=== PATIENT | female | born 1975 | race Caucasian/White ===

== ENCOUNTER → 2016-04-24 | Outpatient (CLI) | payer OTHER ==
[~2016-04-24] MED LIST: ASPI81TA85 PO; FURO1TAB15 PO; GABA600T PO; KLON2TAB PO; KLOR1TAB69 PO; LEXA1TAB2 PO; LIPI20TA PO; MOBI15TA PO; NEXI40CA PO; NITR0.4D6 TD; PROA1AER INH; ROBA750T4 PO; TRAM50TA2 PO; VOLT1GEL24 TD
[2016-04-24 15:19] LABS: MEAN CORPUSCULAR HEMOGLOBIN 30.9 pg (27.0-33.0); MEAN CORPUSCULAR HGB CONC 33.3 g/dl (32.0-36.5); MEAN CORPUSCULAR VOLUME 92.5 fl (80.0-96.0); RED CELL DISTRIBUTION WIDTH 14.3 % (11.5-14.5); WHITE BLOOD COUNT 11.1 K/mm3 (4.0-10.0)
[2016-04-24 15:40] LABS: ALBUMIN 3.1 GM/DL (3.2-5.2); ALKALINE PHOSPHATASE 181 U/L (45-117); ALT/SGPT 22 U/L (12-78); ANION GAP 8 MEQ/L (8-16); AST/SGOT 17 U/L (15-37); BILIRUBIN,TOTAL 0.2 MG/DL (0.2-1.0); BLOOD UREA NITROGEN 3 MG/DL (7-18); CALCIUM LEVEL 8.9 MG/DL (8.5-10.1); CARBON DIOXIDE LEVEL 30 MEQ/L (21-32); CHLORIDE LEVEL 101 MEQ/L (98-107); CREATININE FOR GFR 0.75 MG/DL (0.55-1.02); GLOMERULAR FILTRATION RATE > 60.0 (>58); GLUCOSE, FASTING 100 MG/DL (70-105); POTASSIUM SERUM 3.7 MEQ/L (3.5-5.1); SODIUM LEVEL 139 MEQ/L (136-145); TOTAL PROTEIN 6.4 GM/DL (6.4-8.2)
[2016-04-24 15:41] LABS: ALBUMIN/GLOBULIN RATIO 0.94 (1.00-1.93); THYROXINE (T4) 7.7 UG/DL (4.5-12.0)
== END ==
LOC: M LAB 14:34
PROVIDERS: ATTEND Nurse Practitioner Psychiatric/Mental Health
DX: Z00.00 Encounter for general adult medical examination without abnormal findings (principal)

== ENCOUNTER → 2016-05-05 | Outpatient (REF) | payer OTHER ==
[2016-05-05 12:26] LABS: TOTAL PROTEIN 5.9 GM/DL (6.4-8.2)
== END ==
LOC: M SFHCCLAY 08:47
PROVIDERS: ATTEND Family Medicine
DX: R74.8 Abnormal levels of other serum enzymes (principal); E88.09 Other disorders of plasma-protein metabolism, not elsewhere classified

== ENCOUNTER → 2016-05-18 | Outpatient (CLI) | payer OTHER ==
[2016-05-18 20:34] LABS: COMPLEMENT C3 141 MG/DL (90-180); COMPLEMENT C4 20.2 MG/DL (10-40); IMMUNOGLOBULIN G 628 MG/DL (681-1648); IMMUNOGLOBULIN M 65.2 MG/DL (40-230)
[2016-05-18 21:03] LABS: IMMUNOGLOBULIN E < 3.6 IU/ML (<100)
== END ==
LOC: M WUC 17:51
PROVIDERS: ATTEND Allergy & Immunology
DX: J32.0 Chronic maxillary sinusitis (principal); H10.45 Other chronic allergic conjunctivitis; J45.20 Mild intermittent asthma, uncomplicated; L27.2 Dermatitis due to ingested food; K52.29 Other allergic and dietetic gastroenteritis and colitis

== ENCOUNTER → 2016-05-18 | Outpatient (REF) | payer OTHER ==
[2016-05-21 00:06] LABS: Lyme Disease IgG/IgM Antibodie <0.91 ISR (0.00-0.90); Lyme Disease IgM Ab Quantitati <0.80 index (0.00-0.79)
== END ==
LOC: M SFHCCLAY 16:27
PROVIDERS: ATTEND Family Medicine
DX: Z20.9 Contact with and (suspected) exposure to unspecified communicable disease (principal); F33.1 Major depressive disorder, recurrent, moderate

== ENCOUNTER → 2016-08-11 | Outpatient (CLI) | payer OTHER ==
[~2016-08-11] MED LIST changes: +METH1CAP4 PO; +REXU1TAB3 PO
== END ==
LOC: M SLEEP 20:13
PROVIDERS: ATTEND Nurse Practitioner Adult Health
DX: G47.30 Sleep apnea, unspecified (principal)

== ENCOUNTER → 2016-08-11 | Outpatient (REF) | payer OTHER ==
[2016-08-11 16:54] LABS: ALBUMIN 2.8 GM/DL (3.2-5.2); ALKALINE PHOSPHATASE 145 U/L (45-117); ALT/SGPT 25 U/L (12-78); ANION GAP 4 MEQ/L (8-16); AST/SGOT 21 U/L (15-37); BILIRUBIN,TOTAL 0.3 MG/DL (0.2-1.0); BLOOD UREA NITROGEN 6 MG/DL (7-18); CARBON DIOXIDE LEVEL 33 MEQ/L (21-32); CHLORIDE LEVEL 106 MEQ/L (98-107); CREATININE FOR GFR 0.76 MG/DL (0.55-1.02); GLOMERULAR FILTRATION RATE > 60.0 (>58); GLUCOSE, FASTING 118 MG/DL (70-105); POTASSIUM SERUM 3.7 MEQ/L (3.5-5.1); SODIUM LEVEL 143 MEQ/L (136-145); TOTAL PROTEIN 6.3 GM/DL (6.4-8.2)
== END ==
LOC: M SFHCCLAY 11:14
PROVIDERS: ATTEND Family Medicine
DX: R60.9 Edema, unspecified (principal)

== ENCOUNTER 2016-08-17 19:07 | Emergency (ER) | payer OTHER ==
[~2016-08-17] VITALS: Ht 162.6 cm; Wt 90.7 kg
[~2016-08-17 19:07] MED LIST changes: -METH1CAP4 PO; -REXU1TAB3 PO
[2016-08-17] MEDS ORDERED: REXU1TAB3 PO (19:22)
[2016-08-17] MEDS ORDERED: METH1CAP4 PO (19:22)
[2016-08-17] MEDS ORDERED: ASPIRIN 81 MG CHEW TABLET PO ONE (20:00)
[2016-08-17] MEDS ORDERED: ATORVASTATIN 20 MG TAB PO ONE (20:00)
[2016-08-17 20:15] VITALS: BP 113/65
[2016-08-17] MEDS ORDERED: NITROGLYCERIN 0.4 MG SUBL TABLET SL STA (20:15)
[2016-08-17 20:28] LABS: BASO # 0.1 K/mm3 (0.0-0.2); BASO % 0.8 % (0.0-1.0); EOS # 0.3 K/mm3 (0.0-0.50); EOS % 2.5 % (0.0-3.0); LARGE UNSTAINED CELL # 0.3 K/mm3 (0.0-0.4); LARGE UNSTAINED CELL % 2.4 % (0.0-4.0); LYMPH # 3.3 K/mm3 (1.5-4.5); LYMPH % 27.6 % (24.0-44.0); MEAN CORPUSCULAR HEMOGLOBIN 30.3 pg (27.0-33.0); MEAN CORPUSCULAR HGB CONC 34.1 g/dl (32.0-36.5); MEAN CORPUSCULAR VOLUME 89.1 fl (80.0-96.0); MONO # 0.9 K/mm3 (0.0-0.8); MONO % 7.8 % (0.0-5.0); NEUTROPHILS # 7.1 K/mm3 (1.8-7.7); NEUTROPHILS % 58.9 % (36.0-66.0); PLATELET COUNT, AUTOMATED 283 k/mm3 (150-450); WHITE BLOOD COUNT 12.1 K/mm3 (4.0-10.0)
[2016-08-17 20:33] LABS: INR 1.1
[2016-08-17 20:34] LABS: CONTROL LINE HCG INT CTR LINE PRESENT
[2016-08-17 20:38] LABS: ALBUMIN 3.1 GM/DL (3.2-5.2); ALBUMIN/GLOBULIN RATIO 0.76 (1.00-1.93); ALKALINE PHOSPHATASE 156 U/L (45-117); ALT/SGPT 26 U/L (12-78); ANION GAP 7 MEQ/L (8-16); AST/SGOT 21 U/L (15-37); BILIRUBIN,DIRECT < 0.1 MG/DL (0.0-0.2); BILIRUBIN,TOTAL 0.4 MG/DL (0.2-1.0); BLOOD UREA NITROGEN 8 MG/DL (7-18); CALCIUM LEVEL 9.2 MG/DL (8.5-10.1); CARBON DIOXIDE LEVEL 34 MEQ/L (21-32); CHLORIDE LEVEL 90 MEQ/L (98-107); CREATININE FOR GFR 0.95 MG/DL (0.55-1.02); GLOMERULAR FILTRATION RATE > 60.0 (>58); GLUCOSE, FASTING 112 MG/DL (70-105); POTASSIUM SERUM 2.6 MEQ/L (3.5-5.1); SODIUM LEVEL 131 MEQ/L (136-145); TOTAL PROTEIN 7.2 GM/DL (6.4-8.2)
[2016-08-17] MEDS ORDERED: MORPHINE 2 MG/ML 1ML SYRINGE IV ONE (20:45)
[2016-08-17] MEDS ORDERED: KCL 10MEQ IN 100ML SWI (KRUN) 10 MEQ in APPROPRIATE DILUENT 1 EA IV ONE ×2 (21:00)
[2016-08-17] MEDS ORDERED: POTASSIUM CHLORIDE 10 MEQ SR TABLET PO ONE (21:00)
[2016-08-17 21:05] LABS: MAGNESIUM LEVEL 1.7 MG/DL (1.8-2.4)
[2016-08-17] MEDS ORDERED: MAG SULF 1GM/100ML (MAG RUN) 1 GM in APPROPRIATE DILUENT 1 EA IV ONE (21:15)
[2016-08-17] MEDS: NS 1,000 ML IV SCH ×2 (21:53→22:05)
[2016-08-17] MEDS ORDERED: CLOPIDOGREL 300 MG TAB (PLAVIX) PO STA (22:05)
[2016-08-17] MEDS ORDERED: ONDANSETRON 4MG/2ML VIAL (J2405) IV ONE (22:15)
[2016-08-17] MEDS ORDERED: GI COCKTAIL 50ML BTL(HYOSCYAMINE/MAALOX/LIDOCAINE VISCOUS)(1:3:1) PO ONE (22:30)
[2016-08-17 23:26] VITALS: BP 100/62
--- NOTE | 2016-08-18 00:51 | REP ---
Clinical: Chest pain. Technique: PA and lateral. Comparison: 05/05/2012. Findings: Right middle lobe atelectasis noted. Mediastinum and cardiac silhouette normal. The inner lung gilman clear without further consolidation, effusion, or pneumothorax. Skeletal structures intact. Impression: Right middle lobe atelectasis. Signed by Escobar Haddad MD 08/18/2016 12:42 A
--- NOTE | 2016-08-18 11:55 | ECGEPIP ---
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
--- NOTE | 2016-08-18 12:04 | ECGEPIP ---
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
== END 2016-08-17 23:38 | disposition short-term general hospital (02) ==
LOC: M ED 20:38
DX: I20.0 Unstable angina (principal); R07.89 Other chest pain; R06.02 Shortness of breath; E87.6 Hypokalemia; I25.2 Old myocardial infarction; K21.9 Gastro-esophageal reflux disease without esophagitis; E78.5 Hyperlipidemia, unspecified; F31.9 Bipolar disorder, unspecified; F90.9 Attention-deficit hyperactivity disorder, unspecified type; F17.210 Nicotine dependence, cigarettes, uncomplicated; Z79.899 Other long term (current) drug therapy; Z79.82 Long term (current) use of aspirin; Z79.891 Long term (current) use of opiate analgesic; Z91.041 Radiographic dye allergy status; Z91.013 Allergy to seafood; Z95.5 Presence of coronary angioplasty implant and graft

== ENCOUNTER → 2016-08-21 | Outpatient (REF) | payer OTHER ==
[~2016-08-21] MED LIST changes: +METH1CAP4 PO; +REXU1TAB3 PO
[2016-08-21 18:03] LABS: INR 0.96
[2016-08-21 18:35] LABS: ANION GAP 10 MEQ/L (8-16); BLOOD UREA NITROGEN 9 MG/DL (7-18); CARBON DIOXIDE LEVEL 32 MEQ/L (21-32); CHLORIDE LEVEL 97 MEQ/L (98-107); CHOLESTEROL LEVEL 156 MG/DL (<200); CREATININE FOR GFR 0.99 MG/DL (0.55-1.02); FERRITIN 18 NG/ML (8-252); FREE T4 1.17 NG/DL (0.76-1.46); GLOMERULAR FILTRATION RATE > 60.0 (>58); GLUCOSE, FASTING 144 MG/DL (70-105); POTASSIUM SERUM 2.8 MEQ/L (3.5-5.1); SODIUM LEVEL 139 MEQ/L (136-145); TRIGLYCERIDES LEVEL 209 MG/DL (<150)
[2016-08-23 09:34] LABS: HEPATITIS B SURFACE ANTIBODY NEGATIVE (POSITIVE)
== END ==
LOC: M SFHCCLAY 10:18
PROVIDERS: ATTEND Family Medicine
DX: E88.09 Other disorders of plasma-protein metabolism, not elsewhere classified (principal); Z95.5 Presence of coronary angioplasty implant and graft

== ENCOUNTER → 2016-08-22 | Outpatient (REF) | payer OTHER | LOC: M SFHCCLAY 11:43 | PROVIDERS: ATTEND Family Medicine | DX: E88.09 Other disorders of plasma-protein metabolism, not elsewhere classified (principal); Z95.5 Presence of coronary angioplasty implant and graft ==

== ENCOUNTER → 2016-08-28 | Outpatient (REF) | payer OTHER ==
[2016-08-28 18:06] LABS: ANION GAP 5 MEQ/L (8-16); BLOOD UREA NITROGEN 9 MG/DL (7-18); CALCIUM LEVEL 8.8 MG/DL (8.5-10.1); CARBON DIOXIDE LEVEL 29 MEQ/L (21-32); CHLORIDE LEVEL 109 MEQ/L (98-107); CREATININE FOR GFR 0.87 MG/DL (0.55-1.02); GLOMERULAR FILTRATION RATE > 60.0 (>58); GLUCOSE, FASTING 137 MG/DL (70-105); SODIUM LEVEL 143 MEQ/L (136-145)
== END ==
LOC: M SFHCCLAY 09:26
PROVIDERS: ATTEND Family Medicine
DX: K21.9 Gastro-esophageal reflux disease without esophagitis (principal); E88.09 Other disorders of plasma-protein metabolism, not elsewhere classified

== ENCOUNTER → 2016-08-29 | Outpatient (REF) | payer OTHER ==
[2016-08-29 20:53] LABS: MEAN CORPUSCULAR HEMOGLOBIN 30.6 pg (27.0-33.0); MEAN CORPUSCULAR HGB CONC 33.5 g/dl (32.0-36.5); MEAN CORPUSCULAR VOLUME 91.2 fl (80.0-96.0); PLATELET COUNT, AUTOMATED 340 k/mm3 (150-450); RED CELL DISTRIBUTION WIDTH 14.2 % (11.5-14.5); WHITE BLOOD COUNT 10.9 K/mm3 (4.0-10.0)
[2016-08-29 21:57] LABS: EOSINOPHILS 5 % (0-5); PLATELET CLUMPS MODERATE AMT
[2016-08-31 10:50] LABS: ALBUMIN 3.46 GM/DL (3.29-5.55); ALBUMIN % 49.4 % (55.8-66.1); GAMMA GLOBULIN % 12.4 % (11.1-18.8)
== END ==
LOC: M SFHCCLAY 12:20
PROVIDERS: ATTEND Family Medicine
DX: R60.9 Edema, unspecified (principal); R80.9 Proteinuria, unspecified

== ENCOUNTER → 2016-09-21 | Outpatient (REF) | payer OTHER ==
[~2016-09-21] MED LIST changes: -FURO1TAB15 PO; +FURO80TA2 PO; -PROA1AER INH; +PROAAER10 INH; +VOLT1GEL15 TD; -VOLT1GEL24 TD
== END ==
LOC: M LAB REF 11:05
PROVIDERS: ATTEND Internal Medicine
DX: R94.5 Abnormal results of liver function studies (principal); K21.9 Gastro-esophageal reflux disease without esophagitis; R14.0 Abdominal distension (gaseous); R10.30 Lower abdominal pain, unspecified

== ENCOUNTER → 2016-09-24 | Outpatient (CLI) | payer OTHER ==
--- NOTE | 2016-09-26 10:08 | SLEEPCENT ---
DATE OF PROCEDURE: 09/24/2016 REQUESTING PROVIDER: Dorothea Ramos NP INTERPRETATION: Nocturnal polysomnography was performed for the titration of pressure therapy in this patient with obstructive sleep apnea syndrome, apnea-hypopnea index of 11. For testing, a ResMed Quattro full face mask of extra small size was used, 4 cm of water pressure were applied to the circuit and the lights were extinguished. 8 hours and 14 minutes of data were reviewed. There were 437 minutes of sleep identified. Sleep latency was prolonged at 29 minutes. Rapid eye movement (REM) latency was prolonged at 331 minutes. Sleep architecture improved late in the study with one REM period. Overall sleep efficiency was 89%. The patient's electrocardiogram (EKG) showed a sinus rhythm with an average heart rate of 67 beats per minute. Electroencephalogram (EEG) showed fairly normal waveforms for awake and sleep. Respiratory events were fully palliated with CPAP at a pressure of 7. However, hypoventilatory oxygen desaturations were seen, prompting the addition of supplemental oxygen. Best sleep was seen on a CPAP pressure of 7 with 4 liters of oxygen bled through the system to address hypoventilatory desaturations. IMPRESSION: 1. Obstructive sleep apnea syndrome (G47.33). RECOMMENDATIONS: Nightly use of pressure therapy at 7 cm of water with 4 liters of oxygen bled through the system to address hypoventilatory oxygen desaturations.
== END ==
LOC: M SLEEP 20:00
PROVIDERS: ATTEND Nurse Practitioner Adult Health
DX: G47.33 Obstructive sleep apnea (adult) (pediatric) (principal)

== ENCOUNTER → 2016-09-27 | Outpatient (REF) | payer OTHER | LOC: M LAB REF 16:22 | PROVIDERS: ATTEND Internal Medicine | DX: R19.7 Diarrhea, unspecified (principal) ==

== ENCOUNTER → 2016-10-04 | Outpatient (REF) | payer OTHER | LOC: M LAB REF 12:48 | PROVIDERS: ATTEND Internal Medicine Nephrology | DX: N39.41 Urge incontinence (principal); I10 Essential (primary) hypertension ==

== ENCOUNTER → 2016-10-19 | Outpatient (REF) | payer OTHER | LOC: M SFHCCLAY 13:34 | PROVIDERS: ATTEND Family Medicine | DX: Z53.8 Procedure and treatment not carried out for other reasons (principal); R60.9 Edema, unspecified; E83.42 Hypomagnesemia ==

== ENCOUNTER → 2016-10-19 | Outpatient (REF) | payer OTHER | LOC: M LAB REF 16:23 | PROVIDERS: ATTEND Internal Medicine Nephrology | DX: I10 Essential (primary) hypertension (principal) ==

== ENCOUNTER → 2016-10-23 | Outpatient (REF) | payer OTHER ==
[2016-10-23 18:27] LABS: ALBUMIN 2.9 GM/DL (3.2-5.2); ANION GAP 9 MEQ/L (8-16); BLOOD UREA NITROGEN 9 MG/DL (7-18); CALCIUM LEVEL 8.6 MG/DL (8.5-10.1); CARBON DIOXIDE LEVEL 26 MEQ/L (21-32); CHLORIDE LEVEL 108 MEQ/L (98-107); CREATININE FOR GFR 0.86 MG/DL (0.55-1.02); GLOMERULAR FILTRATION RATE > 60.0 (>58); GLUCOSE, FASTING 94 MG/DL (70-105); MAGNESIUM LEVEL 2.1 MG/DL (1.8-2.4); PHOSPHORUS LEVEL 3.1 MG/DL (2.5-4.9); POTASSIUM SERUM 4.5 MEQ/L (3.5-5.1); SODIUM LEVEL 143 MEQ/L (136-145)
== END ==
LOC: M SFHCCLAY 10:57
PROVIDERS: ATTEND Family Medicine
DX: R60.9 Edema, unspecified (principal); E83.42 Hypomagnesemia

== ENCOUNTER → 2016-11-23 | Outpatient (REF) | payer OTHER ==
[2016-11-24 12:42] LABS: ALBUMIN 3.2 GM/DL (3.2-5.2); ANION GAP 8 MEQ/L (8-16); BLOOD UREA NITROGEN 10 MG/DL (7-18); CALCIUM LEVEL 9.1 MG/DL (8.5-10.1); CARBON DIOXIDE LEVEL 30 MEQ/L (21-32); CHLORIDE LEVEL 104 MEQ/L (98-107); CREATININE FOR GFR 0.89 MG/DL (0.55-1.02); FREE T4 0.94 NG/DL (0.76-1.46); GLOMERULAR FILTRATION RATE > 60.0 (>58); GLUCOSE, FASTING 96 MG/DL (70-105); PHOSPHORUS LEVEL 3.2 MG/DL (2.5-4.9); SODIUM LEVEL 142 MEQ/L (136-145)
== END ==
LOC: M SFHCCLAY 16:03
PROVIDERS: ATTEND Family Medicine
DX: E21.3 Hyperparathyroidism, unspecified (principal); I25.10 Atherosclerotic heart disease of native coronary artery without angina pectoris

== ENCOUNTER → 2016-12-12 | Outpatient (REF) | payer OTHER ==
[2016-12-12 18:08] LABS: CALCIUM, URINE 6.4 MG/DL; URINE PHOSPHOROUS 40.1 MG/DL
[2016-12-12 22:07] LABS: PHOSPHOROUS 24 HR URINE 781.9 MG/24HR (400-1300)
== END ==
LOC: M LAB REF 11:33
PROVIDERS: ATTEND Internal Medicine
DX: E21.3 Hyperparathyroidism, unspecified (principal)

== ENCOUNTER → 2017-01-23 | Outpatient (CLI) | payer OTHER ==
--- NOTE | 2017-01-23 13:47 | REP ---
Clinical: Acute cough x 3 weeks . Comparison: 08/17/2016 . Technique: PA and lateral. Findings: The mediastinum and cardiac silhouette are normal. The lung gilman are clear and without acute consolidation, effusion, or pneumothorax. The skeletal structures are intact and normal. Impression: 1. No acute cardiopulmonary process. Signed by Escobar Haddad MD 01/23/2017 01:38 P
== END ==
LOC: M CLY 13:10
PROVIDERS: ATTEND Nurse Practitioner Family
DX: R06.02 Shortness of breath (principal); R05 Cough; J01.41 Acute recurrent pansinusitis

== ENCOUNTER → 2017-01-23 | Outpatient (REF) | payer OTHER ==
[2017-01-23 19:35] LABS: ALBUMIN 3.1 GM/DL (3.2-5.2); ALBUMIN/GLOBULIN RATIO 0.84 (1.00-1.93); ALKALINE PHOSPHATASE 177 U/L (45-117); ALT/SGPT 22 U/L (12-78); ANION GAP 9 MEQ/L (8-16); AST/SGOT 15 U/L (7-37); BILIRUBIN,TOTAL 0.2 MG/DL (0.2-1.0); BLOOD UREA NITROGEN 6 MG/DL (7-18); CALCIUM LEVEL 8.6 MG/DL (8.5-10.1); CARBON DIOXIDE LEVEL 27 MEQ/L (21-32); CHLORIDE LEVEL 103 MEQ/L (98-107); CREATININE FOR GFR 1.04 MG/DL (0.55-1.02); GLOMERULAR FILTRATION RATE > 60.0 (>58); GLUCOSE, FASTING 91 MG/DL (70-105); POTASSIUM SERUM 3.6 MEQ/L (3.5-5.1); SODIUM LEVEL 139 MEQ/L (136-145); TOTAL PROTEIN 6.8 GM/DL (6.4-8.2)
[2017-01-23 19:50] LABS: BASO # 0.1 10^3/uL (0.0-0.2); BASO % 0.7 % (0.0-1.0); EOS # 0.1 10^3/uL (0.0-0.50); EOS % 0.8 % (0.0-3.0); IMMATURE GRANULOCYTE % 0.2 % (0-0); LYMPH # 1.6 10^3/uL (1.5-4.5); LYMPH % 19.2 % (24.0-44.0); MEAN CORPUSCULAR HEMOGLOBIN 28.3 pg (27.0-33.0); MEAN CORPUSCULAR HGB CONC 32.9 g/dl (32.0-36.5); MEAN CORPUSCULAR VOLUME 86.1 fl (80.0-96.0); MONO # 1.2 10^3/uL (0.0-0.8); MONO % 13.5 % (0.0-5.0); NEUTROPHILS # 5.6 10^3/uL (1.8-7.7); NEUTROPHILS % 65.6 % (36.0-66.0); PLATELET COUNT, AUTOMATED 164 10^3/uL (150-450); RED CELL DISTRIBUTION WIDTH 15.9 % (11.5-14.5); WHITE BLOOD COUNT 8.5 10^3/uL (4.0-10.0)
== END ==
LOC: M SFHCCLAY 11:14
PROVIDERS: ATTEND Nurse Practitioner Family
DX: R06.02 Shortness of breath (principal); R05 Cough; J01.41 Acute recurrent pansinusitis

== ENCOUNTER → 2017-01-26 | Outpatient (REF) | payer OTHER ==
[~2017-01-26] MED LIST changes: +ADDE1TAB14 PO; +ASPI1TAB PO; +ATOR40TA75 PO; +BREO1INH INH; +CLON1TAB; +CLON1TAB PO; +DOXY100T16; +DOXY100T16 PO; +ESCI20TA; +ESCI20TA PO; +LINZ290C PO; +MAG400TA; +MAGN400T5 PO; +MELO15TA4 PO; +OMEP40CA2; +OMEP40CA2 PO; +POTA10CA PO; +REXU1TAB4; +REXU1TAB4 PO; +RITA10TA; +TRAZ1TAB14; +TRAZ1TAB14 PO
== END ==
LOC: M SFHCCLAY 09:05
PROVIDERS: ATTEND Family Medicine
DX: J40 Bronchitis, not specified as acute or chronic (principal)

== ENCOUNTER 2017-01-29 15:18 | Inpatient (IN) | payer OTHER ==
[~2017-01-29] VITALS: Ht 162.6 cm; Wt 94.7 kg
[~2017-01-29 15:18] MED LIST changes: -ADDE1TAB14 PO; -ASPI1TAB PO; -ATOR40TA75 PO; -BREO1INH INH; -CLON1TAB; -CLON1TAB PO; -DOXY100T16; -DOXY100T16 PO; -ESCI20TA; -ESCI20TA PO; -LINZ290C PO; -MAG400TA; -MAGN400T5 PO; -MELO15TA4 PO; -OMEP40CA2; -OMEP40CA2 PO; -POTA10CA PO; -REXU1TAB4; -REXU1TAB4 PO; -RITA10TA; -TRAZ1TAB14; -TRAZ1TAB14 PO
[2017-01-29] MEDS ORDERED: MAG400TA (15:31)
[2017-01-29] MEDS ORDERED: TRAZ1TAB14 (15:31)
[2017-01-29] MEDS ORDERED: DOXY100T16 (15:31)
[2017-01-29] MEDS ORDERED: RITA10TA (15:31)
[2017-01-29] MEDS ORDERED: OMEP40CA2 (15:31)
[2017-01-29] MEDS ORDERED: ADDE1TAB14 PO ×2 (15:31→19:25)
[2017-01-29] MEDS ORDERED: REXU1TAB4 (15:31)
[2017-01-29] MEDS ORDERED: CLON1TAB (15:32)
[2017-01-29] MEDS ORDERED: ESCI20TA (15:32)
[2017-01-29] MEDS ORDERED: dexameTHASONE 20 MG/5 ML VIAL (J1100) IV ONE (17:00)
[2017-01-29] MEDS ORDERED: ALBUTEROL SULFATE 2.5 MG/0.5 ML INH NEB SOLN NEB ONE (17:00)
[2017-01-29] MEDS ORDERED: IPRATROPIUM 0.5MG/ALBUTEROL 2.5MG INH SOL UD 3ML (DUONEB)(J7620) NEB PRN (17:00)
[2017-01-29 17:35] LABS: BASO % 0.2 % (0.0-1.0); IMMATURE GRANULOCYTE % 0.8 % (0-0); LYMPH # 2.6 10^3/uL (1.5-4.5); LYMPH % 10.7 % (24.0-44.0); MEAN CORPUSCULAR HEMOGLOBIN 28.4 pg (27.0-33.0); MEAN CORPUSCULAR HGB CONC 33.8 g/dl (32.0-36.5); MONO # 0.7 10^3/uL (0.0-0.8); MONO % 2.8 % (0.0-5.0); NEUTROPHILS % 85.5 % (36.0-66.0); PLATELET COUNT, AUTOMATED 441 10^3/uL (150-450); RED CELL DISTRIBUTION WIDTH 15.6 % (11.5-14.5); WHITE BLOOD COUNT 24.6 10^3/uL (4.0-10.0)
--- NOTE | 2017-01-29 17:40 | REP ---
Clinical: Acute cough and dyspnea. Technique: PA and lateral. Comparison: 01/23/2017, 08/17/2016. Findings: Mediastinum and cardiac silhouette are within normal limits. Coarsened interstitial changes may reflect bronchitis. No focal consolidation, effusion, or pneumothorax. Skeletal structures are intact. Impression: Cannot exclude bronchitis. No focal consolidation. Signed by Escobar Haddad MD 01/29/2017 05:31 P
[2017-01-29 18:01] LABS: ALBUMIN 3.2 GM/DL (3.2-5.2); ALBUMIN/GLOBULIN RATIO 0.73 (1.00-1.93); ALKALINE PHOSPHATASE 163 U/L (45-117); ALT/SGPT 27 U/L (12-78); AST/SGOT 14 U/L (7-37); BILIRUBIN,DIRECT < 0.1 MG/DL (0.0-0.2); BILIRUBIN,TOTAL 0.4 MG/DL (0.2-1.0); TOTAL PROTEIN 7.6 GM/DL (6.4-8.2)
[2017-01-29 18:08] LABS: ANION GAP 6 MEQ/L (8-16); BLOOD UREA NITROGEN 16 MG/DL (7-18); CALCIUM LEVEL 9.8 MG/DL (8.5-10.1); CARBON DIOXIDE LEVEL 31 MEQ/L (21-32); CHLORIDE LEVEL 101 MEQ/L (98-107); CREATININE FOR GFR 0.97 MG/DL (0.55-1.02); GLOMERULAR FILTRATION RATE > 60.0 (>58); GLUCOSE, FASTING 117 MG/DL (70-105); POTASSIUM SERUM 4.1 MEQ/L (3.5-5.1); SODIUM LEVEL 138 MEQ/L (136-145)
[2017-01-29] MEDS ORDERED: ACETAMINOPHEN TAB 650MG DOSE (2X325MG) PO PRN (19:00)
--- NOTE | 2017-01-29 19:23 | HPEPDOC ---
General Date of Admission Jan 29, 2017 at 18:49 Chief Complaint The patient is a 41-year-old female Presented to the ER with complaints of difficulty breathing History of Present Illness Patient is a 41-year-old female with a PMHx of CAD s/p stent, DLP, Asthma (diagnosed as a child), ASA on CPAP, Depression / Anxiety and GERD who presented to the ER with complaints of difficulty breathing. Patient has noted that 3 days prior. She had seen her primary care provider Evelin Mcallister, who prescribed her prednisone, ipratropium inhaler and Levaquin. Despite being on this therapy patient had failed to improve. Currently she notes that her breathing has worsened over a total of 7 days. She notes that she has a cough that is nonproductive. She denies any fevers but notes that she does experience chills. She denies any chest pain or palpitations. She does report wheezing. Patient denies any nausea, vomiting, abdominal pain, constipation, diarrhea or dysuria. In the emergency room patient has received 2 breathing treatments and a dose of dexamethasone. Upon evaluation, patient was found to have a drop in her saturation. Hospitalist team was then called for admission Allergies Coded Allergies: Contrast Media (Verified Allergy, Intermediate, IVP DYE - HIVES, 08/17/16) Prochlorperazine (Verified Allergy, Intermediate, HIVES, 08/17/16) Shellfish Allergy (Verified Allergy, Mild, anaphylaxsis, 08/17/16) FISH (Unverified Allergy, Unknown, 08/17/16) Past Medical History Medical History CAD s/p stent, DLP, Asthma (diagnosed as a child), ASA on CPAP, Depression / Anxiety and GERD Surgical History Appendectomy Cholecystectomy Family History - Mother with history of breast cancer - Father with history of HTN Social History - Denies the use of alcohol or illicit substances, smoker of 20 years at 1 pack per day - Denies recent travel or sick contacts - Lives with daughter - Occupation; unemployed Review of Symptoms Other systems Review of systems negative otherwise stated in HPI Vital Signs - Vitals: BP 115/74, HR 80, RR 18, Sat 94%RA, Temp 98.1F - General: Lying in bed, No acute distress, Speaking in full sentences, AAOx3 - HEENT: NC, AT, PERRLA, EOMI - CVS: RRR, +S1S2 - Lungs: Fair air entry bilaterally, Diffuse wheezing at bilateral lung gilman - Abdomen: Soft, Non-distended, Non-tender - Extremities: No lower extremity edema, No calf tenderness - Neuro: No focal motor or sensory deficit - Skin: No visible rashes Laboratory Data Labs 24H Laboratory Tests 2 01/29/17 17:29: Immature Granulocyte % (Auto) 0.8H, White Blood Count 24.6H, Red Blood Count 5.11, Hemoglobin 14.5, Hematocrit 42.9, Mean Corpuscular Volume 84.0, Mean Corpuscular Hemoglobin 28.4, Mean Corpuscular Hemoglobin Concent 33.8, Red Cell Distribution Width 15.6H, Platelet Count 441, Neutrophils (%) (Auto) 85.5H, Lymphocytes (%) (Auto) 10.7L, Monocytes (%) (Auto) 2.8, Eosinophils (%) (Auto) 0.0, Basophils (%) (Auto) 0.2, Neutrophils # (Auto) 21.0H, Lymphocytes # (Auto) 2.6, Monocytes # (Auto) 0.7, Eosinophils # (Auto) 0.0, Basophils # (Auto) 0.0, Immature Granulocyte # (Auto) 0.2H, Nucleated Red Blood Cells % (auto) 0.0, Anion Gap 6L, Glomerular Filtration Rate > 60.0, Blood Urea Nitrogen 16, Creatinine 0.97, Sodium Level 138, Potassium Level 4.1, Chloride Level 101, Carbon Dioxide Level 31, Calcium Level 9.8, Aspartate Amino Transf (AST/SGOT) 14 , Alanine Aminotransferase (ALT/SGPT) 27, Alkaline Phosphatase 163H, Total Bilirubin 0.4, Direct Bilirubin < 0.1, Total Protein 7.6, Albumin 3.2, Albumin/ Globulin Ratio 0.73L CBC/BMP Laboratory Tests 01/29/17 17:29 Red Blood Count 5.11, Mean Corpuscular Volume 84.0, Mean Corpuscular Hemoglobin 28.4, Mean Corpuscular Hemoglobin Concent 33.8, Red Cell Distribution Width 15.6 H, Neutrophils (%) (Auto) 85.5 H, Lymphocytes (%) (Auto) 10.7 L, Monocytes (%) (Auto) 2.8, Eosinophils (%) (Auto) 0.0, Basophils (%) (Auto) 0.2, Neutrophils # (Auto) 21.0 H, Lymphocytes # (Auto) 2.6, Monocytes # (Auto) 0.7, Eosinophils # (Auto) 0.0, Basophils # (Auto) 0.0, Calcium Level 9.8 Microbiology Microbiology 01/29/17 Gram Stain, Received Pending 01/29/17 Sputum Culture, Received Pending Plan / VTE VTE Prophylaxis Ordered?: Yes Plan Plan Dyspnea - likely 2/2 acute exacerbation of asthma, possible COPD - Presented to the ER with complaints of difficulty breathing and nonproductive cough - Physical reveals diffuse wheezing bilaterally - Leukocytosis of 24.6 noted, however, the patient has been on prednisone as an outpatient - CXR 01/29: cannot exclude bronchitis, no focal consolidation - Sputum cultures pending - Respiratory panel 01/26: Parainfluenza 4 - Will c/w Solumedrol and Duoneb inhaler CAD s/p stent - c/w ASA DLP - c/w Statin ASA on CPAP - allow home CPAP use Depression / Anxiety - c/w current regimen GERD - c/w PPI DVT prophylaxis - Will start KANG Avilez MD Jan 29, 2017 19:23
[2017-01-29] MEDS ORDERED: MAGN400T5 PO (19:25)
[2017-01-29] MEDS ORDERED: LINZ290C PO (19:25)
[2017-01-29] MEDS ORDERED: BREO1INH INH (19:25)
[2017-01-29] MEDS ORDERED: TRAM50TA2 PO (19:25)
[2017-01-29] MEDS ORDERED: REXU1TAB4 PO (19:25)
[2017-01-29] MEDS ORDERED: GABA600T PO (19:25)
[2017-01-29] MEDS ORDERED: ATOR40TA75 PO (19:25)
[2017-01-29] MEDS ORDERED: TRAZ1TAB14 PO (19:25)
[2017-01-29] MEDS ORDERED: POTA10CA PO (19:25)
[2017-01-29] MEDS ORDERED: ASPI1TAB PO (19:25)
[2017-01-29] MEDS ORDERED: CLON1TAB PO ×2 (19:25)
[2017-01-29] MEDS ORDERED: ESCI20TA PO (19:25)
[2017-01-29] MEDS ORDERED: MELO15TA4 PO (19:25)
[2017-01-29] MEDS ORDERED: FURO80TA2 PO (19:25)
[2017-01-29] MEDS ORDERED: DOXY100T16 PO (19:25)
[2017-01-29] MEDS ORDERED: OMEP40CA2 PO (19:25)
[2017-01-29] MEDS: IPRATROPIUM 0.5MG/ALBUTEROL 2.5MG INH SOL UD 3ML (DUONEB)(J7620) NEB SCH (20:03)
[2017-01-29 20:50] VITALS: BP 112/71
[2017-01-29] MEDS: ADDERALL 5 MG TAB PO SCH (23:05)
[2017-01-29] MEDS: clonazePAM 1 MG TAB PO SCH (23:06)
[2017-01-29] MEDS: ATORVASTATIN 20 MG TAB PO SCH (23:06)
[2017-01-29] MEDS: GABAPENTIN 300 MG CAP PO SCH (23:06)
[2017-01-29] MEDS: traZODone 50 MG TAB PO SCH (23:07)
[2017-01-29] MEDS: ASPIRIN 81 MG ENTERIC TAB PO SCH (23:07)
[2017-01-29] MEDS: OMEPRAZOLE 20 MG CAP PO SCH (23:11)
[2017-01-30] VITALS (9 sets, daily range): BP systolic 106–128; BP diastolic 55–71; O2SAT 91–95
[2017-01-30] MEDS: IPRATROPIUM 0.5MG/ALBUTEROL 2.5MG INH SOL UD 3ML (DUONEB)(J7620) NEB SCH ×6 (01:19→22:17)
[2017-01-30] MEDS: methylPREDNISolone INJ 125 MG/2 ML VIAL (J2930) IV SCH ×3 (02:58→17:49)
[2017-01-30 06:56] LABS: BASO % 0.1 % (0.0-1.0); IMMATURE GRANULOCYTE % 0.7 % (0-0); LYMPH # 1.4 10^3/uL (1.5-4.5); LYMPH % 8.7 % (24.0-44.0); MEAN CORPUSCULAR HEMOGLOBIN 28.3 pg (27.0-33.0); MEAN CORPUSCULAR HGB CONC 33.7 g/dl (32.0-36.5); MEAN CORPUSCULAR VOLUME 84.1 fl (80.0-96.0); MONO # 0.3 10^3/uL (0.0-0.8); MONO % 2.1 % (0.0-5.0); NEUTROPHILS # 14.2 10^3/uL (1.8-7.7); NEUTROPHILS % 88.4 % (36.0-66.0); RED CELL DISTRIBUTION WIDTH 15.5 % (11.5-14.5)
[2017-01-30 07:06] LABS: PLATELET COUNT, AUTOMATED 337 10^3/uL (150-450)
[2017-01-30 07:15] LABS: ALBUMIN 2.6 GM/DL (3.2-5.2); ALBUMIN/GLOBULIN RATIO 0.63 (1.00-1.93); ALKALINE PHOSPHATASE 143 U/L (45-117); ALT/SGPT 23 U/L (12-78); ANION GAP 8 MEQ/L (8-16); AST/SGOT 11 U/L (7-37); BILIRUBIN,TOTAL 0.2 MG/DL (0.2-1.0); BLOOD UREA NITROGEN 18 MG/DL (7-18); CALCIUM LEVEL 9.1 MG/DL (8.5-10.1); CARBON DIOXIDE LEVEL 28 MEQ/L (21-32); CHLORIDE LEVEL 100 MEQ/L (98-107); GLOMERULAR FILTRATION RATE > 60.0 (>58); GLUCOSE, FASTING 207 MG/DL (70-105); MAGNESIUM LEVEL 2.4 MG/DL (1.8-2.4); POTASSIUM SERUM 3.8 MEQ/L (3.5-5.1); SODIUM LEVEL 136 MEQ/L (136-145); TOTAL PROTEIN 6.7 GM/DL (6.4-8.2)
[2017-01-30] MEDS: ADDERALL 5 MG TAB PO SCH ×2 (08:53→14:16)
[2017-01-30] MEDS: GABAPENTIN 300 MG CAP PO SCH ×2 (08:54→20:41)
[2017-01-30] MEDS: OMEPRAZOLE 20 MG CAP PO SCH ×2 (08:54→20:42)
[2017-01-30] MEDS: ENOXAPARIN 40 MG/0.4 ML SYRINGE (J1650) SC SCH (08:54)
[2017-01-30] MEDS: traMADol 50 MG TAB PO SCH (08:55)
[2017-01-30] MEDS: MAGNESIUM OXIDE 400 MG TAB (MAG-OX) PO SCH (08:56)
[2017-01-30] MEDS: ESCITALOPRAM OXALATE 10 MG TAB (LEXAPRO) PO SCH (08:56)
[2017-01-30] MEDS: clonazePAM 0.5 MG TAB PO SCH (08:56)
[2017-01-30] MEDS: IPRATROPIUM 0.5MG/ALBUTEROL 2.5MG INH SOL UD 3ML (DUONEB)(J7620) NEB PRN ×2 (09:08→11:17)
--- NOTE | 2017-01-30 12:01 | IPNPDOC ---
Subjective Date Seen The patient was seen on 01/30/17. Subjective Chief Complaint/HPI The patient is a 41-year-old female admitted with a reason for visit of Shortness Of Breath. Events since last encounter Some improvement in symptoms. Constitutional: Reports: Fatigue, Denies: Chills, Fever, Night Sweats Skin: Denies: Rash, Lesions, Breakdown Pulmonary: Reports: Dyspnea, Cough Cardiovascular: Denies: Chest Pain, Palpitations, Orthopnea, Paroxysmal Noc. Dyspnea, Lt Headedness Gastrointestinal: Denies: Nausea, Vomiting, Abdominal Pain, Diarrhea, Constipation Genitourinary: Denies: Dysuria, Frequency, Incontinence, Retention Psych: Reports: Mood Normal, Denies: Depression, Memory Issues Objective Physical Examination General Exam: Positive: Alert, No Acute Distress Neck Exam: Positive: Supple, Negative: JVD, thyromegaly Heart Exam: Positive: Rate Normal, Regular Rhythm, Normal S1, Normal S2, Negative: Murmurs, Rubs Abdomen Exam: Positive: Normal bowel sounds, Soft, Negative: Tenderness, Hepatospenomegaly Extremity Exam: Positive: Normal pulses, Negative: Clubbing, Cyanosis, Edema Psych Exam: Positive: Mental status NL, Mood NL, Oriented x 3 Assessment /Plan Problems (1) Infection due to parainfluenza virus 4 Status: Acute (2) Asthma exacerbation Status: Acute Problem Text: Duoneb q 4 hrs. solumedrol 60 iv q 8 hrs. transition to po prednisone in am pending symptoms. (3) CAD (coronary artery disease) Status: Chronic Problem Specific Plan: Monitor Clinically Problem Text: no active symptoms nor HF (4) Depression with anxiety Status: Chronic Problem Specific Plan: Monitor Clinically (5) Subacute sinusitis Status: Acute Problem Text: 3W B maxillary tenderness/PND-first rxed c cefuroxime x 7D s improvement; then changed to levo x 5D c slow improvement-last dose 01/27 per patient-resume for 14D total course (6) Nicotine use disorder Status: Chronic Problem Text: Stable off nicotine x 3D-defers patch-encouraged to stay off at dc Plan/VTE VTE Prophylaxis Ordered?: Yes (Lovenox) VS, I&O, 24H, Fishbone Vital Signs/I&O Vital Signs Date Time Temp Pulse Resp B/P (MAP) Pulse Ox O2 Delivery O2 Flow Rate FiO2 01/30/17 08:55 22 01/30/17 08:00 97.7 67 116/58 (77) 95 Room Air 01/30/17 05:51 4.0 I&O- Last 24 Hours up to 6 AM 01/31/17 06:00 Intake Total 360 ml Output Total 500 ml Balance -140 ml Laboratory Data 24H LABS Laboratory Tests 2 01/29/17 17:29: Immature Granulocyte % (Auto) 0.8H, White Blood Count 24.6H, Red Blood Count 5.11, Hemoglobin 14.5, Hematocrit 42.9, Mean Corpuscular Volume 84.0, Mean Corpuscular Hemoglobin 28.4, Mean Corpuscular Hemoglobin Concent 33.8, Red Cell Distribution Width 15.6H, Platelet Count 441, Neutrophils (%) (Auto) 85.5H, Lymphocytes (%) (Auto) 10.7L, Monocytes (%) (Auto) 2.8, Eosinophils (%) (Auto) 0.0, Basophils (%) (Auto) 0.2, Neutrophils # (Auto) 21.0H, Lymphocytes # (Auto) 2.6, Monocytes # (Auto) 0.7, Eosinophils # (Auto) 0.0, Basophils # (Auto) 0.0, Immature Granulocyte # (Auto) 0.2H, Nucleated Red Blood Cells % (auto) 0.0, Anion Gap 6L, Glomerular Filtration Rate > 60.0, Blood Urea Nitrogen 16, Creatinine 0.97, Sodium Level 138, Potassium Level 4.1, Chloride Level 101, Carbon Dioxide Level 31, Calcium Level 9.8, Aspartate Amino Transf (AST/SGOT) 14 , Alanine Aminotransferase (ALT/SGPT) 27, Alkaline Phosphatase 163H, Total Bilirubin 0.4, Direct Bilirubin < 0.1, Total Protein 7.6, Albumin 3.2, Albumin/ Globulin Ratio 0.73L 01/30/17 06:33: Immature Granulocyte % (Auto) 0.7H, White Blood Count 16.0H, Red Blood Count 4.59, Hemoglobin 13.0, Hematocrit 38.6, Mean Corpuscular Volume 84.1, Mean Corpuscular Hemoglobin 28.3, Mean Corpuscular Hemoglobin Concent 33.7, Red Cell Distribution Width 15.5H, Platelet Count 337#, Neutrophils (%) (Auto) 88.4H, Lymphocytes (%) (Auto) 8.7L, Monocytes (%) (Auto) 2.1, Eosinophils (%) (Auto) 0.0, Basophils (%) (Auto) 0.1, Neutrophils # (Auto) 14.2H, Lymphocytes # (Auto) 1.4L, Monocytes # (Auto) 0.3, Eosinophils # (Auto) 0.0, Basophils # (Auto) 0.0, Immature Granulocyte # (Auto) 0.1H, Nucleated Red Blood Cells % (auto) 0.0, Anion Gap 8, Glomerular Filtration Rate > 60.0, Blood Urea Nitrogen 18, Creatinine 1.00, Sodium Level 136, Potassium Level 3.8, Chloride Level 100, Carbon Dioxide Level 28, Calcium Level 9.1, Aspartate Amino Transf (AST/SGOT) 11 , Alanine Aminotransferase (ALT/SGPT) 23, Alkaline Phosphatase 143H, Total Bilirubin 0.2, Total Protein 6.7, Albumin 2.6L, Albumin/Globulin Ratio 0.63L, Magnesium Level 2.4 CBC/BMP Laboratory Tests 01/29/17 17:29 Red Blood Count 5.11, Mean Corpuscular Volume 84.0, Mean Corpuscular Hemoglobin 28.4, Mean Corpuscular Hemoglobin Concent 33.8, Red Cell Distribution Width 15.6 H, Neutrophils (%) (Auto) 85.5 H, Lymphocytes (%) (Auto) 10.7 L, Monocytes (%) (Auto) 2.8, Eosinophils (%) (Auto) 0.0, Basophils (%) (Auto) 0.2, Neutrophils # (Auto) 21.0 H, Lymphocytes # (Auto) 2.6, Monocytes # (Auto) 0.7, Eosinophils # (Auto) 0.0, Basophils # (Auto) 0.0, Calcium Level 9.8 01/30/17 06:33 Red Blood Count 4.59, Mean Corpuscular Volume 84.1, Mean Corpuscular Hemoglobin 28.3, Mean Corpuscular Hemoglobin Concent 33.7, Red Cell Distribution Width 15.5 H, Neutrophils (%) (Auto) 88.4 H, Lymphocytes (%) (Auto) 8.7 L, Monocytes ( %) (Auto) 2.1, Eosinophils (%) (Auto) 0.0, Basophils (%) (Auto) 0.1, Neutrophils # (Auto) 14.2 H, Lymphocytes # (Auto) 1.4 L, Monocytes # (Auto) 0.3 , Eosinophils # (Auto) 0.0, Basophils # (Auto) 0.0, Calcium Level 9.1, Aspartate Amino Transf (AST/SGOT) 11, Alanine Aminotransferase (ALT/SGPT) 23, Alkaline Phosphatase 143 H, Total Bilirubin 0.2, Total Protein 6.7, Albumin 2.6 L Microbiology Microbiology 01/29/17 Gram Stain - Final, Complete 01/29/17 Sputum Culture - Final, Complete Tatiana Mcallister Jan 30, 2017 12:02 Ivan Dong M.D. Jan 30, 2017 15:56
[2017-01-30] MEDS: LevoFLOXacin 500 MG TABLET PO SCH (17:48)
[2017-01-30] MEDS: ASPIRIN 81 MG ENTERIC TAB PO SCH (20:41)
[2017-01-30] MEDS: clonazePAM 1 MG TAB PO SCH (20:42)
[2017-01-30] MEDS: traZODone 50 MG TAB PO SCH (20:42)
[2017-01-30] MEDS: ATORVASTATIN 20 MG TAB PO SCH (20:42)
[2017-01-31] VITALS (8 sets, daily range): BP systolic 111–132; BP diastolic 55–72; O2SAT 90–95
[2017-01-31] MEDS: methylPREDNISolone INJ 125 MG/2 ML VIAL (J2930) IV SCH ×2 (01:25→10:02)
[2017-01-31] MEDS: IPRATROPIUM 0.5MG/ALBUTEROL 2.5MG INH SOL UD 3ML (DUONEB)(J7620) NEB SCH ×6 (03:14→23:51)
[2017-01-31] MEDS: LevoFLOXacin 500 MG TABLET PO SCH (05:54)
[2017-01-31] MEDS: IPRATROPIUM 0.5MG/ALBUTEROL 2.5MG INH SOL UD 3ML (DUONEB)(J7620) NEB PRN ×2 (06:18→10:41)
[2017-01-31 07:03] LABS: BASO % 0.1 % (0.0-1.0); LYMPH # 1.2 10^3/uL (1.5-4.5); LYMPH % 6.1 % (24.0-44.0); MEAN CORPUSCULAR HEMOGLOBIN 27.7 pg (27.0-33.0); MEAN CORPUSCULAR VOLUME 84.1 fl (80.0-96.0); MONO # 0.5 10^3/uL (0.0-0.8); MONO % 2.2 % (0.0-5.0); NEUTROPHILS # 18.3 10^3/uL (1.8-7.7); NEUTROPHILS % 90.6 % (36.0-66.0); PLATELET COUNT, AUTOMATED 383 10^3/uL (150-450); RED CELL DISTRIBUTION WIDTH 15.9 % (11.5-14.5); WHITE BLOOD COUNT 20.2 10^3/uL (4.0-10.0)
[2017-01-31 07:16] LABS: ALBUMIN 2.6 GM/DL (3.2-5.2); ALKALINE PHOSPHATASE 154 U/L (45-117); ALT/SGPT 24 U/L (12-78); ANION GAP 6 MEQ/L (8-16); AST/SGOT 9 U/L (7-37); BILIRUBIN,TOTAL 0.3 MG/DL (0.2-1.0); BLOOD UREA NITROGEN 14 MG/DL (7-18); CALCIUM LEVEL 9.4 MG/DL (8.5-10.1); CARBON DIOXIDE LEVEL 32 MEQ/L (21-32); CHLORIDE LEVEL 99 MEQ/L (98-107); CREATININE FOR GFR 0.94 MG/DL (0.55-1.02); GLOMERULAR FILTRATION RATE > 60.0 (>58); GLUCOSE, FASTING 184 MG/DL (70-105); MAGNESIUM LEVEL 2.4 MG/DL (1.8-2.4); POTASSIUM SERUM 4.2 MEQ/L (3.5-5.1); SODIUM LEVEL 137 MEQ/L (136-145); TOTAL PROTEIN 6.9 GM/DL (6.4-8.2)
[2017-01-31] MEDS: OMEPRAZOLE 20 MG CAP PO SCH ×2 (08:17→20:14)
[2017-01-31] MEDS: ADDERALL 5 MG TAB PO SCH ×2 (08:19→14:21)
[2017-01-31] MEDS: clonazePAM 0.5 MG TAB PO SCH (08:19)
[2017-01-31] MEDS: ESCITALOPRAM OXALATE 10 MG TAB (LEXAPRO) PO SCH (08:20)
[2017-01-31] MEDS: MAGNESIUM OXIDE 400 MG TAB (MAG-OX) PO SCH (08:20)
[2017-01-31] MEDS: GABAPENTIN 300 MG CAP PO SCH ×2 (08:20→20:14)
[2017-01-31] MEDS: traMADol 50 MG TAB PO SCH (08:22)
[2017-01-31] MEDS: ENOXAPARIN 40 MG/0.4 ML SYRINGE (J1650) SC SCH (08:22)
--- NOTE | 2017-01-31 10:42 | IPNPDOC ---
Subjective Date Seen The patient was seen on 01/31/17. Subjective Chief Complaint/HPI The patient is a 41-year-old female admitted with a reason for visit of Shortness Of Breath. Events since last encounter showing improvement in breathing symptoms. Continues to require 4LNC. Using CPAP overnight. Sats 92%-96% on 4LNC Constitutional: Denies: Chills, Fever, Night Sweats Pulmonary: Denies: Dyspnea, Cough Gastrointestinal: Denies: Nausea, Vomiting, Abdominal Pain, Diarrhea, Constipation Objective Physical Examination General Exam: Positive: Alert, No Acute Distress Neck Exam: Positive: Supple, Negative: JVD, thyromegaly Chest Exam: Positive: Clear to auscultation Heart Exam: Positive: Rate Normal, Regular Rhythm, Normal S1, Normal S2, Negative: Murmurs, Rubs Abdomen Exam: Positive: Normal bowel sounds, Soft, Negative: Tenderness, Hepatospenomegaly Extremity Exam: Positive: Normal pulses, Negative: Clubbing, Cyanosis, Edema Psych Exam: Positive: Mental status NL, Mood NL, Oriented x 3 Assessment /Plan Problems (1) Infection due to parainfluenza virus 4 Status: Acute (2) Asthma exacerbation Status: Acute Problem Text: 01/31/2017: Wheezing improved. Continues to require 4LNC. Transition to po Prednisone Duoneb q 4 hrs. solumedrol 60 iv q 8 hrs. transition to po prednisone in am pending symptoms. (3) CAD (coronary artery disease) Status: Chronic Problem Specific Plan: Monitor Clinically Problem Text: no active symptoms nor HF (4) Depression with anxiety Status: Chronic Problem Specific Plan: Monitor Clinically (5) Subacute sinusitis Status: Acute Problem Text: 3W B maxillary tenderness/PND-first rxed c cefuroxime x 7D s improvement; then changed to levo x 5D c slow improvement-last dose 01/27 per patient-resume for 14D total course (6) Nicotine use disorder Status: Chronic Problem Text: Stable off nicotine x 3D-defers patch-encouraged to stay off at dc Plan/VTE VTE Prophylaxis Ordered?: Yes (Lovenox) Plan Duplicate note - see other note from today's date (KES) VS, I&O, 24H, Fishbone Vital Signs/I&O Vital Signs Date Time Temp Pulse Resp B/P (MAP) Pulse Ox O2 Delivery O2 Flow Rate FiO2 01/31/17 08:30 98.1 90 22 129/62 (84) 96 Nasal Cannula 4.0 I&O- Last 24 Hours up to 6 AM 02/01/17 06:00 Intake Total 840 ml Output Total 600 ml Balance 240 ml Laboratory Data 24H LABS Laboratory Tests 2 01/31/17 06:45: Immature Granulocyte % (Auto) 1.0H, White Blood Count 20.2H, Red Blood Count 4.58, Hemoglobin 12.7, Hematocrit 38.5, Mean Corpuscular Volume 84.1, Mean Corpuscular Hemoglobin 27.7, Mean Corpuscular Hemoglobin Concent 33.0, Red Cell Distribution Width 15.9H, Platelet Count 383, Neutrophils (%) (Auto) 90.6H, Lymphocytes (%) (Auto) 6.1L, Monocytes (%) (Auto) 2.2, Eosinophils (%) (Auto) 0.0, Basophils (%) (Auto) 0.1, Neutrophils # (Auto) 18.3H, Lymphocytes # (Auto) 1.2L, Monocytes # (Auto) 0.5, Eosinophils # (Auto) 0.0, Basophils # (Auto) 0.0, Immature Granulocyte # (Auto) 0.2H, Nucleated Red Blood Cells % (auto) 0.0, Anion Gap 6L, Glomerular Filtration Rate > 60.0, Blood Urea Nitrogen 14, Creatinine 0.94, Sodium Level 137, Potassium Level 4.2, Chloride Level 99, Carbon Dioxide Level 32, Calcium Level 9.4, Aspartate Amino Transf (AST/SGOT) 9 , Alanine Aminotransferase (ALT/SGPT) 24, Alkaline Phosphatase 154H, Total Bilirubin 0.3, Total Protein 6.9, Albumin 2.6L, Magnesium Level 2.4, Albumin/ Globulin Ratio 0.60L CBC/BMP Laboratory Tests 01/31/17 06:45 Red Blood Count 4.58, Mean Corpuscular Volume 84.1, Mean Corpuscular Hemoglobin 27.7, Mean Corpuscular Hemoglobin Concent 33.0, Red Cell Distribution Width 15.9 H, Neutrophils (%) (Auto) 90.6 H, Lymphocytes (%) (Auto) 6.1 L, Monocytes ( %) (Auto) 2.2, Eosinophils (%) (Auto) 0.0, Basophils (%) (Auto) 0.1, Neutrophils # (Auto) 18.3 H, Lymphocytes # (Auto) 1.2 L, Monocytes # (Auto) 0.5 , Eosinophils # (Auto) 0.0, Basophils # (Auto) 0.0, Calcium Level 9.4, Aspartate Amino Transf (AST/SGOT) 9, Alanine Aminotransferase (ALT/SGPT) 24, Alkaline Phosphatase 154 H, Total Bilirubin 0.3, Total Protein 6.9, Albumin 2.6 L Microbiology Microbiology 01/29/17 Gram Stain - Final, Complete 01/29/17 Sputum Culture - Final, Complete Tatiana Mcallister Jan 31, 2017 10:42 NATI FREGOSO MD Jan 31, 2017 16:52
--- NOTE | 2017-01-31 13:02 | IPNPDOC ---
Subjective Date Seen The patient was seen on 01/30/17. Subjective Chief Complaint/HPI The patient is a 41-year-old female admitted with a reason for visit of Shortness Of Breath. Events since last encounter addendum for pulmonary exam. Objective Physical Examination General Exam: Positive: Alert, No Acute Distress Neck Exam: Positive: Supple, Negative: JVD, thyromegaly Chest Exam: Positive: Wheezing Heart Exam: Positive: Rate Normal, Regular Rhythm, Normal S1, Normal S2, Negative: Murmurs, Rubs Abdomen Exam: Positive: Normal bowel sounds, Soft, Negative: Tenderness, Hepatospenomegaly Extremity Exam: Positive: Normal pulses, Negative: Clubbing, Cyanosis, Edema Psych Exam: Positive: Mental status NL, Mood NL, Oriented x 3 Assessment /Plan Problems (1) Infection due to parainfluenza virus 4 Status: Acute (2) Asthma exacerbation Status: Acute Problem Text: 01/31/2017: Wheezing improved. Continues to require 4LNC. Transition to po Prednisone Duoneb q 4 hrs. solumedrol 60 iv q 8 hrs. transition to po prednisone in am pending symptoms. (3) CAD (coronary artery disease) Status: Chronic Problem Specific Plan: Monitor Clinically Problem Text: no active symptoms nor HF (4) Depression with anxiety Status: Chronic Problem Specific Plan: Monitor Clinically (5) Subacute sinusitis Status: Acute Problem Text: 3W B maxillary tenderness/PND-first rxed c cefuroxime x 7D s improvement; then changed to levo x 5D c slow improvement-last dose 01/27 per patient-resume for 14D total course (6) Nicotine use disorder Status: Chronic Problem Text: Stable off nicotine x 3D-defers patch-encouraged to stay off at dc Plan/VTE VTE Prophylaxis Ordered?: Yes (Lovenox) Plan Family Medicine Attending Note: I saw and examined Ms. Dominguez this afternoon; she has minimal expiratory wheezing on exam but has poor air movement throughout. I agree with transitioning to PO steroids, continuing levofloxacin and nebs, and adding chest PT. Will wean O2 as tolerated. (KES) VS, I&O, 24H, Fishbone Vital Signs/I&O Vital Signs Date Time Temp Pulse Resp B/P (MAP) Pulse Ox O2 Delivery O2 Flow Rate FiO2 01/31/17 12:02 Nasal Cannula 3.0 01/31/17 12:02 98.2 94 22 01/31/17 08:30 129/62 (84) 96 I&O- Last 24 Hours up to 6 AM 02/01/17 06:00 Intake Total 840 ml Output Total 600 ml Balance 240 ml Laboratory Data 24H LABS Laboratory Tests 2 01/31/17 06:45: Immature Granulocyte % (Auto) 1.0H, White Blood Count 20.2H, Red Blood Count 4.58, Hemoglobin 12.7, Hematocrit 38.5, Mean Corpuscular Volume 84.1, Mean Corpuscular Hemoglobin 27.7, Mean Corpuscular Hemoglobin Concent 33.0, Red Cell Distribution Width 15.9H, Platelet Count 383, Neutrophils (%) (Auto) 90.6H, Lymphocytes (%) (Auto) 6.1L, Monocytes (%) (Auto) 2.2, Eosinophils (%) (Auto) 0.0, Basophils (%) (Auto) 0.1, Neutrophils # (Auto) 18.3H, Lymphocytes # (Auto) 1.2L, Monocytes # (Auto) 0.5, Eosinophils # (Auto) 0.0, Basophils # (Auto) 0.0, Immature Granulocyte # (Auto) 0.2H, Nucleated Red Blood Cells % (auto) 0.0, Anion Gap 6L, Glomerular Filtration Rate > 60.0, Blood Urea Nitrogen 14, Creatinine 0.94, Sodium Level 137, Potassium Level 4.2, Chloride Level 99, Carbon Dioxide Level 32, Calcium Level 9.4, Aspartate Amino Transf (AST/SGOT) 9 , Alanine Aminotransferase (ALT/SGPT) 24, Alkaline Phosphatase 154H, Total Bilirubin 0.3, Total Protein 6.9, Albumin 2.6L, Magnesium Level 2.4, Albumin/ Globulin Ratio 0.60L CBC/BMP Laboratory Tests 01/31/17 06:45 Red Blood Count 4.58, Mean Corpuscular Volume 84.1, Mean Corpuscular Hemoglobin 27.7, Mean Corpuscular Hemoglobin Concent 33.0, Red Cell Distribution Width 15.9 H, Neutrophils (%) (Auto) 90.6 H, Lymphocytes (%) (Auto) 6.1 L, Monocytes ( %) (Auto) 2.2, Eosinophils (%) (Auto) 0.0, Basophils (%) (Auto) 0.1, Neutrophils # (Auto) 18.3 H, Lymphocytes # (Auto) 1.2 L, Monocytes # (Auto) 0.5 , Eosinophils # (Auto) 0.0, Basophils # (Auto) 0.0, Calcium Level 9.4, Aspartate Amino Transf (AST/SGOT) 9, Alanine Aminotransferase (ALT/SGPT) 24, Alkaline Phosphatase 154 H, Total Bilirubin 0.3, Total Protein 6.9, Albumin 2.6 L Microbiology Microbiology 01/29/17 Gram Stain - Final, Complete 01/29/17 Sputum Culture - Final, Complete Tatiana Mcallister Jan 31, 2017 13:02 NATI FREGOSO MD Jan 31, 2017 16:52
[2017-01-31] MEDS: traZODone 50 MG TAB PO SCH (20:12)
[2017-01-31] MEDS: ASPIRIN 81 MG ENTERIC TAB PO SCH (20:13)
[2017-01-31] MEDS: clonazePAM 1 MG TAB PO SCH (20:13)
[2017-01-31] MEDS: ATORVASTATIN 20 MG TAB PO SCH (20:13)
[2017-01-31] MEDS ORDERED: predniSONE 20 MG TAB PO SCH (21:00)
[2017-02-01] VITALS (9 sets, daily range): BP systolic 130–136; BP diastolic 68–80; O2SAT 91–95
[2017-02-01] MEDS: IPRATROPIUM 0.5MG/ALBUTEROL 2.5MG INH SOL UD 3ML (DUONEB)(J7620) NEB SCH ×6 (03:35→22:57)
[2017-02-01] MEDS: LevoFLOXacin 500 MG TABLET PO SCH (05:58)
[2017-02-01 07:47] LABS: BASO % 0.2 % (0.0-1.0); IMMATURE GRANULOCYTE % 1.8 % (0-0); LYMPH # 1.3 10^3/uL (1.5-4.5); LYMPH % 7.1 % (24.0-44.0); MEAN CORPUSCULAR HEMOGLOBIN 28.3 pg (27.0-33.0); MEAN CORPUSCULAR HGB CONC 33.2 g/dl (32.0-36.5); MONO # 0.8 10^3/uL (0.0-0.8); MONO % 4.2 % (0.0-5.0); NEUTROPHILS # 16.2 10^3/uL (1.8-7.7); NEUTROPHILS % 86.7 % (36.0-66.0); PLATELET COUNT, AUTOMATED 379 10^3/uL (150-450); RED CELL DISTRIBUTION WIDTH 15.9 % (11.5-14.5); WHITE BLOOD COUNT 18.7 10^3/uL (4.0-10.0)
[2017-02-01 08:04] LABS: ALBUMIN 2.6 GM/DL (3.2-5.2); ALBUMIN/GLOBULIN RATIO 0.62 (1.00-1.93); ALKALINE PHOSPHATASE 148 U/L (45-117); ALT/SGPT 32 U/L (12-78); ANION GAP 6 MEQ/L (8-16); AST/SGOT 19 U/L (7-37); BILIRUBIN,TOTAL 0.3 MG/DL (0.2-1.0); BLOOD UREA NITROGEN 16 MG/DL (7-18); CALCIUM LEVEL 8.9 MG/DL (8.5-10.1); CARBON DIOXIDE LEVEL 30 MEQ/L (21-32); CHLORIDE LEVEL 101 MEQ/L (98-107); CREATININE FOR GFR 0.85 MG/DL (0.55-1.02); GLOMERULAR FILTRATION RATE > 60.0 (>58); GLUCOSE, FASTING 189 MG/DL (70-105); MAGNESIUM LEVEL 2.3 MG/DL (1.8-2.4); POTASSIUM SERUM 4.1 MEQ/L (3.5-5.1); SODIUM LEVEL 137 MEQ/L (136-145); TOTAL PROTEIN 6.8 GM/DL (6.4-8.2)
[2017-02-01] MEDS: clonazePAM 0.5 MG TAB PO SCH (08:22)
[2017-02-01] MEDS: OMEPRAZOLE 20 MG CAP PO SCH ×2 (08:22→20:17)
[2017-02-01] MEDS: MAGNESIUM OXIDE 400 MG TAB (MAG-OX) PO SCH (08:24)
[2017-02-01] MEDS: ESCITALOPRAM OXALATE 10 MG TAB (LEXAPRO) PO SCH (08:24)
[2017-02-01] MEDS: traMADol 50 MG TAB PO SCH (08:24)
[2017-02-01] MEDS: GABAPENTIN 300 MG CAP PO SCH ×2 (08:24→20:18)
[2017-02-01] MEDS: ADDERALL 5 MG TAB PO SCH ×2 (08:25→14:53)
[2017-02-01] MEDS: ENOXAPARIN 40 MG/0.4 ML SYRINGE (J1650) SC SCH (09:00)
--- NOTE | 2017-02-01 10:29 | IPNPDOC ---
Subjective Date Seen The patient was seen on 02/01/17. Subjective Chief Complaint/HPI The patient is a 41-year-old female admitted with a reason for visit of Shortness Of Breath. Events since last encounter noted improvement in airway movement. c/o sor ethroat and thursh symptoms, macules on tongue and cheeks. General: Reports: Fatigue Constitutional: Denies: Chills, Fever, Night Sweats Skin: Denies: Rash, Lesions, Breakdown Pulmonary: Reports: Dyspnea, Cough Cardiovascular: Denies: Chest Pain, Palpitations, Orthopnea, Paroxysmal Noc. Dyspnea, Lt Headedness Gastrointestinal: Denies: Nausea, Vomiting, Abdominal Pain, Diarrhea, Constipation Genitourinary: Denies: Dysuria, Frequency, Incontinence, Retention Objective Physical Examination General Exam: Positive: Alert, No Acute Distress Neck Exam: Positive: Supple, Negative: JVD, thyromegaly Chest Exam: Positive: Wheezing Heart Exam: Positive: Rate Normal, Regular Rhythm, Normal S1, Normal S2, Negative: Murmurs, Rubs Abdomen Exam: Positive: Normal bowel sounds, Soft, Negative: Tenderness, Hepatospenomegaly Extremity Exam: Positive: Normal pulses, Negative: Clubbing, Cyanosis, Edema Psych Exam: Positive: Mental status NL, Mood NL, Oriented x 3 Assessment /Plan Problems (1) Infection due to parainfluenza virus 4 Status: Acute (2) Asthma exacerbation Status: Acute Problem Text: 02/01/2017: continues to require oxygen. Prednisone 60 mg po tid. CXR today. may send home with oxygen in next few days. 01/31/2017: Wheezing improved. Continues to require 4LNC. Transition to po Prednisone Duoneb q 4 hrs. solumedrol 60 iv q 8 hrs. transition to po prednisone in am pending symptoms. (3) Oral candidiasis Status: Acute Problem Text: Nystatin swish and swallow. encouraged good oral hygiene. (4) CAD (coronary artery disease) Status: Chronic Problem Specific Plan: Monitor Clinically Problem Text: no active symptoms nor HF (5) Depression with anxiety Status: Chronic Problem Specific Plan: Monitor Clinically (6) Subacute sinusitis Status: Acute Problem Text: 3W B maxillary tenderness/PND-first rxed c cefuroxime x 7D s improvement; then changed to levo x 5D c slow improvement-last dose 01/27 per patient-resume for 14D total course (7) Nicotine use disorder Status: Chronic Problem Text: Stable off nicotine x 3D-defers patch-encouraged to stay off at dc Plan/VTE VTE Prophylaxis Ordered?: Yes (Lovenox) Plan Family Medicine Attending Note: I saw and examined Ms. Dominguez this morning; I discussed her care with OUSMANE Roche and I agree with her note as documented. Patient states she feels her breathing is better today and she has more air movement on exam today, though I did examine her after a nebulizer treatment. Continue steroids and levaquin. She may need to be discharged on O2 as she is still requiring 4 LPM. (KES) VS, I&O, 24H, Fishbone Vital Signs/I&O Vital Signs Date Time Temp Pulse Resp B/P (MAP) Pulse Ox O2 Delivery O2 Flow Rate FiO2 02/01/17 08:24 18 02/01/17 08:00 Nasal Cannula 4.0 02/01/17 08:00 91 02/01/17 08:00 98.2 100 134/74 (94) I&O- Last 24 Hours up to 6 AM 02/02/17 06:00 Intake Total 360 ml Output Total 400 ml Balance -40 ml Laboratory Data 24H LABS Laboratory Tests 2 02/01/17 07:20: Immature Granulocyte % (Auto) 1.8H, White Blood Count 18.7H, Red Blood Count 4.46, Hemoglobin 12.6, Hematocrit 37.9, Mean Corpuscular Volume 85.0, Mean Corpuscular Hemoglobin 28.3, Mean Corpuscular Hemoglobin Concent 33.2, Red Cell Distribution Width 15.9H, Platelet Count 379, Neutrophils (%) (Auto) 86.7H, Lymphocytes (%) (Auto) 7.1L, Monocytes (%) (Auto) 4.2, Eosinophils (%) (Auto) 0.0, Basophils (%) (Auto) 0.2, Neutrophils # (Auto) 16.2H, Lymphocytes # (Auto) 1.3L, Monocytes # (Auto) 0.8, Eosinophils # (Auto) 0.0, Basophils # (Auto) 0.0, Immature Granulocyte # (Auto) 0.3H, Nucleated Red Blood Cells % (auto) 0.0, Anion Gap 6L, Glomerular Filtration Rate > 60.0, Blood Urea Nitrogen 16, Creatinine 0.85, Sodium Level 137, Potassium Level 4.1, Chloride Level 101, Carbon Dioxide Level 30, Calcium Level 8.9, Aspartate Amino Transf (AST/SGOT) 19 , Alanine Aminotransferase (ALT/SGPT) 32, Alkaline Phosphatase 148H, Total Bilirubin 0.3, Total Protein 6.8, Albumin 2.6L, Magnesium Level 2.3, Albumin/ Globulin Ratio 0.62L CBC/BMP Laboratory Tests 02/01/17 07:20 Red Blood Count 4.46, Mean Corpuscular Volume 85.0, Mean Corpuscular Hemoglobin 28.3, Mean Corpuscular Hemoglobin Concent 33.2, Red Cell Distribution Width 15.9 H, Neutrophils (%) (Auto) 86.7 H, Lymphocytes (%) (Auto) 7.1 L, Monocytes ( %) (Auto) 4.2, Eosinophils (%) (Auto) 0.0, Basophils (%) (Auto) 0.2, Neutrophils # (Auto) 16.2 H, Lymphocytes # (Auto) 1.3 L, Monocytes # (Auto) 0.8 , Eosinophils # (Auto) 0.0, Basophils # (Auto) 0.0, Calcium Level 8.9, Aspartate Amino Transf (AST/SGOT) 19, Alanine Aminotransferase (ALT/SGPT) 32, Alkaline Phosphatase 148 H, Total Bilirubin 0.3, Total Protein 6.8, Albumin 2.6 L Microbiology Microbiology 01/29/17 Gram Stain - Final, Complete 01/29/17 Sputum Culture - Final, Complete Tatiana Mcallister Feb 01, 2017 10:29 NATI FREGOSO MD Feb 01, 2017 12:40
[2017-02-01] MEDS ORDERED: MIRALAX *UNIT DOSE* 17GM PACKET PO PRN (10:45)
--- NOTE | 2017-02-01 10:53 | REP ---
Clinical: Hypoxemia. Technique: PA and lateral. Comparison: 01/29/2017. Findings: Mediastinum and cardiac silhouette are normal. Lung gilman demonstrate increased coarsened perihilar markings suggesting bronchitis. No focal consolidation, effusion, or pneumothorax. Skeletal structures are intact. Impression: Findings suggest bronchitis. Signed by Escobar Haddad MD 02/01/2017 10:44 A
[2017-02-01] MEDS: NYSTATIN 500,000 U/5 ML SUSP UDC PO SCH ×2 (11:35→18:05)
[2017-02-01] MEDS: DOCUSATE SODIUM 100 MG CAP PO SCH ×2 (11:35→20:17)
[2017-02-01] MEDS ORDERED: NYSTATIN 500,000 U/5 ML SUSP UDC PO SCH (12:00)
[2017-02-01] MEDS: predniSONE 20 MG TAB PO SCH ×2 (16:24→20:16)
[2017-02-01] MEDS: clonazePAM 1 MG TAB PO SCH (20:16)
[2017-02-01] MEDS: traZODone 50 MG TAB PO SCH (20:16)
[2017-02-01] MEDS: ASPIRIN 81 MG ENTERIC TAB PO SCH ×2 (20:17→20:37)
[2017-02-01] MEDS: ATORVASTATIN 20 MG TAB PO SCH (20:18)
[2017-02-01] MEDS ORDERED: SENNA 8.6 MG TAB (SENOKOT) PO SCH (21:00)
[2017-02-02] VITALS (8 sets, daily range): BP systolic 123–143; BP diastolic 65–77; O2SAT 90–94
[2017-02-02] MEDS: NYSTATIN 500,000 U/5 ML SUSP UDC PO SCH ×2 (00:23→04:58)
[2017-02-02] MEDS: IPRATROPIUM 0.5MG/ALBUTEROL 2.5MG INH SOL UD 3ML (DUONEB)(J7620) NEB SCH ×2 (03:30→08:26)
[2017-02-02] MEDS: LevoFLOXacin 500 MG TABLET PO SCH (04:59)
[2017-02-02 06:38] LABS: BASO % 0.1 % (0.0-1.0); IMMATURE GRANULOCYTE % 2.4 % (0-0); LYMPH # 1.3 10^3/uL (1.5-4.5); LYMPH % 8.3 % (24.0-44.0); MEAN CORPUSCULAR HEMOGLOBIN 27.6 pg (27.0-33.0); MEAN CORPUSCULAR HGB CONC 32.8 g/dl (32.0-36.5); MEAN CORPUSCULAR VOLUME 84.2 fl (80.0-96.0); MONO # 0.6 10^3/uL (0.0-0.8); MONO % 3.8 % (0.0-5.0); NEUTROPHILS # 13.7 10^3/uL (1.8-7.7); NEUTROPHILS % 85.4 % (36.0-66.0); PLATELET COUNT, AUTOMATED 358 10^3/uL (150-450); RED CELL DISTRIBUTION WIDTH 15.9 % (11.5-14.5); WHITE BLOOD COUNT 16.1 10^3/uL (4.0-10.0)
[2017-02-02 06:54] LABS: ALBUMIN 2.4 GM/DL (3.2-5.2); ALBUMIN/GLOBULIN RATIO 0.63 (1.00-1.93); ALKALINE PHOSPHATASE 147 U/L (45-117); ALT/SGPT 36 U/L (12-78); ANION GAP 5 MEQ/L (8-16); AST/SGOT 19 U/L (7-37); BILIRUBIN,TOTAL 0.3 MG/DL (0.2-1.0); BLOOD UREA NITROGEN 16 MG/DL (7-18); CALCIUM LEVEL 8.8 MG/DL (8.5-10.1); CARBON DIOXIDE LEVEL 30 MEQ/L (21-32); CHLORIDE LEVEL 103 MEQ/L (98-107); CREATININE FOR GFR 0.78 MG/DL (0.55-1.02); GLOMERULAR FILTRATION RATE > 60.0 (>58); GLUCOSE, FASTING 179 MG/DL (70-105); MAGNESIUM LEVEL 2.5 MG/DL (1.8-2.4); POTASSIUM SERUM 4.1 MEQ/L (3.5-5.1); SODIUM LEVEL 138 MEQ/L (136-145); TOTAL PROTEIN 6.2 GM/DL (6.4-8.2)
[2017-02-02] MEDS: ADDERALL 5 MG TAB PO SCH (08:44)
[2017-02-02] MEDS: DOCUSATE SODIUM 100 MG CAP PO SCH (08:44)
[2017-02-02] MEDS: traMADol 50 MG TAB PO SCH (08:44)
[2017-02-02] MEDS: clonazePAM 0.5 MG TAB PO SCH (08:45)
[2017-02-02] MEDS: ESCITALOPRAM OXALATE 10 MG TAB (LEXAPRO) PO SCH (08:45)
[2017-02-02] MEDS: GABAPENTIN 300 MG CAP PO SCH (08:45)
[2017-02-02] MEDS: OMEPRAZOLE 20 MG CAP PO SCH (08:45)
[2017-02-02] MEDS: ENOXAPARIN 40 MG/0.4 ML SYRINGE (J1650) SC SCH (08:46)
[2017-02-02] MEDS: predniSONE 20 MG TAB PO SCH (08:46)
[2017-02-02] MEDS: MAGNESIUM OXIDE 400 MG TAB (MAG-OX) PO SCH (08:46)
[2017-02-02] MEDS ORDERED: PRED20TA PO (11:20)
[2017-02-02] MEDS ORDERED: IPRASOL4 NEB (11:20)
[2017-02-02] MEDS ORDERED: NICODIS TD (11:20)
[2017-02-02] MEDS ORDERED: NYST50SS PO (11:25)
--- NOTE | 2017-02-03 14:12 | DSES ---
DATE OF ADMISSION: 01/29/2017 DATE OF DISCHARGE: 02/02/2017 ATTENDING PHYSICIAN: Dr. Ryan Odonnell PRIMARY CARE PROVIDER: Dr. Krzysztof Holcomb HISTORY OF PRESENT ILLNESS: 41-year-old female with a past medical history of coronary artery disease (CAD) with stenting, dyslipidemia, asthma, obstructive sleep apnea (ASA) on CPAP, depression, anxiety, and gastroesophageal reflux disease (GERD) who [facility] to hypoxia in the office. The patient had had significant upper respiratory symptoms for several days. It had worsened just prior to her presentation in the office on 01/29/2017. She was found to have parainfluenza-4 on respiratory virus panel and was subsequently hypoxic in the office. HOSPITAL COURSE: The patient was placed on IV Solu-Medrol, given DuoNebs around the clock with in between as needed (p.r.n.) and slowly resolved over four days. In the last 24 hours, she has been weaned off of her oxygen, other than her routine oxygen bleed-in at night with her CPAP, and is anticipating discharge home today. IMAGING: Includes chest x-ray on 01/29/2017 and 02/01/2017. Bronchitis was noted. LABORATORIES: Have remained stable throughout her hospitalization. Most recent white blood cell count is 16,000, hemoglobin/hematocrit (H/H) of 12 and 36. Electrolytes are stable. PHYSICAL EXAMINATION: HEENT: Neck is supple, without lymphadenopathy or jugular venous distention (JVD). CARDIOVASCULAR: Heart rate and rhythm are regular. PULMONARY: Lungs are clear to auscultation throughout. ABDOMEN: Soft. Nontender. BILATERAL LOWER EXTREMITIES: Without any edema. NEUROLOGIC: She is alert and oriented times three. Conversation is appropriate and congruent. ASSESSMENT/DISCHARGE DIAGNOSES: 1. Acute respiratory distress with hypoxia secondary to parainfluenza-4. 2. Acute thrush secondary to steroid use and recurrent nebulizer therapy. 3. Bronchitis. SECONDARY DIAGNOSES: 1. Depression with anxiety. 2. Hyperlipidemia. 3. Coronary artery disease. PLAN: The patient will be discharged home. She should follow a 2 gram sodium diet. She states she will remain smoke free and nicotine replacement will be provided for her. She will follow up with PCP's office on 02/05/2017 at 4:[address] Ryan Odonnell. MEDICATIONS: - DuoNeb every 4 to 6 hours - nicotine patch, apply daily in the morning and remove at bedtime - Nystatin swish and swallow 5 mL by mouth every 6 hours - prednisone 60 mg by mouth three times a day, will need weaning dose at followup appointment - Adderall 20 mg by mouth twice a day - aspirin 81 mg daily - atorvastatin 40 mg daily - Rexulti 2 mg by mouth at bedtime - clonazepam 0.5 mg by mouth every a.m. - clonazepam 3 mg by mouth at bedtime - escitalopram oxylate 20 mg by mouth daily - Breo Ellipta one puff at bedtime - furosemide 80 mg daily - gabapentin 600 mg by mouth twice a day - Linzess 290 mcg by mouth daily as needed constipation - magnesium oxide 400 mg daily - meloxicam 15 mg daily - omeprazole 40 mg twice a day - potassium chloride 10 mEq twice a day - tramadol 50 mg by mouth every a.m. - trazodone 150 mg by mouth at bedtime The patient is discharged in stable and satisfactory condition with no further questions at the time of discharge.
== END 2017-02-02 12:04 | disposition home or self-care (01) | DRG 144 ==
LOC: M ED 15:18 → M ED INP 18:49 → M PED 20:53
PROVIDERS: ADMIT Internal Medicine; ATTEND Family Medicine
DX: J20.4 Acute bronchitis due to parainfluenza virus (principal); I25.10 Atherosclerotic heart disease of native coronary artery without angina pectoris; E78.5 Hyperlipidemia, unspecified; G47.33 Obstructive sleep apnea (adult) (pediatric); F41.8 Other specified anxiety disorders; F17.210 Nicotine dependence, cigarettes, uncomplicated; K21.9 Gastro-esophageal reflux disease without esophagitis; Z91.013 Allergy to seafood; Z91.041 Radiographic dye allergy status; Z88.8 Allergy status to other drugs, medicaments and biological substances; Z95.5 Presence of coronary angioplasty implant and graft; J45.901 Unspecified asthma with (acute) exacerbation; J01.00 Acute maxillary sinusitis, unspecified; B37.0 Candidal stomatitis

== ENCOUNTER → 2017-02-13 | Outpatient (CLI) | payer OTHER ==
[~2017-02-13] MED LIST changes: +ADDE1TAB14 PO; +ASPI1TAB PO; +ATOR40TA75 PO; +BREO1INH INH; +CLON1TAB; +CLON1TAB PO; +DOXY100T16; +DOXY100T16 PO; +ESCI20TA; +ESCI20TA PO; +IPRASOL4 NEB; +LINZ290C PO; +MAG400TA; +MAGN400T5 PO; +MELO15TA4 PO; +NICODIS TD; +NYST50SS PO; +OMEP40CA2; +OMEP40CA2 PO; +POTA10CA PO; +PRED20TA PO; +REXU1TAB4; +REXU1TAB4 PO; +RITA10TA; +TRAZ1TAB14; +TRAZ1TAB14 PO
--- NOTE | 2017-02-14 06:09 | REP ---
CHEST X-RAY: CLINICAL: Followup pneumonia/infiltrate. TECHNIQUE: PA and lateral. COMPARISON: Multiple examinations through 08/17/2016. FINDINGS: Mediastinum and cardiac silhouette are within normal limits. Chronic coarsened interstitial markings are again noted without focal consolidation, effusion, or pneumothorax. Skeletal structures are intact. IMPRESSION: Chronic increased coarsened markings may reflect chronic reactive airway disease. No focal consolidation.
== END ==
LOC: M CLY 15:09
PROVIDERS: ATTEND Family Medicine
DX: R93.8 Abnormal findings on diagnostic imaging of other specified body structures (principal)

== ENCOUNTER → 2017-02-20 | Outpatient (REF) | payer OTHER ==
[2017-02-20 16:37] LABS: BASO # 0.1 10^3/uL (0.0-0.2); BASO % 0.4 % (0.0-1.0); EOS # 0.5 10^3/uL (0.0-0.50); EOS % 3.9 % (0.0-3.0); IMMATURE GRANULOCYTE % 0.4 % (0-0); LYMPH # 4.1 10^3/uL (1.5-4.5); LYMPH % 32.4 % (24.0-44.0); MEAN CORPUSCULAR HEMOGLOBIN 28.5 pg (27.0-33.0); MEAN CORPUSCULAR HGB CONC 32.9 g/dl (32.0-36.5); MEAN CORPUSCULAR VOLUME 86.7 fl (80.0-96.0); MONO # 0.8 10^3/uL (0.0-0.8); MONO % 6.6 % (0.0-5.0); NEUTROPHILS # 7.2 10^3/uL (1.8-7.7); NEUTROPHILS % 56.3 % (36.0-66.0); PLATELET COUNT, AUTOMATED 209 10^3/uL (150-450); RED CELL DISTRIBUTION WIDTH 17.8 % (11.5-14.5); WHITE BLOOD COUNT 12.7 10^3/uL (4.0-10.0)
[2017-02-20 16:38] LABS: ANION GAP 6 MEQ/L (8-16); BLOOD UREA NITROGEN 10 MG/DL (7-18); CALCIUM LEVEL 8.5 MG/DL (8.5-10.1); CARBON DIOXIDE LEVEL 32 MEQ/L (21-32); CHLORIDE LEVEL 100 MEQ/L (98-107); CREATININE FOR GFR 0.77 MG/DL (0.55-1.02); GLOMERULAR FILTRATION RATE > 60.0 (>58); GLUCOSE, FASTING 86 MG/DL (70-105); SODIUM LEVEL 138 MEQ/L (136-145)
== END ==
LOC: M SFHCCLAY 11:15
PROVIDERS: ATTEND Family Medicine
DX: R06.02 Shortness of breath (principal)

== ENCOUNTER → 2017-02-23 | Outpatient (REF) | payer OTHER ==
[2017-02-23 17:22] LABS: ANION GAP 8 MEQ/L (8-16); BLOOD UREA NITROGEN 11 MG/DL (7-18); CALCIUM LEVEL 8.8 MG/DL (8.5-10.1); CARBON DIOXIDE LEVEL 30 MEQ/L (21-32); CHLORIDE LEVEL 99 MEQ/L (98-107); CREATININE FOR GFR 0.83 MG/DL (0.55-1.02); GLOMERULAR FILTRATION RATE > 60.0 (>58); GLUCOSE, FASTING 111 MG/DL (70-105); POTASSIUM SERUM 4.2 MEQ/L (3.5-5.1); SODIUM LEVEL 137 MEQ/L (136-145)
== END ==
LOC: M SFHCCLAY 13:17
PROVIDERS: ATTEND Family Medicine
DX: R06.02 Shortness of breath (principal)

== ENCOUNTER 2017-04-13 12:48 | Inpatient (IN) | payer OTHER ==
[~2017-04-13 12:48] MED LIST changes: +ACETAMINOPHEN TAB 650MG DOSE (2X325MG) PO; -ADDE1TAB14 PO; +ALBUTEROL SULFATE 2.5 MG/0.5 ML INH NEB SOLN NEB; -ASPI1TAB PO; -ASPI81TA85 PO; -ATOR40TA75 PO; -BREO1INH INH; -CLON1TAB; -CLON1TAB PO; -DOXY100T16; -DOXY100T16 PO; -ESCI20TA; -ESCI20TA PO; -FURO80TA2 PO; -GABA600T PO; -IPRASOL4 NEB; -KLON2TAB PO; -KLOR1TAB69 PO; -LEXA1TAB2 PO; -LINZ290C PO; -LIPI20TA PO; -MAG400TA; -MAGN400T5 PO; -MELO15TA4 PO; -METH1CAP4 PO; -MOBI15TA PO; -NEXI40CA PO; -NICODIS TD; -NITR0.4D6 TD; +NITROGLYCERIN 0.4 MG SUBL TABLET SL; -NYST50SS PO; -OMEP40CA2; -OMEP40CA2 PO; -POTA10CA PO; -PRED20TA PO; -PROAAER10 INH; -REXU1TAB3 PO; -REXU1TAB4; -REXU1TAB4 PO; -RITA10TA; -ROBA750T4 PO; -TRAM50TA2 PO; -TRAZ1TAB14; -TRAZ1TAB14 PO; -VOLT1GEL15 TD
[2017-04-13] MEDS: IPRATROPIUM 0.5MG/ALBUTEROL 2.5MG INH SOL UD 3ML (DUONEB)(J7620) NEB ×2 (13:43→21:45)
[2017-04-13] MEDS: NS 1,000 ML IV ×2 (13:46→20:31)
[2017-04-13] MEDS: metroNIDAZOLE 500 MG in APPROPRIATE DILUENT 1 EA IV ×2 (13:46→21:12)
[2017-04-13] MEDS: MORPHINE 2 MG/ML 1ML SYRINGE IV ×3 (13:46→21:12)
[2017-04-13] MEDS: guaiFENesin ER 600 MG TAB PO ×2 (14:59→21:12)
[2017-04-13 15:30] LABS: BASO # 0.1 10^3/uL (0.0-0.2); BASO % 0.7 % (0.0-1.0); EOS # 0.7 10^3/uL (0.0-0.50); EOS % 5.4 % (0.0-3.0); HEMOGLOBIN 13.2 g/dl (12.0-16.0); IMMATURE GRANULOCYTE # 0.1 10^3/uL (0-0); IMMATURE GRANULOCYTE % 0.4 % (0-0); LYMPH # 2.5 10^3/uL (1.5-4.5); LYMPH % 20.3 % (24.0-44.0); MEAN CORPUSCULAR HEMOGLOBIN 28.9 pg (27.0-33.0); MEAN CORPUSCULAR HGB CONC 33.8 g/dl (32.0-36.5); MEAN CORPUSCULAR VOLUME 85.3 fl (80.0-96.0); MONO # 0.9 10^3/uL (0.0-0.8); NEUTROPHILS # 8.1 10^3/uL (1.8-7.7); NEUTROPHILS % 66.2 % (36.0-66.0); PLATELET COUNT, AUTOMATED 451 10^3/uL (150-450); RED BLOOD COUNT 4.57 10^6/uL (4.00-5.40); RED CELL DISTRIBUTION WIDTH 17.2 % (11.5-14.5); WHITE BLOOD COUNT 12.2 10^3/uL (4.0-10.0)
[2017-04-13 15:53] LABS: ALBUMIN 2.9 GM/DL (3.2-5.2); ALBUMIN/GLOBULIN RATIO 0.83 (1.00-1.93); ALKALINE PHOSPHATASE 184 U/L (45-117); ALT/SGPT 21 U/L (12-78); ANION GAP 7 MEQ/L (8-16); AST/SGOT 14 U/L (7-37); BILIRUBIN,TOTAL 0.2 MG/DL (0.2-1.0); BLOOD UREA NITROGEN 4 MG/DL (7-18); CALCIUM LEVEL 8.6 MG/DL (8.5-10.1); CARBON DIOXIDE LEVEL 31 MEQ/L (21-32); CHLORIDE LEVEL 103 MEQ/L (98-107); CREATININE FOR GFR 0.62 MG/DL (0.55-1.30); GLOMERULAR FILTRATION RATE > 60.0 (>58); GLUCOSE, FASTING 116 MG/DL (70-100); MAGNESIUM LEVEL 1.9 MG/DL (1.8-2.4); POTASSIUM SERUM 3.2 MEQ/L (3.5-5.1); SODIUM LEVEL 141 MEQ/L (136-145); TOTAL PROTEIN 6.4 GM/DL (6.4-8.2)
[2017-04-13] MEDS: ONDANSETRON 4MG/2ML VIAL (J2405) IV (15:57)
[2017-04-13] MEDS: READI-CAT 2 PO ×2 (17:17→18:15)
[2017-04-13] MEDS: cefTAZidime 2 GM in D5W MINI-BAG PLUS 50 ML IV (17:17)
[2017-04-13] MEDS: ADDERALL 5 MG TAB PO (17:23)
[2017-04-13] MEDS: FUROSEMIDE 80 MG TAB PO (17:23)
[2017-04-13] MEDS: KETOROLAC 30 MG/ML VIAL (J1885) IV (18:17)
[2017-04-13] MEDS: REXULTI 2 MG PO (21:12)
[2017-04-13] MEDS: MONTELUKAST 10 MG TAB PO (21:13)
[2017-04-13] MEDS: GABAPENTIN 300 MG CAP PO (21:13)
[2017-04-13] MEDS: clonazePAM 1 MG TAB PO (21:13)
[2017-04-13] MEDS: ATORVASTATIN 20 MG TAB PO (21:13)
[2017-04-13] MEDS: MAGNESIUM OXIDE 400 MG TAB (MAG-OX) PO (21:14)
[2017-04-13] MEDS: POTASSIUM CHLORIDE 10 MEQ SR TABLET PO (21:14)
[2017-04-13] MEDS: FAMOTIDINE 20 MG TAB PO (21:14)
[2017-04-13] MEDS: traZODone 50 MG TAB PO (21:15)
[2017-04-13] MEDS: BUDESONIDE 0.5 MG/2 ML INHALATION SUSPENSION INH (21:45)
[2017-04-14] MEDS: KETOROLAC 30 MG/ML VIAL (J1885) IV ×5 (00:15→23:56)
[2017-04-14] MEDS: cefTAZidime 2 GM in D5W MINI-BAG PLUS 50 ML IV ×4 (00:15→23:56)
[2017-04-14] MEDS: IPRATROPIUM 0.5MG/ALBUTEROL 2.5MG INH SOL UD 3ML (DUONEB)(J7620) NEB ×4 (01:29→20:57)
[2017-04-14] MEDS: metroNIDAZOLE 500 MG in APPROPRIATE DILUENT 1 EA IV ×3 (05:29→21:01)
[2017-04-14] MEDS: NS 1,000 ML IV (05:29)
[2017-04-14] MEDS: BUDESONIDE 0.5 MG/2 ML INHALATION SUSPENSION INH ×2 (07:45→20:57)
[2017-04-14] MEDS: PANTOPRAZOLE 40MG INJ (PROTONIX) (C9113) IV (09:00)
[2017-04-14] MEDS: ESCITALOPRAM OXALATE 10 MG TAB (LEXAPRO) PO (09:04)
[2017-04-14] MEDS: guaiFENesin ER 600 MG TAB PO ×2 (09:04→19:54)
[2017-04-14] MEDS: ADDERALL 5 MG TAB PO (09:04)
[2017-04-14] MEDS: FUROSEMIDE 80 MG TAB PO (09:05)
[2017-04-14] MEDS: POTASSIUM CHLORIDE 10 MEQ SR TABLET PO ×2 (09:05→19:54)
[2017-04-14] MEDS: SPIRONOLACTONE 25 MG TAB PO (09:06)
[2017-04-14] MEDS: MAGNESIUM OXIDE 400 MG TAB (MAG-OX) PO ×2 (09:06→19:53)
[2017-04-14] MEDS: clonazePAM 1 MG TAB PO ×2 (09:06→19:53)
[2017-04-14] MEDS: ENOXAPARIN 40 MG/0.4 ML SYRINGE (J1650) SC (09:07)
[2017-04-14] MEDS: GABAPENTIN 300 MG CAP PO ×2 (10:09→19:53)
[2017-04-14] MEDS: KCL 20MEQ IN 0.45NS 1000ML 1,000 ML IV ×2 (12:00→19:54)
[2017-04-14 12:14] LABS: HEMATOCRIT 34.7 % (36.0-47.0); HEMOGLOBIN 11.5 g/dl (12.0-16.0); MEAN CORPUSCULAR HEMOGLOBIN 28.4 pg (27.0-33.0); MEAN CORPUSCULAR HGB CONC 33.1 g/dl (32.0-36.5); MEAN CORPUSCULAR VOLUME 85.7 fl (80.0-96.0); PLATELET COUNT, AUTOMATED 378 10^3/uL (150-450); RED BLOOD COUNT 4.05 10^6/uL (4.00-5.40); RED CELL DISTRIBUTION WIDTH 17.2 % (11.5-14.5); WHITE BLOOD COUNT 10.6 10^3/uL (4.0-10.0)
[2017-04-14 12:36] LABS: ALBUMIN 2.5 GM/DL (3.2-5.2); ALBUMIN/GLOBULIN RATIO 0.81 (1.00-1.93); ALKALINE PHOSPHATASE 160 U/L (45-117); ALT/SGPT 17 U/L (12-78); ANION GAP 5 MEQ/L (8-16); AST/SGOT 15 U/L (7-37); BILIRUBIN,TOTAL 0.3 MG/DL (0.2-1.0); BLOOD UREA NITROGEN 6 MG/DL (7-18); CALCIUM LEVEL 8.3 MG/DL (8.5-10.1); CARBON DIOXIDE LEVEL 31 MEQ/L (21-32); CHLORIDE LEVEL 107 MEQ/L (98-107); CREATININE FOR GFR 0.73 MG/DL (0.55-1.30); GLOMERULAR FILTRATION RATE > 60.0 (>58); GLUCOSE, FASTING 95 MG/DL (70-100); MAGNESIUM LEVEL 2.1 MG/DL (1.8-2.4); POTASSIUM SERUM 3.8 MEQ/L (3.5-5.1); SODIUM LEVEL 143 MEQ/L (136-145); TOTAL PROTEIN 5.6 GM/DL (6.4-8.2)
[2017-04-14] MEDS: ATORVASTATIN 20 MG TAB PO (19:52)
[2017-04-14] MEDS: REXULTI 2 MG PO (19:52)
[2017-04-14] MEDS: FAMOTIDINE 20 MG TAB PO (19:53)
[2017-04-14] MEDS: MONTELUKAST 10 MG TAB PO (19:54)
[2017-04-14] MEDS: MORPHINE 2 MG/ML 1ML SYRINGE IV (21:02)
[2017-04-14] MEDS: traZODone 50 MG TAB PO (21:02)
[2017-04-15] MEDS: ONDANSETRON 4 MG TAB (S0181) PO (00:01)
[2017-04-15] MEDS: IPRATROPIUM 0.5MG/ALBUTEROL 2.5MG INH SOL UD 3ML (DUONEB)(J7620) NEB ×4 (02:40→21:16)
[2017-04-15] MEDS: metroNIDAZOLE 500 MG in APPROPRIATE DILUENT 1 EA IV ×3 (06:24→21:43)
[2017-04-15] MEDS: KETOROLAC 30 MG/ML VIAL (J1885) IV ×2 (06:24→12:40)
[2017-04-15 07:17] LABS: HEMATOCRIT 33.7 % (36.0-47.0); HEMOGLOBIN 10.9 g/dl (12.0-16.0); MEAN CORPUSCULAR HGB CONC 32.3 g/dl (32.0-36.5); MEAN CORPUSCULAR VOLUME 86.6 fl (80.0-96.0); PLATELET COUNT, AUTOMATED 405 10^3/uL (150-450); RED BLOOD COUNT 3.89 10^6/uL (4.00-5.40); RED CELL DISTRIBUTION WIDTH 17.8 % (11.5-14.5); WHITE BLOOD COUNT 10.5 10^3/uL (4.0-10.0)
[2017-04-15 07:40] LABS: ANION GAP 7 MEQ/L (8-16); BLOOD UREA NITROGEN 8 MG/DL (7-18); CALCIUM LEVEL 8.6 MG/DL (8.5-10.1); CARBON DIOXIDE LEVEL 29 MEQ/L (21-32); CHLORIDE LEVEL 104 MEQ/L (98-107); CREATININE FOR GFR 0.75 MG/DL (0.55-1.30); GLOMERULAR FILTRATION RATE > 60.0 (>58); GLUCOSE, FASTING 81 MG/DL (70-100); SODIUM LEVEL 140 MEQ/L (136-145)
[2017-04-15] MEDS: BUDESONIDE 0.5 MG/2 ML INHALATION SUSPENSION INH ×2 (08:15→21:16)
[2017-04-15] MEDS: GABAPENTIN 300 MG CAP PO ×2 (08:30→20:22)
[2017-04-15] MEDS: PANTOPRAZOLE 40MG INJ (PROTONIX) (C9113) IV (08:30)
[2017-04-15] MEDS: cefTAZidime 2 GM in D5W MINI-BAG PLUS 50 ML IV ×3 (08:30→23:30)
[2017-04-15] MEDS: POTASSIUM CHLORIDE 10 MEQ SR TABLET PO ×2 (08:31→20:23)
[2017-04-15] MEDS: ESCITALOPRAM OXALATE 10 MG TAB (LEXAPRO) PO (08:31)
[2017-04-15] MEDS: clonazePAM 1 MG TAB PO ×2 (08:31→20:23)
[2017-04-15] MEDS: SPIRONOLACTONE 25 MG TAB PO (08:32)
[2017-04-15] MEDS: ENOXAPARIN 40 MG/0.4 ML SYRINGE (J1650) SC ×2 (08:32→09:00)
[2017-04-15] MEDS: ADDERALL 5 MG TAB PO ×2 (08:32→12:40)
[2017-04-15] MEDS: guaiFENesin ER 600 MG TAB PO ×2 (08:32→20:23)
[2017-04-15] MEDS: MAGNESIUM OXIDE 400 MG TAB (MAG-OX) PO ×2 (08:32→20:23)
[2017-04-15] MEDS: MORPHINE 2 MG/ML 1ML SYRINGE IV (20:22)
[2017-04-15] MEDS: KCL 20MEQ IN 0.45NS 1000ML 1,000 ML IV ×2 (20:22→21:53)
[2017-04-15] MEDS: ATORVASTATIN 20 MG TAB PO (20:23)
[2017-04-15] MEDS: FAMOTIDINE 20 MG TAB PO (20:23)
[2017-04-15] MEDS: MONTELUKAST 10 MG TAB PO (20:23)
[2017-04-15] MEDS: REXULTI 2 MG PO (20:24)
[2017-04-15] MEDS: ONDANSETRON 4MG/2ML VIAL (J2405) IV (23:30)
[2017-04-16] MEDS: IPRATROPIUM 0.5MG/ALBUTEROL 2.5MG INH SOL UD 3ML (DUONEB)(J7620) NEB ×2 (01:35→08:06)
[2017-04-16] MEDS: KCL 20MEQ IN 0.45NS 1000ML 1,000 ML IV (05:12)
[2017-04-16] MEDS: metroNIDAZOLE 500 MG in APPROPRIATE DILUENT 1 EA IV (05:12)
[2017-04-16 07:56] LABS: HEMOGLOBIN 11.4 g/dl (12.0-16.0); MEAN CORPUSCULAR HEMOGLOBIN 28.3 pg (27.0-33.0); MEAN CORPUSCULAR HGB CONC 31.7 g/dl (32.0-36.5); MEAN CORPUSCULAR VOLUME 89.3 fl (80.0-96.0); PLATELET COUNT, AUTOMATED 400 10^3/uL (150-450); RED BLOOD COUNT 4.03 10^6/uL (4.00-5.40); WHITE BLOOD COUNT 9.3 10^3/uL (4.0-10.0)
[2017-04-16] MEDS: BUDESONIDE 0.5 MG/2 ML INHALATION SUSPENSION INH (08:06)
[2017-04-16 08:39] LABS: ANION GAP 5 MEQ/L (8-16); BLOOD UREA NITROGEN 8 MG/DL (7-18); CALCIUM LEVEL 8.7 MG/DL (8.5-10.1); CARBON DIOXIDE LEVEL 26 MEQ/L (21-32); CHLORIDE LEVEL 109 MEQ/L (98-107); CREATININE FOR GFR 0.69 MG/DL (0.55-1.30); GLOMERULAR FILTRATION RATE > 60.0 (>58); GLUCOSE, FASTING 99 MG/DL (70-100); POTASSIUM SERUM 4.7 MEQ/L (3.5-5.1); SODIUM LEVEL 140 MEQ/L (136-145)
[2017-04-16] MEDS: ESCITALOPRAM OXALATE 10 MG TAB (LEXAPRO) PO (08:56)
[2017-04-16] MEDS: PANTOPRAZOLE 40MG INJ (PROTONIX) (C9113) IV (08:56)
[2017-04-16] MEDS: ENOXAPARIN 40 MG/0.4 ML SYRINGE (J1650) SC ×2 (08:56→09:00)
[2017-04-16] MEDS: ADDERALL 5 MG TAB PO (08:56)
[2017-04-16] MEDS: SPIRONOLACTONE 25 MG TAB PO (08:56)
[2017-04-16] MEDS: clonazePAM 1 MG TAB PO (08:57)
[2017-04-16] MEDS: MAGNESIUM OXIDE 400 MG TAB (MAG-OX) PO (08:57)
[2017-04-16] MEDS: cefTAZidime 2 GM in D5W MINI-BAG PLUS 50 ML IV (08:57)
[2017-04-16] MEDS: GABAPENTIN 300 MG CAP PO (08:57)
[2017-04-16] MEDS: guaiFENesin ER 600 MG TAB PO (08:57)
[2017-04-16] MEDS: POTASSIUM CHLORIDE 10 MEQ SR TABLET PO (08:57)
== END 2017-04-16 11:10 | disposition home or self-care (01) | DRG 244 ==
LOC: M MS5PR 12:48
DX: K57.32 Diverticulitis of large intestine without perforation or abscess without bleeding (principal); F31.9 Bipolar disorder, unspecified; J45.909 Unspecified asthma, uncomplicated; K58.9 Irritable bowel syndrome, unspecified; K21.9 Gastro-esophageal reflux disease without esophagitis; I25.2 Old myocardial infarction; F17.210 Nicotine dependence, cigarettes, uncomplicated; M79.7 Fibromyalgia; Z79.82 Long term (current) use of aspirin; Z79.899 Other long term (current) drug therapy; Z88.0 Allergy status to penicillin; Z88.1 Allergy status to other antibiotic agents; Z91.013 Allergy to seafood; Z88.8 Allergy status to other drugs, medicaments and biological substances; Z88.5 Allergy status to narcotic agent; Z95.5 Presence of coronary angioplasty implant and graft

== ENCOUNTER 2017-04-21 22:26 | Emergency (ER) | payer OTHER ==
[2017-04-21] MEDS ORDERED: ISOVUE-370 76% 100ML VIAL (Q9967) As Ordered (22:49)
[2017-04-21] MEDS: diphenhydrAMINE INJ 50MG/ML VIAL (J1200) IV (23:11)
[2017-04-21] MEDS: dexameTHASONE 20 MG/5 ML VIAL (J1100) IV (23:11)
[2017-04-21 23:17] LABS: BASO # 0.1 10^3/uL (0.0-0.2); BASO % 0.4 % (0.0-1.0); EOS # 0.2 10^3/uL (0.0-0.50); HEMATOCRIT 37.9 % (36.0-47.0); HEMOGLOBIN 12.7 g/dl (12.0-16.0); IMMATURE GRANULOCYTE % 0.5 % (0-3.0); LYMPH # 3.3 10^3/uL (1.5-4.5); LYMPH % 17.1 % (24.0-44.0); MEAN CORPUSCULAR HEMOGLOBIN 28.3 pg (27.0-33.0); MEAN CORPUSCULAR HGB CONC 33.5 g/dl (32.0-36.5); MEAN CORPUSCULAR VOLUME 84.6 fl (80.0-96.0); MONO # 1.8 10^3/uL (0.0-0.8); MONO % 9.2 % (0.0-5.0); NEUTROPHILS % 71.8 % (36.0-66.0); PLATELET COUNT, AUTOMATED 404 10^3/uL (150-450); RED BLOOD COUNT 4.48 10^6/uL (4.00-5.40); RED CELL DISTRIBUTION WIDTH 17.1 % (11.5-14.5); WHITE BLOOD COUNT 19.5 10^3/uL (4.0-10.0)
[2017-04-21 23:32] LABS: INR 1.05; PROTHROMBIN TIME 13.8 SECONDS (12.4-14.5)
[2017-04-21 23:33] LABS: PARTIAL THROMBOPLASTIN TIME 27.7 SECONDS (26.8-37.9)
[2017-04-21 23:39] LABS: ALBUMIN/GLOBULIN RATIO 0.71 (1.00-1.93); ALKALINE PHOSPHATASE 207 U/L (45-117); ALT/SGPT 26 U/L (12-78); ANION GAP 9 MEQ/L (8-16); AST/SGOT 43 U/L (7-37); BILIRUBIN,DIRECT 0.1 MG/DL (0.0-0.2); BILIRUBIN,TOTAL 0.5 MG/DL (0.2-1.0); BLOOD UREA NITROGEN 4 MG/DL (7-18); CARBON DIOXIDE LEVEL 30 MEQ/L (21-32); CHLORIDE LEVEL 100 MEQ/L (98-107); CREATININE FOR GFR 0.75 MG/DL (0.55-1.30); GLOMERULAR FILTRATION RATE > 60.0 (>58); GLUCOSE, FASTING 101 MG/DL (70-100); POTASSIUM SERUM 3.2 MEQ/L (3.5-5.1); SODIUM LEVEL 139 MEQ/L (136-145); TOTAL PROTEIN 7.2 GM/DL (6.4-8.2)
[2017-04-21 23:58] LABS: ETHYL ALCOHOL (ETHANOL) < 0.003 % (0.000-0.010)
[2017-04-22] MEDS: MORPHINE 2 MG/ML 1ML SYRINGE (J2270) IV (01:02)
== END 2017-04-22 01:22 | disposition home or self-care (01) ==
LOC: M ED 22:26
DX: S20.211A Contusion of right front wall of thorax, initial encounter (principal); S60.221A Contusion of right hand, initial encounter; V49.88XA Car occupant (driver) (passenger) injured in other specified transport accidents, initial encounter; Y92.410 Unspecified street and highway as the place of occurrence of the external cause; I25.10 Atherosclerotic heart disease of native coronary artery without angina pectoris; J45.909 Unspecified asthma, uncomplicated; F41.9 Anxiety disorder, unspecified; F32.9 Major depressive disorder, single episode, unspecified; K21.9 Gastro-esophageal reflux disease without esophagitis; M54.9 Dorsalgia, unspecified; G89.29 Other chronic pain; F17.200 Nicotine dependence, unspecified, uncomplicated; Z91.041 Radiographic dye allergy status; Z91.013 Allergy to seafood; Z88.8 Allergy status to other drugs, medicaments and biological substances; Z79.899 Other long term (current) drug therapy; Z79.82 Long term (current) use of aspirin
CPT/HCPCS: J1200

== ENCOUNTER → 2017-04-24 | Outpatient (REF) | payer OTHER ==
[2017-04-24 18:03] LABS: HEMATOCRIT 39.3 % (36.0-47.0); HEMOGLOBIN 12.7 g/dl (12.0-16.0); MEAN CORPUSCULAR HEMOGLOBIN 28.7 pg (27.0-33.0); MEAN CORPUSCULAR HGB CONC 32.3 g/dl (32.0-36.5); MEAN CORPUSCULAR VOLUME 88.9 fl (80.0-96.0); PLATELET COUNT, AUTOMATED 423 10^3/uL (150-450); RED BLOOD COUNT 4.42 10^6/uL (4.00-5.40); RED CELL DISTRIBUTION WIDTH 18.1 % (11.5-14.5)
[2017-04-24 18:15] LABS: WHITE BLOOD COUNT 17.7 10^3/uL (4.0-10.0)
[2017-04-24 18:16] LABS: ADD MANUAL DIFFER YES; DIFF SLIDE NUMBER 257; POSITIVE DIFF POS FLAG
[2017-04-24 19:23] LABS: ANION GAP 9 MEQ/L (8-16); BLOOD UREA NITROGEN 8 MG/DL (7-18); CALCIUM LEVEL 8.8 MG/DL (8.5-10.1); CARBON DIOXIDE LEVEL 30 MEQ/L (21-32); CHLORIDE LEVEL 102 MEQ/L (98-107); GLOMERULAR FILTRATION RATE > 60.0 (>58); GLUCOSE, FASTING 108 MG/DL (70-100); POTASSIUM SERUM 3.5 MEQ/L (3.5-5.1); SODIUM LEVEL 141 MEQ/L (136-145)
[2017-04-24 19:43] LABS: ANISOCYTOSIS 1+; BASOPHILS 1 % (0-4); LYMPHOCYTES 35 % (16-52); MONOCYTES 8 % (0-8); NEUTROPHILS 56 % (35-75); PLATELET ESTIMATE NORMAL (NORMAL)
== END ==
LOC: M SFHCCLAY 12:38
DX: K57.92 Diverticulitis of intestine, part unspecified, without perforation or abscess without bleeding (principal)

== ENCOUNTER → 2017-08-01 | Outpatient (CLI) | payer OTHER | LOC: M RAD 14:32 | DX: J32.4 Chronic pansinusitis (principal); J34.2 Deviated nasal septum | CPT/HCPCS: 70486 ==

== ENCOUNTER → 2017-08-29 | Outpatient (REF) | payer OTHER ==
[2017-08-29 18:49] LABS: BASO % 0.1 % (0.0-1.0); EOS % 0.1 % (0.0-3.0); HEMATOCRIT 38.2 % (36.0-47.0); HEMOGLOBIN 12.4 g/dl (12.0-15.5); IMMATURE GRANULOCYTE % 0.9 % (0-3.0); LYMPH # 1.2 10^3/uL (1.5-4.5); LYMPH % 6.8 % (24.0-44.0); MEAN CORPUSCULAR HEMOGLOBIN 27.8 pg (27.0-33.0); MEAN CORPUSCULAR HGB CONC 32.5 g/dl (32.0-36.5); MEAN CORPUSCULAR VOLUME 85.7 fl (80.0-96.0); MONO # 0.4 10^3/uL (0.0-0.8); MONO % 2.3 % (0.0-5.0); NEUTROPHILS # 16.2 10^3/uL (1.8-7.7); NEUTROPHILS % 89.8 % (36.0-66.0); PLATELET COUNT, AUTOMATED 455 10^3/uL (150-450); RED BLOOD COUNT 4.46 10^6/uL (4.00-5.40); RED CELL DISTRIBUTION WIDTH 17.9 % (11.5-14.5)
[2017-08-29 19:12] LABS: RHEUMATOID FACTOR QUANT < 10.0 IU/ML (<15.0)
[2017-08-29 19:26] LABS: ERYTHROCYTE SEDIMENTATION RATE 61 mm/hr (0-20)
[2017-09-01 00:12] LABS: ANTINUCLEAR ANTIBODIES DIRECT Negative (Negative); Lyme Disease IgG/IgM Antibodie <0.91 ISR (0.00-0.90); Lyme Disease IgM Ab Quantitati <0.80 index (0.00-0.79)
== END ==
LOC: M LABDRAW1 14:41
DX: M25.561 Pain in right knee (principal)

== ENCOUNTER → 2017-09-18 | Outpatient (CLI) | payer OTHER | LOC: M RAD 13:01 | DX: J37.0 Chronic laryngitis (principal); J38.3 Other diseases of vocal cords; J34.2 Deviated nasal septum; J34.1 Cyst and mucocele of nose and nasal sinus | CPT/HCPCS: 70490 ==

== ENCOUNTER 2017-10-04 09:56 | Day surgery (SDC) | payer OTHER ==
[2017-10-04] MEDS ORDERED: LIDOCAINE 1% MDV 20ML VIAL SQ (10:00)
[2017-10-04] MEDS: LR 1,000 ML IV (10:47)
[2017-10-04] MEDS ORDERED: SCOPOLAMINE 1MG TRANSDERMAL PATCH As Ordered (11:10)
[2017-10-04] MEDS ORDERED: SCOPOLAMINE 1MG TRANSDERMAL PATCH TOP (11:15)
[2017-10-04] MEDS: dexameTHASONE 4 MG/ML 1ML VIAL (J1100) IV (12:45)
[2017-10-04] MEDS ORDERED: MIDAZOLAM INJ 2 MG/2 ML VIAL (J2250) As Ordered (12:54)
[2017-10-04] MEDS ORDERED: LIDOCAINE 2% INJ 100 MG/5 ML SDV (FOR ANES.) As Ordered (12:54)
[2017-10-04] MEDS ORDERED: ROCURONIUM BROMIDE 50 MG/5 ML VIAL As Ordered (12:54)
[2017-10-04] MEDS ORDERED: fentaNYL 100 MCG/2 ML INJECTION (J3010) As Ordered (12:54)
[2017-10-04] MEDS ORDERED: PROPOFOL 200 MG/20 ML VIAL As Ordered (12:54)
[2017-10-04] MEDS: LIDOCAINE W/EPINEPHRINE 1% 20ML VIAL As Ordered (12:56)
[2017-10-04] MEDS: OXYMETAZOLINE NASAL SPRAY (AFRIN) As Ordered (13:02)
[2017-10-04] MEDS ORDERED: ONDANSETRON 4MG/2ML VIAL (J2405) As Ordered ×2 (13:02→13:24)
[2017-10-04] MEDS: METHYLENE BLUE 0.5% (5MG/ML) 10 ML AMP (PROVAYBLUE)(Q9968 PER 1MG) As Ordered (13:02)
[2017-10-04] MEDS ORDERED: SUGAMMADEX SODIUM 500 MG/5 ML VIAL (BRIDION) As Ordered (13:03)
[2017-10-04] MEDS: ONDANSETRON 4MG/2ML VIAL (J2405) IV (13:25)
[2017-10-04] MEDS ORDERED: fentaNYL 100 MCG/2 ML INJECTION (J3010) IV (14:00)
[2017-10-04] MEDS ORDERED: LR 1,000 ML IV ×2 (14:00)
[2017-10-04] MEDS ORDERED: METOCLOPRAMIDE INJ 10MG/2ML VIAL (J2765) IV (14:00)
[2017-10-04] MEDS: PERCOCET 5MG/325MG TAB PO (14:18)
[2017-10-04] MEDS ORDERED: IBUPROFEN 100 MG/5 ML SUSP UDC DYE FREE PO (17:30)
[2017-10-04] MEDS: CEPACOL LOZENGE PO (18:00)
== END 2017-10-04 18:30 | disposition home or self-care (01) ==
LOC: M SDC 09:56
DX: J38.3 Other diseases of vocal cords (principal); I25.2 Old myocardial infarction; J45.909 Unspecified asthma, uncomplicated; E78.4 Other hyperlipidemia; E78.00 Pure hypercholesterolemia, unspecified; G47.30 Sleep apnea, unspecified; K21.9 Gastro-esophageal reflux disease without esophagitis; F17.210 Nicotine dependence, cigarettes, uncomplicated; E03.9 Hypothyroidism, unspecified; Z79.899 Other long term (current) drug therapy; Z91.013 Allergy to seafood; Z88.8 Allergy status to other drugs, medicaments and biological substances
CPT/HCPCS: 31536

== ENCOUNTER → 2017-12-11 | Outpatient (REF) | payer OTHER ==
[2017-12-11 13:46] LABS: APPEARANCE, URINE HAZY (CLEAR); BACTERIA, URINE AUTO NEGATIVE (NEGATIVE); BILIRUBIN, URINE AUTO NEGATIVE (NEGATIVE); BLOOD, URINE BLOOD NEGATIVE (NEGATIVE); CALCIUM OXALATE CRYSTALS LARGE; COLOR, URINE YELLOW (YELLOW); GLUCOSE, URINE (UA) AUTO NEGATIVE (NEGATIVE); KETONE, URINE AUTO NEGATIVE (NEGATIVE); LEUKOCYTE ESTERASE, URINE AUTO NEGATIVE (NEGATIVE); MUCUS, URINE SMALL (NEGATIVE); NITRITE, URINE AUTO NEGATIVE (NEGATIVE); PROTEIN, URINE AUTO NEGATIVE (NEGATIVE); RBC, URINE AUTO 0 /HPF (0-3); SPECIFIC GRAVITY URINE AUTO 1.018 (1.002-1.035); SQUAMOUS EPITHELIAL CELL UR AU 0 /HPF (0-6); UROBILINOGEN, URINE AUTO 0.2 mg/dL (0.0-2.0); WBC, URINE AUTO 0 /HPF (0-3)
== END ==
LOC: M SMT 13:13
DX: R32 Unspecified urinary incontinence (principal)

== ENCOUNTER → 2018-01-11 | Outpatient (REF) | payer OTHER | LOC: M SFHCCLAY 12:40 | DX: L02.01 Cutaneous abscess of face (principal); L01.00 Impetigo, unspecified ==

== ENCOUNTER → 2018-02-06 | Outpatient (REF) | payer OTHER | LOC: M SFHCCLAY 16:58 | DX: L08.9 Local infection of the skin and subcutaneous tissue, unspecified (principal) | CPT/HCPCS: 87077 ==

== ENCOUNTER 2018-03-14 16:38 | Emergency (ER) | payer OTHER ==
[~2018-03-14] VITALS: Ht 162.6 cm; Wt 115.0 kg
[~2018-03-14 16:38] MED LIST changes: -ACETAMINOPHEN TAB 650MG DOSE (2X325MG) PO; +ADDE1TAB14 PO; -ALBUTEROL SULFATE 2.5 MG/0.5 ML INH NEB SOLN NEB; +ASPI1TAB PO; +ASPI81TA85 PO; +ATOR40TA75 PO; +BREO1INH INH; +CEFD300CAP FT; +CIPR500T3 PO; +CLON1TAB8; +CLON1TAB8 PO; +DOXY100T16; +DOXY100T16 PO; +ESCI20TA; +ESCI20TA PO; +FURO80TA2 PO; +GABA600T4 PO; +HYDR-643 PO; +IPRA0.00 NEB; +KLON2TAB PO; +KLOR10TA76 PO; +KLOR1TAB69 PO; +LAMI25TA PO; +LEXA1TAB2 PO; +LINZ290C PO; +LIPI20TA PO; +MAG400TA; +MAGN400T5 PO; +MELO15TA28 PO; +METH1CAP4 PO; +METR-201 PO; +MOBI15TA PO; +NEXI40CA PO; +NICO21DI34 TD; +NITR0.4D6 TD; -NITROGLYCERIN 0.4 MG SUBL TABLET SL; +NYST50SS PO; +OMEP40CA2; +OMEP40CA2 PO; +PRED20TA PO; +PROAAER10 INH; +QUET1TAB8 PO; +REXU1TAB3 PO; +REXU1TAB4; +REXU1TAB4 PO; +RITA10TA; +ROBA750T4 PO; +SING10TA32 PO; +SPIR-10 PO; +TIZA2TA PO; +TRAM50TA2 PO; +TRAZ1TAB14; +TRAZ1TAB14 PO; +VENTAER INH; +VOLT1GEL15 TD
[2018-03-14] MEDS ORDERED: PENT10CA (16:51)
[2018-03-14] MEDS ORDERED: QUET1TAB7 (16:51)
[2018-03-14] MEDS ORDERED: TORS100T (16:51)
[2018-03-14] MEDS ORDERED: NS 1,000 ML IV ONE (19:00)
--- NOTE | 2018-03-14 19:52 | REP ---
HISTORY: Hypoxia. COMPARISON: Multiple, the latest 04/13/2017. FINDINGS: The superior mediastinal structures are midline. The cardiac silhouette is unremarkable in size, shape and position. The diaphragmatic surfaces of the lungs are regular and the costophrenic angles are clear. The pulmonary gilman are clear. The imaged osseous structures are intact. IMPRESSION: There is no acute cardiopulmonary disease. No significant change from the prior exam. Electronically Signed by Emery Velarde DO 03/15/2018 04:54 P
[2018-03-14 20:03] LABS: BASO % 0.3 % (0.0-1.0); EOS # 0.2 10^3/uL (0.0-0.50); EOS % 1.9 % (0.0-3.0); HEMATOCRIT 38.1 % (36.0-47.0); HEMOGLOBIN 12.4 g/dl (12.0-15.5); LYMPH # 2.8 10^3/uL (1.5-4.5); LYMPH % 22.6 % (24.0-44.0); MEAN CORPUSCULAR HEMOGLOBIN 28.9 pg (27.0-33.0); MEAN CORPUSCULAR HGB CONC 32.5 g/dl (32.0-36.5); MEAN CORPUSCULAR VOLUME 88.8 fl (80.0-96.0); MONO # 0.9 10^3/uL (0.0-0.8); MONO % 6.9 % (0.0-5.0); NEUTROPHILS # 8.5 10^3/uL (1.8-7.7); NEUTROPHILS % 67.9 % (36.0-66.0); RED BLOOD COUNT 4.29 10^6/uL (4.00-5.40); WHITE BLOOD COUNT 12.5 10^3/uL (4.0-10.0)
--- NOTE | 2018-03-14 20:04 | REPVR ---
EXAM: CT Head Without Contrast EXAM DATE/TIME: 03/14/2018 7:02 PM CLINICAL HISTORY: 42 years old, female; Signs and symptoms; Dizziness and weakness, extremity; Right; Additional info: C/O dizzines and right sided weakness TECHNIQUE: Axial computed tomography images of the head/brain without contrast. All CT scans at this facility use at least one of these dose optimization techniques: automated exposure control; mA and/or kV adjustment per patient size (includes targeted exams where dose is matched to clinical indication); or iterative reconstruction. COMPARISON: No relevant prior studies available. FINDINGS: Brain: Normal. No hemorrhage. No significant white matter disease. No edema. Ventricles: Normal. No ventriculomegaly. Bones/joints: Normal. No acute fracture. Sinuses: Normal as visualized. No acute sinusitis. Mastoid air cells: No significant mastoid effusions. Soft tissues: Normal. IMPRESSION: No acute intracranial abnormality seen. Electronically signed by: Frances Kramer On 03/14/2018 20:03:54 PM
[2018-03-14 20:17] LABS: INR 0.99; PROTHROMBIN TIME 13.2 SECONDS (12.1-14.4)
[2018-03-14 20:18] LABS: PARTIAL THROMBOPLASTIN TIME 25.8 SECONDS (25.4-37.6)
[2018-03-14 20:28] LABS: AMPHETAMINES LEVEL URINE NEGATIVE (NEGATIVE); BARBITURATES URINE NEGATIVE (NEGATIVE); BENZODIAZEPINES URINE NEGATIVE (NEGATIVE); CANNABINOIDS URINE POSITIVE (NEGATIVE); COCAINE METABOLITE URINE NEGATIVE (NEGATIVE); METHADONE URINE NEGATIVE (NEGATIVE); OPIATES URINE NEGATIVE (NEGATIVE); PHENCYCLIDINE URINE NEGATIVE (NEGATIVE)
[2018-03-14 20:28] LABS: BLOOD UREA NITROGEN 4 MG/DL (7-18); CALCIUM LEVEL 8.8 MG/DL (8.5-10.1); CARBON DIOXIDE LEVEL 35 MEQ/L (21-32); CHLORIDE LEVEL 95 MEQ/L (98-107); CPK CREATINE PHOSPHOKINASE 61 U/L (26-192); CREATININE FOR GFR 0.57 MG/DL (0.55-1.30); FREE T4 1.33 NG/DL (0.76-1.46); GLOMERULAR FILTRATION RATE > 60.0 (>58); GLUCOSE, FASTING 88 MG/DL (70-100); MAGNESIUM LEVEL 1.9 MG/DL (1.8-2.4); POTASSIUM SERUM 3.3 MEQ/L (3.5-5.1); SODIUM LEVEL 137 MEQ/L (136-145); TROPONIN I < 0.02 NG/ML (< 0.10)
[2018-03-14] MEDS ORDERED: POTASSIUM CHLORIDE 10 MEQ SR TABLET PO ONE (21:15)
[2018-03-14 22:09] LABS: VENOUS BASE EXCESS 7.1 (-2.0-2.0); VENOUS HCO3 33.7 MEQ/L (23.0-27.0); VENOUS O2 SATURATION 65.9 % (60.0-80.0); VENOUS PARTIAL PRESSURE CO2 57.1 mmHg (38.0-50.0); VENOUS PARTIAL PRESSURE O2 34.5 mmHg (30.0-50.0); VENOUS PH 7.389 UNITS (7.330-7.430); VENOUS STANDARD HCO3 30.2 MEQ/L; VENOUS TOTAL CO2 35.5 MEQ/L (24.0-28.0)
[2018-03-14 22:32] VITALS: BP 112/60
== END 2018-03-14 22:48 | disposition home or self-care (01) ==
LOC: M ED 16:38
DX: M79.604 Pain in right leg (principal); M79.605 Pain in left leg; E87.6 Hypokalemia; I25.2 Old myocardial infarction; E78.5 Hyperlipidemia, unspecified; G47.30 Sleep apnea, unspecified; N80.9 Endometriosis, unspecified; E03.9 Hypothyroidism, unspecified; M79.7 Fibromyalgia; K25.9 Gastric ulcer, unspecified as acute or chronic, without hemorrhage or perforation; G89.29 Other chronic pain; M54.5 Low back pain; F31.9 Bipolar disorder, unspecified; F41.9 Anxiety disorder, unspecified; F32.9 Major depressive disorder, single episode, unspecified; Z95.5 Presence of coronary angioplasty implant and graft; Z87.891 Personal history of nicotine dependence; Z79.82 Long term (current) use of aspirin; Z79.899 Other long term (current) drug therapy; Z88.0 Allergy status to penicillin; Z88.5 Allergy status to narcotic agent; Z88.8 Allergy status to other drugs, medicaments and biological substances; Z91.041 Radiographic dye allergy status; Z91.013 Allergy to seafood

== ENCOUNTER → 2018-03-19 | Outpatient (CLI) | payer OTHER ==
[~2018-03-19] MED LIST changes: +PENT10CA; +QUET1TAB7; +TORS100T
--- NOTE | 2018-03-20 02:38 | REP ---
Clinical: Lumbago with sciatica Technique: AP, lateral, bilateral oblique and coned-down views of the lumbosacral spine. Findings: Alignment and lordosis maintained. No acute fracture / compression injury or subluxation. Advanced spondylosis noted at L5-S1 including endplate sclerosis, osteophytosis, disc space narrowing and hypertrophic facet changes. Remainder of the examination demonstrates mild age-related type change. Impression: Focal advanced degenerative changes at L5-S1.
--- NOTE | 2018-03-20 02:46 | REP ---
Clinical: Right hip pain. Technique: Single AP view of the pelvis. Findings: No acute fracture or dislocation. Skeletal structures, joint spaces, and surrounding soft tissues are symmetric and normal for age. Surgical clips noted in the pelvis. Impression: Normal pelvic radiograph.
--- NOTE | 2018-03-20 02:56 | REP ---
Clinical: Nontraumatic hip pain. Technique: Neutral and frog lateral views of the right hip. Findings: Osseous structures and joint spaces are intact and normal for age. No significant degenerative or congenital abnormalities are appreciated. Surrounding soft tissues are unremarkable. No acute fracture or dislocation. Impression: Essentially age-appropriate right hip radiographs.
== END ==
LOC: M CLY 14:45
PROVIDERS: ATTEND Family Medicine
DX: M51.37 Other intervertebral disc degeneration, lumbosacral region (principal); M25.551 Pain in right hip; M54.41 Lumbago with sciatica, right side; M79.604 Pain in right leg; R60.9 Edema, unspecified

== ENCOUNTER → 2018-03-19 | Outpatient (REF) | payer OTHER ==
[2018-03-20 12:57] LABS: BLOOD UREA NITROGEN 6 MG/DL (7-18); CALCIUM LEVEL 8.5 MG/DL (8.5-10.1); CARBON DIOXIDE LEVEL 35 MEQ/L (21-32); CHLORIDE LEVEL 90 MEQ/L (98-107); CREATININE FOR GFR 0.67 MG/DL (0.55-1.30); GLOMERULAR FILTRATION RATE > 60.0 (>58); GLUCOSE, FASTING 98 MG/DL (70-100); POTASSIUM SERUM 2.7 MEQ/L (3.5-5.1); SODIUM LEVEL 134 MEQ/L (136-145); URIC ACID 5.7 MG/DL (2.6-6.0)
== END ==
LOC: M SFHCCLAY 14:23
PROVIDERS: ATTEND Family Medicine
DX: L08.9 Local infection of the skin and subcutaneous tissue, unspecified (principal)

== ENCOUNTER → 2018-04-10 | Outpatient (REF) | payer OTHER ==
[~2018-04-10] MED LIST changes: +DICY1CAP8 PO; +DOXY100T PO; +HYDR-3363 PO; +LAMO100T PO; +MYRB50TA PO; +ONDA4TAB5 PO; +OXYB10TA PO; -PENT10CA; +PENT10CA PO; +RANI150T PO; -TORS100T; +TORS100T PO
== END ==
LOC: M SFHCCLAY 14:11
PROVIDERS: ATTEND Family Medicine
DX: R50.9 Fever, unspecified (principal); B95.8 Unspecified staphylococcus as the cause of diseases classified elsewhere; L08.9 Local infection of the skin and subcutaneous tissue, unspecified

== ENCOUNTER 2018-04-12 11:51 | Observation (INO) | payer OTHER ==
[~2018-04-12] VITALS: Ht 162.6 cm; Wt 90.9 kg
[~2018-04-12 11:51] MED LIST changes: -DICY1CAP8 PO; -DOXY100T PO; -HYDR-3363 PO; -LAMO100T PO; -MYRB50TA PO; -ONDA4TAB5 PO; -OXYB10TA PO; -RANI150T PO
[2018-04-12] MEDS: ASPIRIN 81 MG CHEW TABLET PO ONE ×2 (12:15→13:22)
[2018-04-12 12:29] LABS: BASO % 0.3 % (0.0-1.0); EOS % 0.2 % (0.0-3.0); HEMATOCRIT 38.2 % (36.0-47.0); LYMPH % 15.3 % (24.0-44.0); MEAN CORPUSCULAR HEMOGLOBIN 29.1 pg (27.0-33.0); MEAN CORPUSCULAR VOLUME 85.7 fl (80.0-96.0); MONO # 0.8 10^3/uL (0.0-0.8); MONO % 5.7 % (0.0-5.0); NEUTROPHILS # 10.3 10^3/uL (1.8-7.7); PLATELET COUNT, AUTOMATED 361 10^3/uL (150-450); RED BLOOD COUNT 4.46 10^6/uL (4.00-5.40); WHITE BLOOD COUNT 13.2 10^3/uL (4.0-10.0)
[2018-04-12] MEDS ORDERED: LIDOCAINE 2% 5ML JELLY UROJET TOP ONE (12:30)
[2018-04-12 12:41] LABS: INR 0.99; PROTHROMBIN TIME 13.2 SECONDS (12.1-14.4)
[2018-04-12 12:42] LABS: PARTIAL THROMBOPLASTIN TIME 25.5 SECONDS (25.4-37.6)
--- NOTE | 2018-04-12 12:43 | REP ---
Clinical: Altered mental status . Comparison: 03/14/2018 . Findings: The ventricles, sulci, and cisterns are normal in position and appearance. Ulrich-white differentiation is maintained. No acute intracranial hemorrhage, mass/mass effect, pathology or trauma/injury. No evidence for acute infarction. No extra-axial fluid collection. Calvarium is intact. Paranasal sinuses and mastoid air cells are clear. Impression: Normal noncontrast head CT. No evidence for acute intracranial pathology or trauma/injury. Electronically Signed by Escobar Haddad MD 04/12/2018 12:34 P
[2018-04-12 12:44] LABS: D-DIMER QUANT 525.2 ng/ml (<500)
[2018-04-12 13:04] LABS: ALBUMIN 2.8 GM/DL (3.2-5.2); ALT/SGPT 16 U/L (12-78); BILIRUBIN,DIRECT 0.1 MG/DL (0.0-0.2); BILIRUBIN,TOTAL 0.5 MG/DL (0.2-1.0); BLOOD UREA NITROGEN 9 MG/DL (7-18); CALCIUM LEVEL 9.6 MG/DL (8.5-10.1); CARBON DIOXIDE LEVEL 24 MEQ/L (21-32); CHLORIDE LEVEL 102 MEQ/L (98-107); CPK CREATINE PHOSPHOKINASE 67 U/L (26-192); CREATININE FOR GFR 0.92 MG/DL (0.55-1.30); GLOMERULAR FILTRATION RATE > 60.0 (>58); GLUCOSE, FASTING 95 MG/DL (70-100); LIPASE 88 U/L (73-393); MAGNESIUM LEVEL 1.8 MG/DL (1.8-2.4); MB/CK RELATIVE INDEX 3.58 (< OR =4); PHOSPHORUS LEVEL 2.3 MG/DL (2.5-4.9); POTASSIUM SERUM 3.7 MEQ/L (3.5-5.1); SODIUM LEVEL 138 MEQ/L (136-145); TOTAL PROTEIN 6.6 GM/DL (6.4-8.2); TROPONIN I < 0.02 NG/ML (< 0.10)
--- NOTE | 2018-04-12 13:14 | REP ---
Clinical: Acute chest pain. Technique: AP and lateral. Comparison: 03/14/2018. Findings: Mediastinum and cardiac silhouette are within normal limits and stable. Lung gilman are clear. No focal consolidation, effusion, or pneumothorax. Skeletal structures are intact. Impression: Stable chest x-ray. No acute cardiopulmonary process appreciated. Electronically Signed by Escobar Haddad MD 04/12/2018 01:05 P
--- NOTE | 2018-04-12 13:29 | REP ---
Clinical: Lower extremity pain . Technique: Ulrich scale and color Doppler evaluation using linear high frequency transducer. Findings: Ultrasound examination of the right lower extremity deep venous structures from the common femoral vein to the popliteal vein demonstrates normal compressibility flow and wave patterns in response to respiration and augmentation. There is no evidence for deep venous thrombosis. Impression: No evidence for deep venous thrombosis. Electronically Signed by Escobar Haddad MD 04/12/2018 01:20 P
[2018-04-12 13:31] LABS: AMPHETAMINES LEVEL URINE NEGATIVE (NEGATIVE); BARBITURATES URINE NEGATIVE (NEGATIVE); BENZODIAZEPINES URINE NEGATIVE (NEGATIVE); CANNABINOIDS URINE POSITIVE (NEGATIVE); COCAINE METABOLITE URINE NEGATIVE (NEGATIVE); METHADONE URINE NEGATIVE (NEGATIVE); OPIATES URINE NEGATIVE (NEGATIVE); PHENCYCLIDINE URINE NEGATIVE (NEGATIVE)
[2018-04-12] MEDS ORDERED: diphenhydrAMINE INJ 50MG/ML VIAL (J1200) IV ONE (13:45)
[2018-04-12] MEDS ORDERED: methylPREDNISolone INJ 125 MG/2 ML VIAL (J2930) IV ONE (13:45)
[2018-04-12] MEDS ORDERED: ISOVUE-370 76% 100ML VIAL (Q9967) As Ordered ONE (14:23)
--- NOTE | 2018-04-12 15:01 | REP ---
Clinical: Acute chest pain. Technique: Axial contrast enhanced images from the thoracic inlet to the upper abdomen using 100 ml Isovue 370 intravenous contrast material with coronal and sagittal re-formations. Findings: Satisfactory enhancement of the pulmonary vasculature is achieved and no filling defects are identified to suggest pulmonary embolus. Thoracic aorta is normal caliber without aneurysm or dissection. Heart and pericardium are normal. Bilateral lung gilman are well aerated and clear without acute pulmonary parenchymal consolidation or atelectasis. No nodule or mass lesion. No pleural effusion/reaction. No pneumothorax. No adenopathy. Impression: No evidence for pulmonary embolus. No acute pleuroparenchymal or mediastinal process. Electronically Signed by Escobar Haddad MD 04/12/2018 02:52 P
[2018-04-12] MEDS ORDERED: ONDANSETRON 4MG/2ML VIAL (J2405) IV ONE (15:45)
[2018-04-12] MEDS ORDERED: MYRB50TA PO (16:15)
[2018-04-12] MEDS ORDERED: RANI150T PO (16:15)
[2018-04-12] MEDS ORDERED: DOXY100T PO (16:15)
[2018-04-12] MEDS ORDERED: LAMO100T PO (16:15)
[2018-04-12] MEDS ORDERED: ONDA4TAB5 PO (16:15)
[2018-04-12] MEDS ORDERED: OXYB10TA PO (16:15)
[2018-04-12] MEDS ORDERED: HYDR-3363 PO (16:15)
[2018-04-12] MEDS ORDERED: DICY1CAP8 PO (16:15)
[2018-04-12] MEDS ORDERED: LINZ290C PO (16:15)
[2018-04-12] MEDS ORDERED: ONDANSETRON 4 MG TAB (S0181) PO ONE (16:15)
[2018-04-12] MEDS ORDERED: TRAM50TA2 PO (16:15)
[2018-04-12] MEDS ORDERED: hydrOXYzine 25 MG TAB PO PRN (17:15)
[2018-04-12] MEDS ORDERED: ONDANSETRON 4 MG TAB (S0181) PO PRN (17:15)
[2018-04-12] MEDS ORDERED: ALBUTEROL 90 MCG/ACT 8GM HFA INHALER INH PRN (17:15)
[2018-04-12] MEDS ORDERED: traMADol 50 MG TAB PO PRN (17:15)
[2018-04-12 18:55] VITALS: BP 162/80
[2018-04-12] MEDS: tiZANidine 4 MG TAB PO SCH (20:54)
[2018-04-12] MEDS: DOXYCYCLINE HYCLATE 100 MG TAB PO SCH (20:55)
[2018-04-12] MEDS: GABAPENTIN 300 MG CAP PO SCH (20:55)
[2018-04-12] MEDS: oxyBUTYnin *DITROPAN XL* 5 MG TABCR PO SCH (20:55)
[2018-04-12] MEDS: OMEPRAZOLE 20 MG CAP PO SCH (20:55)
[2018-04-12] MEDS: lamoTRIgine 100MG TAB PO SCH (20:56)
[2018-04-12] MEDS: POTASSIUM CHLORIDE 10 MEQ SR TABLET PO SCH (20:56)
[2018-04-12] MEDS ORDERED: clonazePAM 1 MG TAB PO SCH (21:00)
[2018-04-12] MEDS ORDERED: FAMOTIDINE 20 MG TAB PO SCH (21:00)
[2018-04-12] MEDS ORDERED: ATORVASTATIN 20 MG TAB PO SCH (21:00)
[2018-04-12] MEDS ORDERED: QUEtiapine FUMARATE 100 MG TAB PO SCH (21:00)
[2018-04-12] MEDS ORDERED: MONTELUKAST 10 MG TAB PO SCH (21:00)
[2018-04-12] MEDS ORDERED: ASPIRIN 81 MG ENTERIC TAB PO SCH (21:00)
[2018-04-12] MEDS ORDERED: SPIRONOLACTONE 50 MG TAB PO SCH (21:00)
[2018-04-12] MEDS: PENTOSAN POLYSULFATE SODIUM 100 MG CAP (ELMIRON) PO SCH (21:00)
[2018-04-12] MEDS ORDERED: DICYCLOMINE 10 MG CAP PO SCH (21:00)
[2018-04-12] MEDS ORDERED: traZODone 50 MG TAB PO SCH (21:00)
--- NOTE | 2018-04-12 21:43 | HPE ---
DATE OF ADMISSION: 04/12/2018 42-year-old female with past medical history of anxiety disorder, depression, history of hypertension, hyperlipidemia, history of coronary artery disease status post stent placement in 2012, presents to the emergency room with chest pain, retrosternal and nonradiating, has been going on for the last 48 hours. She also has left leg pain that has been ongoing. In the emergency room, she had a 12-lead electrocardiogram (EKG), which showed normal sinus rhythm with no acute ST-T abnormalities and first troponin was negative. Ultrasound was done of the lower extremities; however, she refused the left leg due to pain, but the right leg showed no evidence of DVT. CT of the head showed no evidence of acute intracranial pathology or trauma. CT angio was also done in the emergency room and showed no evidence of pulmonary embolus. No pleural parenchymal or mediastinal process. Emergency room attending spoke with Dr. Holcomb who recommended MRI on admission due to the presence of anisocoria and possible ischemic stroke. PAST MEDICAL HISTORY: 1. Depression. 2. Anxiety. 3. Hypertension. 4. Hyperlipidemia. 5. Coronary artery disease, status post stent placement in 2012. 6. Asthma. ALLERGIES: She has drug allergies to CLINDAMYCIN, CODEINE, CONTRAST MEDIA, PROCHLORPERAZINE. FAMILY HISTORY: Negative for early coronary artery disease. SOCIAL HISTORY: The patient denies tobacco, alcohol or illicit drugs. MEDICATIONS: She takes at home: - albuterol two puffs inhaled every 4 hours as needed - Adderall 30 mg orally twice a day - aspirin 81 mg daily - atorvastatin 40 mg daily at bedtime - clonazepam 3 mg orally at bedtime - dicyclomine 10 mg orally at bedtime as needed - doxycycline 100 mg orally twice a day chronically for chronic skin staphylococcus infections - citalopram 30 mg orally daily - fluticasone one puff inhaled in the evening - gabapentin 600 mg orally three times a day - hydroxyzine 25 mg orally twice a day as needed - lamotrigine 800 mg orally twice a day - linaclotide 290 mcg orally daily - magnesium oxide 40 mg orally daily - mirabegron 50 mg orally daily - montelukast 10 mg orally at bedtime - omeprazole 40 mg orally twice a day - ondansetron 8 mg orally every 6 hours as needed - oxybutynin 10 mg orally twice a day - pentosan 100 mg orally three times a day - potassium chloride 30 mEq orally twice a day - Seroquel 100 mg orally at bedtime - ranitidine 150 mg two tablets orally at bedtime - spironolactone 50 mg orally at bedtime - tizanidine 40 mg orally three times a day as needed - torsemide 100 mg orally daily - tramadol 50 mg orally in the morning REVIEW OF SYSTEMS: Negative for all ten major systems except what is mentioned in the history of present illness. VITAL SIGNS: Blood pressure 135/68, heart rate is 60 and regular, respiratory rate is 16, temperature is 98.1, oxygen saturation is 95% on room air. Head is atraumatic, normocephalic. Neck is supple with no jugular venous distention (JVD). Lungs are clear to auscultation. S1, S2 audible. No murmurs appreciated. Abdomen is soft. Positive bowel sounds. 1+ pedal edema in the left leg. No pedal edema on the right. Neurologic examination, the patient is awake, alert and oriented times three. LABORATORIES: WBC 13.2, hemoglobin 13, hematocrit 38.2, platelets 361,000. Sodium 138, potassium 3.7, chloride 102, CO2 of 24, BUN 9, creatinine 0.92, glucose 95, magnesium 1.8, troponin less than 0.02, TSH 1.090. IMPRESSION: 1. Anisocoria. PLAN: The patient is to be admitted to the medical/surgical floor with remote telemetry on observation status. We will get the MRI to rule out any possible stroke, though this patient had no focal deficits on examination, she does have anisocoria. We will get the MRI to rule out CVA. If that is negative, the possibility of psychiatric component to her symptoms is likely, thus a psychiatric evaluation would probably ensue. We will continue all preadmission medications and continue her care on the medical/surgical floor.
[2018-04-12 22:00] VITALS: BP 134/65
[2018-04-13 06:00] VITALS: BP 103/50
[2018-04-13] MEDS ORDERED: ADDERALL 5 MG TAB PO SCH (08:00)
--- NOTE | 2018-04-13 08:41 | ECGEPIP ---
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
[2018-04-13] MEDS ORDERED: ESCITALOPRAM OXALATE 10 MG TAB (LEXAPRO) PO SCH (09:00)
[2018-04-13] MEDS ORDERED: MAGNESIUM OXIDE 400 MG TAB (MAG-OX) PO SCH (09:00)
[2018-04-13] MEDS: PENTOSAN POLYSULFATE SODIUM 100 MG CAP (ELMIRON) PO SCH (09:00)
[2018-04-13] MEDS ORDERED: TORSEMIDE 100 MG TAB PO SCH (09:00)
[2018-04-13] MEDS ORDERED: traMADol 50 MG TAB PO SCH (09:00)
[2018-04-13] MEDS: tiZANidine 4 MG TAB PO SCH (10:16)
[2018-04-13] MEDS: GABAPENTIN 300 MG CAP PO SCH (10:16)
[2018-04-13] MEDS: oxyBUTYnin *DITROPAN XL* 5 MG TABCR PO SCH (10:16)
[2018-04-13] MEDS: lamoTRIgine 100MG TAB PO SCH (10:16)
[2018-04-13] MEDS: DOXYCYCLINE HYCLATE 100 MG TAB PO SCH (10:18)
[2018-04-13] MEDS: POTASSIUM CHLORIDE 10 MEQ SR TABLET PO SCH (10:19)
[2018-04-13] MEDS: OMEPRAZOLE 20 MG CAP PO SCH (10:19)
--- NOTE | 2018-04-13 12:16 | DSES ---
DATE OF ADMISSION: 04/12/2018 DATE OF DISCHARGE: PRIMARY CARE PROVIDER: Krzysztof Holcomb MD PRINCIPAL DIAGNOSIS: Anisocoria. SECONDARY DIAGNOSIS: Perceived numbness and weakness of the legs. HISTORY: Vibha Dominguez was admitted yesterday after coming to the emergency room for leg symptoms but then felt needed admission because her pupils were unequal. She had no diplopia, headache, visual disturbance with this. Per the history and physical (H and P), she was admitted for an MRI scan, but she has now refused to have an MRI scan. She wants this done as an outpatient, an open MRI. She describes episodes where her legs and feet have become numb and that her leg gets too weak to move; but on examination, she has normal strength in her legs. Faced with a patient who does not want the MRI scan for what she was hospitalized and who wants an outpatient procedure done, at this point, I am just going to send her home. On examination today, her pupils are slightly unequal, but they are reactive. Extraocular movements are intact. There are no focal neurologic deficits whatsoever. Her speech is fluent and voluminous. Her leg strength is equal bilaterally. Sensation is normal in both feet. Calves, quadriceps, and hamstrings are normal. SIGNIFICANT LABORATORIES: No significant findings on laboratory work. IMAGING STUDIES: CT angiogram unremarkable. Ultrasound of her right leg unremarkable. She refused ultrasound of her left leg, which was the symptomatic one. CT of the brain unremarkable. DISPOSITION: She is discharged home in stable condition with plans for an outpatient MRI scan. No changes in her outpatient regimen were made. My clinical impression is that the leg symptoms are functional.
[2018-04-13 14:00] VITALS: BP 116/59
== END 2018-04-13 15:00 | disposition home or self-care (01) ==
LOC: M ED 11:51 → M ED INP 17:05 → M MSPAV 18:57
PROVIDERS: ADMIT Internal Medicine; ATTEND Family Medicine
DX: H57.02 Anisocoria (principal); R53.1 Weakness; F41.9 Anxiety disorder, unspecified; F32.9 Major depressive disorder, single episode, unspecified; I10 Essential (primary) hypertension; E78.5 Hyperlipidemia, unspecified; I25.10 Atherosclerotic heart disease of native coronary artery without angina pectoris; Z98.61 Coronary angioplasty status; J45.909 Unspecified asthma, uncomplicated; Z88.1 Allergy status to other antibiotic agents; Z88.5 Allergy status to narcotic agent; Z91.041 Radiographic dye allergy status; Z79.899 Other long term (current) drug therapy
CPT/HCPCS: 51701; 70450; 71046; 71275; 80048; 80076; 80307; 81001; 82550; 82553; 83690; 83735; 84100; 84439; 84443; 85025; 85379; 85610; 85730; 93005; 93041; 93970; 94760; 96374; 96375; 99285; G0480; J1200; J2930; Q9967

== ENCOUNTER → 2018-05-01 | Outpatient (CLI) | payer OTHER ==
[~2018-05-01] MED LIST changes: +DICY1CAP8 PO; +DOXY100T PO; +HYDR-3363 PO; +LAMO100T PO; +MYRB50TA PO; +ONDA4TAB5 PO; +OXYB10TA PO; +RANI150T PO
--- NOTE | 2018-05-02 02:11 | REP ---
Clinical: Left upper quadrant abdominal pain. Technique: Upright view of the chest with supine and upright views of the abdomen and pelvis. Findings: Frontal upright view of the chest demonstrates no acute cardiopulmonary process or free air below the diaphragm to suspect pneumoperitoneum. Supine and upright views of the abdomen and pelvis demonstrate nonspecific bowel gas pattern without obstruction or perforation. Prior cholecystectomy. No organomegaly. No abnormal calcifications. Skeletal structures normal for age. Impression: Nonspecific bowel gas pattern. Prior cholecystectomy.
== END ==
LOC: M CLY 14:49
PROVIDERS: ATTEND Family Medicine
DX: R10.12 Left upper quadrant pain (principal); Z90.49 Acquired absence of other specified parts of digestive tract

== ENCOUNTER → 2018-05-16 | Outpatient (REF) | payer OTHER ==
[~2018-05-16] MED LIST changes: +CEPH500C
[2018-05-16 16:24] LABS: BASO # 0.1 10^3/uL (0.0-0.2); BASO % 0.4 % (0.0-1.0); EOS # 0.1 10^3/uL (0.0-0.50); EOS % 0.9 % (0.0-3.0); HEMATOCRIT 33.1 % (36.0-47.0); HEMOGLOBIN 10.9 g/dl (12.0-15.5); LYMPH # 2.4 10^3/uL (1.5-4.5); LYMPH % 20.4 % (24.0-44.0); MEAN CORPUSCULAR HEMOGLOBIN 29.5 pg (27.0-33.0); MEAN CORPUSCULAR HGB CONC 32.9 g/dl (32.0-36.5); MEAN CORPUSCULAR VOLUME 89.5 fl (80.0-96.0); MONO # 0.6 10^3/uL (0.0-0.8); MONO % 5.4 % (0.0-5.0); NEUTROPHILS # 8.5 10^3/uL (1.8-7.7); NEUTROPHILS % 72.6 % (36.0-66.0); PLATELET COUNT, AUTOMATED 394 10^3/uL (150-450); WHITE BLOOD COUNT 11.7 10^3/uL (4.0-10.0)
[2018-05-16 16:51] LABS: ERYTHROCYTE SEDIMENTATION RATE 56 mm/hr (0-20)
[2018-05-16 17:00] LABS: ALBUMIN 2.6 GM/DL (3.2-5.2); ALT/SGPT 14 U/L (12-78); BILIRUBIN,TOTAL 0.2 MG/DL (0.2-1.0); BLOOD UREA NITROGEN 3 MG/DL (7-18); C REACTIVE PROTEIN QUANTITATIV 1.67 MG/DL (0.00-0.30); CALCIUM LEVEL 8.6 MG/DL (8.5-10.1); CARBON DIOXIDE LEVEL 29 MEQ/L (21-32); CHLORIDE LEVEL 98 MEQ/L (98-107); CREATININE FOR GFR 0.64 MG/DL (0.55-1.30); GLOMERULAR FILTRATION RATE > 60.0 (>58); GLUCOSE, FASTING 140 MG/DL (70-100); IMMUNOGLOBULIN G 475 MG/DL (681-1648); IMMUNOGLOBULIN M 39.6 MG/DL (40-230); POTASSIUM SERUM 2.8 MEQ/L (3.5-5.1); SODIUM LEVEL 137 MEQ/L (136-145); TOTAL PROTEIN 5.8 GM/DL (6.4-8.2)
[2018-05-16 17:06] LABS: IMMUNOGLOBULIN E < 3.6 IU/ML (<100)
[2018-05-21 00:07] LABS: CYCLIC CITRULLINATED PEPTIDE 8 units (0-19); IMMUNOGLOBULIN D <1.34 mg/dL (<14.11)
[2018-05-21 14:48] LABS: IgG SERUM (part of Subclasses) 574 mg/dL (700-1600); IgG Subclass 1 229 mg/dL (248-810); IgG Subclass 2 182 mg/dL (130-555); IgG Subclass 3 23 mg/dL (15-102); IgG Subclass 4 3 mg/dL (2-96)
[2018-05-22 00:07] LABS: HLA-B27 Negative (.)
== END ==
LOC: M SFHCPLAZ 12:35
PROVIDERS: ATTEND Internal Medicine Infectious Disease
DX: J32.9 Chronic sinusitis, unspecified (principal); L02.93 Carbuncle, unspecified; M25.50 Pain in unspecified joint

== ENCOUNTER 2018-05-20 12:45 | Emergency (ER) | payer OTHER ==
[~2018-05-20] VITALS: Ht 162.6 cm; Wt 98.6 kg
[~2018-05-20 12:45] MED LIST changes: -CEPH500C
[2018-05-20] MEDS ORDERED: CEPH500C (13:21)
[2018-05-20 13:47] LABS: HEMOGLOBIN 9.7 g/dl (12.0-15.5); RED BLOOD COUNT 3.28 10^6/uL (4.00-5.40); WHITE BLOOD COUNT 11.4 10^3/uL (4.0-10.0)
[2018-05-20 13:48] LABS: BASO # 0.1 10^3/uL (0.0-0.2); BASO % 0.4 % (0.0-1.0); EOS # 0.1 10^3/uL (0.0-0.50); EOS % 1.1 % (0.0-3.0); HEMATOCRIT 29.9 % (36.0-47.0); LYMPH # 2.7 10^3/uL (1.5-4.5); LYMPH % 23.9 % (24.0-44.0); MEAN CORPUSCULAR HEMOGLOBIN 29.6 pg (27.0-33.0); MEAN CORPUSCULAR HGB CONC 32.4 g/dl (32.0-36.5); MEAN CORPUSCULAR VOLUME 91.2 fl (80.0-96.0); MONO # 0.9 10^3/uL (0.0-0.8); MONO % 7.8 % (0.0-5.0); NEUTROPHILS # 7.6 10^3/uL (1.8-7.7); NEUTROPHILS % 66.4 % (36.0-66.0); PLATELET COUNT, AUTOMATED 307 10^3/uL (150-450)
[2018-05-20] MEDS ORDERED: LIDOCAINE 2% 5ML JELLY UROJET TOP ONE (14:00)
[2018-05-20 14:25] LABS: ALBUMIN 2.5 GM/DL (3.2-5.2); ALT/SGPT 8 U/L (12-78); BILIRUBIN,DIRECT 0.1 MG/DL (0.0-0.2); BILIRUBIN,TOTAL 0.4 MG/DL (0.2-1.0); BLOOD UREA NITROGEN 7 MG/DL (7-18); CALCIUM LEVEL 8.4 MG/DL (8.5-10.1); CARBON DIOXIDE LEVEL 26 MEQ/L (21-32); CHLORIDE LEVEL 101 MEQ/L (98-107); CPK CREATINE PHOSPHOKINASE 56 U/L (26-192); CREATININE FOR GFR 0.69 MG/DL (0.55-1.30); GLOMERULAR FILTRATION RATE > 60.0 (>58); GLUCOSE, FASTING 94 MG/DL (70-100); MB/CK RELATIVE INDEX 5.89 (< OR =4); POTASSIUM SERUM 4.3 MEQ/L (3.5-5.1); SODIUM LEVEL 137 MEQ/L (136-145); TOTAL PROTEIN 5.4 GM/DL (6.4-8.2); TROPONIN I 0.04 NG/ML (< 0.10)
--- NOTE | 2018-05-20 14:41 | REP ---
ABDOMEN AND FLAT UPRIGHT PA CHEST, THREE VIEWS: HISTORY: Abdominal pain. COMPARISON: 05/01/2018. A small amount of air is present in the intestine. Several air fluid levels are present. There are no dilated loops of intestine. There is no pneumoperitoneum. The lungs are clear. IMPRESSION: Nonspecific bowel gas pattern. Electronically Signed by Bert Pereira MD 05/20/2018 02:43 P
[2018-05-20] MEDS ORDERED: KETOROLAC 30 MG/ML VIAL (J1885) IV ONE (15:15)
[2018-05-20 18:10] VITALS: BP 114/63
[2018-05-20] MEDS ORDERED: traMADol 50 MG TAB PO ONE (18:15)
[2018-05-20] MEDS ORDERED: TRAM50TA2 PO (18:15)
[2018-05-20] MEDS ORDERED: FUROSEMIDE 40 MG TAB PO ONE (18:15)
--- NOTE | 2018-05-20 18:57 | REP ---
BILATERAL LOWER EXTREMITY DUPLEX VEINS: HISTORY: Edema. RIGHT LOWER EXTREMITY: There are no filling defects in the deep venous system. The deep venous system is patent. IMPRESSION:There is no deep venous thrombosis. LEFT LOWER EXTREMITY: There are no filling defects in the deep venous system. The deep venous system is patent. Soft tissue edema is present in the left popliteal fossa. IMPRESSION:There is no deep venous thrombosis. Electronically Signed by Bert Pereira MD 05/20/2018 07:01 P
--- NOTE | 2018-05-20 22:09 | ECGEPIP ---
Stationary ECG Study [facility] - ED Test Date: 2018-05-20 Pat Name: JARAD WALKER Department: Room: - Gender: F [employer] Internship: CARMEN : 1975 Requested By: Fredi Garduno Order Number: [id number] Reading MD: Sarthak Fuller Measurements Intervals [place] Rate: 95 P: 44 LA: 137 QRS: 55 QRSD: 84 T: 14 QT: 372 QTc: 468 Interpretive Statements SINUS RHYTHM LOW QRS VOLTAGE IN PRECORDIAL LEADS Electronically Signed On 05-20-2018 22:09:05 EDT by Sarthak Fuller
== END 2018-05-20 18:26 | disposition home or self-care (01) ==
LOC: M ED 12:45 → EDBD 12:45 → M ED 18:26
DX: F41.9 Anxiety disorder, unspecified (principal); R60.9 Edema, unspecified; I50.9 Heart failure, unspecified; N18.9 Chronic kidney disease, unspecified; J44.9 Chronic obstructive pulmonary disease, unspecified; E66.01 Morbid (severe) obesity due to excess calories; Z79.2 Long term (current) use of antibiotics; Z79.899 Other long term (current) drug therapy; Z87.891 Personal history of nicotine dependence; Z91.041 Radiographic dye allergy status; Z91.013 Allergy to seafood; Z88.1 Allergy status to other antibiotic agents; Z88.5 Allergy status to narcotic agent; Z88.8 Allergy status to other drugs, medicaments and biological substances
CPT/HCPCS: 36415; 51701; 74021; 80048; 80076; 81001; 82550; 82553; 83605; 84443; 85025; 93005; 93041; 93970; 94760; 96374; 99285; J1885

== ENCOUNTER 2018-05-28 15:08 | Inpatient (IN) | payer OTHER ==
[~2018-05-28] VITALS: Ht 162.6 cm; Wt 100.0 kg
[~2018-05-28 15:08] MED LIST changes: -ASPI81TAEC PO; -LAMO150T2 PO; -NITR4TASL SL; -SPIR50TA4 PO
[2018-05-28] MEDS ORDERED: BISACODYL 10 MG SUPP PR PRN (15:30)
[2018-05-28] MEDS ORDERED: BISACODYL 5 MG TAB PO PRN (15:30)
[2018-05-28] MEDS ORDERED: LORazepam 1 MG TAB PO ONE (15:45)
[2018-05-28] MEDS ORDERED: ONDANSETRON 4 MG TAB (S0181) PO PRN (15:45)
[2018-05-28] MEDS ORDERED: FLUCONAZOLE 100 MG TAB PO ONE (16:00)
[2018-05-28] MEDS: IPRATROPIUM 0.5MG/ALBUTEROL 2.5MG INH SOL UD 3ML (DUONEB)(J7620) NEB SCH ×2 (16:00→20:00)
--- NOTE | 2018-05-28 16:49 | HPE ---
DATE OF ADMISSION: 05/28/2018 CHIEF COMPLAINT: Multiple falls hyperkalemia. HISTORY: The patient has bipolar affective disorders on multiple medications for this disorder which are controlled by her psychiatrist at [facility]. She has history of multiple falls repeated episodes of hypokalemia and muscle spasms and pain for which she presents today. Her mother is with her and care provider from her insurance company. She has a somewhat slurred speech that she is alert, makes her wishes known. Seems very much aware of her surroundings. CHRONIC MEDICAL PROBLEMS: Those mentioned plus she has a history of flushes history of asthma. She has continues to smoke. She has a history of myocardial infarction and 2013. 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 She has had chronic lower extremity pains and has been seeing orthopedics about these has been told me she has psoriatic arthritis. MEDICATIONS: Mupirocin calcium topical antibiotic to open areas on her face for which she is seeing Dr. 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, Breo Ellipta 100 - 25 1 inhalation twice a day, albuterol HFA 2 puffs every 4 hours as needed, nebulization DuoNeb as needed every 6 hours, gabapentin 600 mg three times a day, hydroxyzine 10 mg three times a day, clonazepam 1/2 mg in the morning 1 mg in the evening, trazodone 150 mg at bedtime, Lexapro 30 mg daily, magnesium oxide 400 mg daily, Adderall 30 mg twice a day, 50 mg twice a day, omeprazole 40 mg twice a day, potassium chloride 30 mEq twice a day, spironolactone 50 mg twice a day, Ondansetron 8 mg three times a day, tizanidine 2 mg three times a day, Singulair 10 mg daily, Ranitidine 300 mg at bedtime, nitroglycerin 0.4 mg. Until recently she was on quetiapine 25 mg taking 4 tablets at bedtime. SOCIAL HISTORY: Lives alone recently estranged from her daughter and her a few years ago on a trampoline accident of her home on employed, smokes, admits to use of marijuana. REVIEW OF SYSTEMS: No headaches. No change in vision, she has a small mouth, chest wall valve with wall sores in mouth that developed over the last few days. No cough or wheezing recently. No chest pain. No vomiting or diarrhea. No fainting repeated falls as noted above, bruising. She says she has had bruising on the side of the her body. PHYSICAL EXAMINATION: Vital signs: Blood pressure 94/62, heart rate 90, respiratory rate 18, temperature 98, O2 sat 99% on room air, 217 pounds, height 65 inches. HEENT: Excoriated wound on her chin which is open but no weeping and no surrounding in duration. Full extraocular movements. She has a history of anisocoria not observed today. Oropharynx show ulcer in the left side of her tongue, irregular white lesions on the inner aspect of her lip. Microscopic examination confirmed the presence of branchings hyphae consistent with thrush and no neck masses noted. Lungs: Equal expansion. No wheezing, rales or rhonchi. Heart: Regular rhythm heart tones are soft. No murmur noted. Abdomen: Obese. No mass, guarding or tenderness. Extremities: The patient has been dramatically tender with light touch over the skin of her knees no rashes evident. She has puffy lower extremities but no pitting able to move all extremities. Lower extremities pulses are easily palpable. Deep tendon reflexes were not brisk fact very difficult to elicit. Moves all extremities spontaneously but has intermittent yelps of pain that she says her caused by localized spasm. ASSESSMENT: 1. History of repeated falls associated with hyperkalemia, cannot rule out episodic periodic hypokalemic paralysis. She certainly has well documented hyperkalemia and falls that have been observed by family. 2. Long-term psychiatric disorder and with labels of bipolar affective disorder as well as PTSD in her chart. Multiple current meds which could be contributing to her apparent neural functional impairment. Cannot rule out MS this time and MRI has been ordered. Will admit to establish her current electrolyte status replete as necessary. Check EKG to rule out prolonged QT syndrome since she has multiple meds that can prolong. Once MRI is available then proceed with neuro consultation. Consider psychiatric consultation would be desirable to wean of some of her current psych meds to limit overlapping side effects. For now we will reduce Klonopin dose slightly. 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
[2018-05-28 18:01] LABS: BASO % 0.3 % (0.0-1.0); EOS # 0.3 10^3/uL (0.0-0.50); EOS % 2.1 % (0.0-3.0); HEMATOCRIT 28.8 % (36.0-47.0); HEMOGLOBIN 9.3 g/dl (12.0-15.5); LYMPH # 3.2 10^3/uL (1.5-4.5); LYMPH % 25.4 % (24.0-44.0); MEAN CORPUSCULAR HEMOGLOBIN 29.3 pg (27.0-33.0); MEAN CORPUSCULAR HGB CONC 32.3 g/dl (32.0-36.5); MEAN CORPUSCULAR VOLUME 90.9 fl (80.0-96.0); MONO # 1.1 10^3/uL (0.0-0.8); MONO % 8.4 % (0.0-5.0); NEUTROPHILS # 7.9 10^3/uL (1.8-7.7); NEUTROPHILS % 63.4 % (36.0-66.0); PLATELET COUNT, AUTOMATED 368 10^3/uL (150-450); RED BLOOD COUNT 3.17 10^6/uL (4.00-5.40); WHITE BLOOD COUNT 12.4 10^3/uL (4.0-10.0)
[2018-05-28 18:36] LABS: ALBUMIN 2.3 GM/DL (3.2-5.2); BILIRUBIN,TOTAL 0.3 MG/DL (0.2-1.0); CALCIUM LEVEL 8.8 MG/DL (8.5-10.1); CREATININE FOR GFR 1.61 MG/DL (0.55-1.30); GLOMERULAR FILTRATION RATE 37.2 (>58); MAGNESIUM LEVEL 1.9 MG/DL (1.8-2.4); THYROID STIMULATING HORMONE 3.15 uIU/ML (0.358-3.740); TOTAL PROTEIN 5.7 GM/DL (6.4-8.2)
[2018-05-28] MEDS: traZODone 50 MG TAB PO SCH (21:00)
[2018-05-28] MEDS: PANTOPRAZOLE 40MG TAB (PROTONIX) PO SCH (21:00)
[2018-05-28] MEDS: GABAPENTIN 300 MG CAP PO SCH ×2 (21:00→23:11)
[2018-05-28 22:00] VITALS: BP 114/61
[2018-05-28] MEDS: ACETAMINOPHEN TAB 650MG DOSE (2X325MG) PO PRN (22:24)
[2018-05-28] MEDS ORDERED: ASPI81TAEC PO (22:29)
[2018-05-28] MEDS ORDERED: SPIR50TA4 PO (22:29)
[2018-05-28] MEDS ORDERED: LAMO150T2 PO (22:29)
[2018-05-28] MEDS ORDERED: NITR4TASL SL (22:29)
[2018-05-28] MEDS: POTASSIUM CHLORIDE 10 MEQ SR TABLET PO SCH (23:10)
[2018-05-28] MEDS: clonazePAM 1 MG TAB PO SCH (23:10)
[2018-05-28] MEDS: SPIRONOLACTONE 50 MG TAB PO SCH (23:16)
--- NOTE | 2018-05-29 01:09 | ECGEPIP ---
Stationary ECG Study [facility] Test Date: 2018-05-28 Pat Name: JARAD WALKER Department: Room: [place] [address] Gender: F Director Of Public Health: SILKE : 1975 Requested By: Krzysztof Cortez Order Number: [id number] Reading MD: Fred Dumas Measurements Intervals Bruno Rate: 82 P: 44 IL: 137 QRS: 49 QRSD: 81 T: 26 QT: 376 QTc: 441 Interpretive Statements SINUS RHYTHM LOW QRS VOLTAGE IN PRECORDIAL LEADS COMPARED TO THE LAST 2 TRACINGS IN THE SYSTEM, NO SIGNIFICANT CHANGES Electronically Signed On 05-29-2018 1:08:46 EDT by Fred Dumas
[2018-05-29 06:00] VITALS: BP 107/57
[2018-05-29 06:14] LABS: HEMATOCRIT 27.6 % (36.0-47.0); MEAN CORPUSCULAR HEMOGLOBIN 29.4 pg (27.0-33.0); MEAN CORPUSCULAR HGB CONC 32.6 g/dl (32.0-36.5); MEAN CORPUSCULAR VOLUME 90.2 fl (80.0-96.0); PLATELET COUNT, AUTOMATED 329 10^3/uL (150-450); RED BLOOD COUNT 3.06 10^6/uL (4.00-5.40); WHITE BLOOD COUNT 11.2 10^3/uL (4.0-10.0)
[2018-05-29 06:42] LABS: ALBUMIN 2.3 GM/DL (3.2-5.2); CALCIUM LEVEL 8.9 MG/DL (8.5-10.1); CREATININE FOR GFR 1.64 MG/DL (0.55-1.30); GLOMERULAR FILTRATION RATE 36.4 (>58); PHOSPHORUS LEVEL 5.6 MG/DL (2.5-4.9); POTASSIUM SERUM 5.1 MEQ/L (3.5-5.1)
--- NOTE | 2018-05-29 07:29 | CR ---
DATE OF CONSULTATION: 05/28/2018 REFERRING PHYSICIAN: Dr. Krzysztof Holcomb REASON FOR CONSULTATION: Pain in legs with numbness, weakness and imbalance of legs. HISTORY OF PRESENT ILLNESS: Vibha Domingeuz is a 43-year-old woman with history of bipolar disorder, fibromyalgia and chronic pain who states that she always had symptoms of neuropathy and bad shooting electrical pain in her legs since childhood, but it has worsened since 04/27/2018. She feels deep aching pain in her legs which is 10/10 in intensity and sitting on certain chairs cuts of circulation in her legs. The pain is decreased by laying down and sleeping with her legs hanging off the end of the bed. She has been feeling stiffness in her legs for last 4 months. She feels numbness and weakness in her feet and legs with imbalance. She also feels numbness, tingling and shooting pain in her hands and since April 2018. She has headaches once a week which are 4/10 in intensity. She also complains of 4/10 neck pain. She has 8/10 back pain. She has overactive bladder. She has history of coronary artery disease and follows with Dr. Watson. She saw Dr. Torres in the past. She has pedal edema in her feet, worse on the left side. She states that she has been falling over last several months. PAST MEDICAL HISTORY: Fibromyalgia, bipolar disorder, coronary artery disease status post myocardial infarction (NC) in 2012 and the patient follows with Dr. Watson, chronic lower extremity pain, and history of psoriatic arthritis. CURRENT MEDICATIONS: - aspirin 81 mg by mouth daily, but patient states that she stopped taking it in February 2018 when she was being weaned off her medications - mupirocin skin ointment for a wound on her chin - Breo Ellipta 100/25 mcg 1 inhalation twice a day - albuterol inhaler 2 puffs every 4 hours as needed - gabapentin 600 mg by mouth three times a day - hydroxyzine 10 mg by mouth three times a day - Klonopin 0.5 mg in the morning and 1 mg in the evening - trazodone 150 mg by mouth at bedtime - Lexapro 30 mg by mouth daily - magnesium oxide 400 mg by mouth daily - Adderall 30 mg by mouth twice a day - omeprazole 40 mg by mouth twice a day - Zofran 8 mg by mouth three times a day - tizanidine 2 mg by mouth three times a day - Singulair 10 mg by mouth daily - Zantac 300 mg by mouth daily - Seroquel 25 mg 4 tablets by mouth at bedtime SOCIAL HISTORY: The patient lives alone. Her few years ago on a trampoline accident at her home. She smokes marijuana off and on. FAMILY HISTORY: Noncontributory. REVIEW OF SYSTEMS: All systems were reviewed and found to be noncontributory except as mentioned in history present illness. PHYSICAL EXAMINATION: Blood pressure 94/62, pulse 90, respiratory rate 18, temperature 98, height 5 feet 5 inches, weight 217 pounds. Heart: Regular rate and rhythm. Lungs: Clear to auscultation. Abdomen: Soft. Nontender. 1+ pedal edema, worse on left side. No dysmetria or tremor. No signs of meningeal irritation. No musculoskeletal abnormalities. No rash. I was unable to palpate pulses in her feet. The patient is awake, alert, and oriented to place, person and time. Normal speech, comprehension and repetition. Extraocular muscles are intact. Visual gilman are full to confrontation. 5/5 strength in all four extremities. No facial weakness. Tongue and uvula are midline. Recent and distant memory is intact. Deep tendon flexes are 1+ in arms and knees and absent at ankles. There is no clonus. Plantars are downgoing. She has severe tenderness of her legs. She states that wearing her clothes hurt her legs. She almost screams during motor testing. She has decreased cold vibration sensation in her feet. Gait was not tested. ASSESSMENT: 1. Chronic leg pain bilaterally. 2. Numbness and weakness of legs with imbalance. 3. Concern for peripheral neuropathy. 4. There is concern for peripheral arterial disease. 5. Chronic back pain. PLAN: 1. MRI of brain and lumbosacral spine. 2. Arterial ultrasound and Doppler of both legs. 3. EMG nerve conduction study of arms and legs on an outpatient basis. 4. Consider pain management and pain clinic referral for management of her chronic pain. 5. Decrease or taper off gabapentin as it can cause pedal edema. 6. Follow with our office in 2-3 weeks after hospital discharge.
[2018-05-29] MEDS: GABAPENTIN 300 MG CAP PO SCH ×3 (08:16→21:08)
[2018-05-29] MEDS: ACETAMINOPHEN TAB 650MG DOSE (2X325MG) PO PRN ×2 (08:17→13:53)
[2018-05-29] MEDS: FLUCONAZOLE 100 MG TAB PO SCH (08:17)
[2018-05-29] MEDS: SPIRONOLACTONE 50 MG TAB PO SCH (08:18)
[2018-05-29] MEDS: ESCITALOPRAM OXALATE 10 MG TAB (LEXAPRO) PO SCH (08:18)
[2018-05-29] MEDS: POTASSIUM CHLORIDE 10 MEQ SR TABLET PO SCH (08:19)
[2018-05-29] MEDS: ADDERALL 5 MG TAB PO SCH ×2 (08:20→15:48)
[2018-05-29] MEDS: PANTOPRAZOLE 40MG TAB (PROTONIX) PO SCH ×2 (08:21→21:00)
[2018-05-29] MEDS: ENOXAPARIN 40 MG/0.4 ML SYRINGE (J1650) SC SCH (08:22)
--- NOTE | 2018-05-29 08:28 | REP ---
MR BRAIN WITHOUT CONTRAST: HISTORY: Fall. COMPARISON: CT 04/12/2018. The examination is very limited secondary to motion. There are no definite areas of abnormal signal intensity in the brain. There is no intraparenchymal hemorrhage, infarct, mass or midline shift. The ventricular system is normal in appearance. There is no extracerebral collection. A retention cyst is present in the right maxillary sinus. IMPRESSION: Limited study demonstrating no definite intracranial abnormality. Subarachnoid and intraventricular hemorrhage, fractures and pneumocephalus cannot be excluded . Electronically Signed by Bert Pereira MD 05/29/2018 08:37 A
--- NOTE | 2018-05-29 08:34 | REP ---
MR LUMBAR SPINE WITHOUT CONTRAST: HISTORY: Back pain. COMPARISON: 01/29/2015 The examination is very limited secondary to motion. Decreased signal intensity on T2-weighted images is present in the L5-S1 intervertebral disc. The disc is decreased in height. These findings are consistent with disc degeneration. There is no disc bulge or herniation at the L1-2 through L3-4 levels. The nerves exit the neural foramina without compression. A diffuse disc bulge is present at the L4-5 level. There is minimal compression of the thecal sac. There is hypertrophy of the posterior articulating facets. The L4 nerves exit the neural foramina without compression. A diffuse disc bulge and small central disc protrusion are present at the L5-S1 level. This abuts the thecal sac and S1 nerves. There is hypertrophy of the posterior articulating facets. The L5 nerves exit the neural foramina without compression. The conus medullaris is normal in appearance terminating at the level of the T12-L1 intervertebral disc. Normal signal intensity is present in the lumbar vertebral bodies. IMPRESSION: 1. Limited examination demonstrating a disc bulge at the L4-5 level with minimal thecal sac compression. 2. Diffuse disc bulge at the L5-S1 level. This abuts the thecal sac and S1 nerves. There is no significant change compared to the previous study. Electronically Signed by Bert Pereira MD 05/29/2018 08:38 A
[2018-05-29] MEDS: IPRATROPIUM 0.5MG/ALBUTEROL 2.5MG INH SOL UD 3ML (DUONEB)(J7620) NEB SCH ×4 (08:47→19:46)
[2018-05-29] MEDS ORDERED: INFLUENZA QUADRIVALENT PF VACCINE 0.5ML SYRINGE (90686) IM ONE (09:00)
[2018-05-29] MEDS ORDERED: TORSEMIDE (DEMADEX) 50 MG PER 1/2 TAB PO SCH (09:00)
[2018-05-29 09:41] LABS: PERCENT SATURATION 15.7 % (13.2-45.0)
[2018-05-29 09:57] LABS: APPEARANCE, URINE HAZY (CLEAR); BACTERIA, URINE AUTO 1+ (NEGATIVE); BILIRUBIN, URINE AUTO NEGATIVE (NEGATIVE); BLOOD, URINE BLOOD NEGATIVE (NEGATIVE); COLOR, URINE YELLOW (YELLOW); GLUCOSE, URINE (UA) AUTO NEGATIVE (NEGATIVE); KETONE, URINE AUTO NEGATIVE (NEGATIVE); LEUKOCYTE ESTERASE, URINE AUTO 1+ (NEGATIVE); MUCUS, URINE SMALL (NEGATIVE); NITRITE, URINE AUTO NEGATIVE (NEGATIVE); PROTEIN, URINE AUTO NEGATIVE (NEGATIVE); RBC, URINE AUTO 1 /HPF (0-3); SQUAMOUS EPITHELIAL CELL UR AU 5 /HPF (0-6); UROBILINOGEN, URINE AUTO 0.2 mg/dL (0.0-2.0); WBC, URINE AUTO 13 /HPF (0-3)
[2018-05-29] MEDS ORDERED: NS 500 ML IV ONE (10:15)
[2018-05-29] MEDS ORDERED: LORazepam 1 MG TAB PO ONE (11:30)
--- NOTE | 2018-05-29 11:41 | IPNPDOC ---
Subjective Date Seen The patient was seen on 05/29/18. Subjective Chief Complaint/HPI Patient lying in bed as I entered the room. She reports back pain with shooting pain into bilateral leg posteriorly. Constitutional: Denies: Chills, Fever Pulmonary: Denies: Dyspnea, Cough Cardiovascular: Reports: Edema; Denies: Chest Pain, Palpitations, Orthopnea Gastrointestinal: Reports: Abdominal Pain, Constipation; Denies: Nausea, Melena, Hematochezia Genitourinary: Reports: Incontinence; Denies: Dysuria Musculoskeletal: Reports: Back Pain, Leg Pain (bilateral ), Foot Pain (right foot ) Psych: Reports: Mood Normal Objective Physical Examination General Exam: Positive: Alert, Cooperative, Mild Distress (Reports pain in back ) ENT Exam: Positive: Other ENT (lips dry and mucous membranes slighty dry, no wh ite patches noted) Chest Exam: Positive: Normal air movement; Negative: Rales, Rhonchi, Wheezing Heart Exam: Positive: Rate Normal Abdomen Exam: Positive: Normal bowel sounds, Soft, Tenderness (tenderness to palpation LLQ); Negative: Hepatospenomegaly Extremity Exam: Positive: Edema (trace edema ) Neuro Exam: Positive: Normal Speech, Strength at 5/5 X4 ext (4/5 lower extremity ), Sensation Intact (lower extremity ), Other (Legs with spasm with touch ) Psych Exam: Positive: Mental status NL Assessment /Plan Assessment 05/29 -- Agree with above. I ordered her a heating pad and ordered Tramadol per advice of pain management. When I saw the patient, she was agitatedly moving her legs in bed, and told me that she had a lot of trouble with restless legs and cramping in her legs "recently." When I asked what had happened "recently," she told me that she had experienced "a lot of trauma." In the last several months her daughter moved out, without explanation she states, and that hurt her a lot; states she has been discussing this with her therapist. She may benefit from mental health consult during her hospitalization. -- CDT Problems (1) Leg pain, bilateral Status: Chronic Problem Specific Plan: Consult Specialist Problem Text: 05/29/18: Neurology was consulted. MRI and LS spine and brain performed. Tapering down Gabapentin. Pain consult added today. Marietta Waters will be in today. U/S of lower extremity pending Lumbar spine: IMPRESSION: 1. Limited examination demonstrating a disc bulge at the L4-5 level with minimal thecal sac compression. 2. Diffuse disc bulge at the L5-S1 level. This abuts the thecal sac and S1 nerves. There is no significant change compared to the previous study (2) OMER (acute kidney injury) Status: Acute Problem Text: 05/29/18: I suspect this may be volume depletion. Patient reports prior to hospital admission she had 3 episodes of vomiting day of/and day prior to admission. She is eating a drinking with a total of 360 this morning. She is urinating (incontinent). Torsemide was reduced to 50 mg daily prior to her admission. We will hold her diuretics. We will start to taper off Gabapentin. Patient reports Gabapentin is ineffective and that was also recommended by neurology. We will give a bolus of IVF today. (3) Repeated falls Status: Chronic Problem Specific Plan: Consult Specialist Problem Text: 05/29/18: Neurology was consulted. MRI brain performed Brain without contrast:Limited study demonstrating no definite intracranial abnormality. Subarachnoid and intraventricular hemorrhage, fractures and pneumocephalus cannot be excluded (4) Anemia Status: Acute Problem Text: 05/29/18: Patient denies any tarry black stools, she does not m enstruate LMP 2014 (5) Abdominal pain, left lower quadrant Status: Acute Problem Text: 05/29/18: Patient with hx of IBS and diverticulitis. Tenderness upon light and deep palpation. WBC slightly elevated 11.2, afebrile. We will obtain CT of abdomen without contrast for further eval. (6) Oral thrush Status: Acute Response to Treatment: Improving Problem Text: 05/29/18: Patient on Fluconazole Plan/VTE VTE Prophylaxis Ordered?: Yes (Lovenox) VS, I&O, 24H, Fishbone Vital Signs/I&O Vital Signs Date Time Temp Pulse Resp B/P (MAP) Pulse Ox O2 Delivery O2 Flow Rate FiO2 05/29/18 06:00 97.9 92 18 107/57 (74) 97 I&O- Last 24 Hours up to 6 AM 05/29/18 06:00 Intake Total 240 ml Output Total 0 ml Balance 240 ml Laboratory Data 24H LABS Laboratory Tests 2 05/28/18 17:34: Immature Granulocyte % (Auto) 0.4, White Blood Count 12.4H, Red Blood Count 3.17L, Hemoglobin 9.3L, Hematocrit 28.8L, Mean Corpuscular Volume 90.9, Mean Corpuscular Hemoglobin 29.3, Mean Corpuscular Hemoglobin Concent 32.3, Red Cell Distribution Width 19.8H, Platelet Count 368, Neutrophils (%) (Auto) 63.4, Lymphocytes (%) (Auto) 25.4, Monocytes (%) (Auto) 8.4H, Eosinophils (%) (Auto) 2.1, Basophils (%) (Auto) 0.3, Neutrophils # (Auto) 7.9H, Lymphocytes # (Auto) 3.2, Monocytes # (Auto) 1.1H, Eosinophils # (Auto) 0.3, Basophils # (Auto) 0.0, Nucleated Red Blood Cells % (auto) 0.0, Anion Gap 8, Glomerular Filtration Rate 37.2L, Blood Urea Nitrogen 31H, Creatinine 1.61H, Sodium Level 134L, Potassium Level 5.0, Chloride Level 102, Carbon Dioxide Level 24, Calcium Level 8.8, Aspartate Amino Transf (AST/SGOT) 16, Alanine Aminotransferase (ALT/SGPT) 15, Alkaline Phosphatase 155H, Total Bilirubin 0.3, Total Protein 5.7L, Albumin 2.3L, Magnesium Level 1.9, Total Creatine Kinase 85, Albumin/Globulin Ratio 0.68L, Thyroid Stimulating Hormone (TSH) 3.150 05/29/18 05:59: Nucleated Red Blood Cells % (auto) 0.0, Anion Gap 7L, Glomerular Filtration Rate 36.4L, Blood Urea Nitrogen 32H, Creatinine 1.64H, Sodium Level 134L, Potassium Level 5.1, Chloride Level 102, Carbon Dioxide Level 25, Calcium Level 8.9, Albumin 2.3L, Phosphorus Level 5.6H CBC/BMP Laboratory Tests 05/28/18 17:34 Red Blood Count 3.17 L, Mean Corpuscular Volume 90.9, Mean Corpuscular Hemoglobin 29.3, Mean Corpuscular Hemoglobin Concent 32.3, Red Cell Distribution Width 19.8 H, Neutrophils (%) (Auto) 63.4, Lymphocytes (%) (Auto) 25.4, Monocytes (%) (Auto) 8.4 H, Eosinophils (%) (Auto) 2.1, Basophils (%) (Auto) 0.3, Neutrophils # (Auto) 7.9 H, Lymphocytes # (Auto) 3.2, Monocytes # (Auto) 1.1 H, Eosinophils # (Auto) 0.3, Basophils # (Auto) 0.0, Calcium Level 8.8, Aspartate Amino Transf (AST/SGOT) 16, Alanine Aminotransferase (ALT/SGPT) 15, Alkaline Phosphatase 155 H, Total Bilirubin 0.3, Total Protein 5.7 L, Albumin 2.3 L 05/29/18 05:59 Red Blood Count 3.06 L, Mean Corpuscular Volume 90.2, Mean Corpuscular Hemoglobin 29.4, Mean Corpuscular Hemoglobin Concent 32.6, Red Cell Distribution Width 19.4 H, Anion Gap 7 L LEONOR LANDRY May 29, 2018 09:58 JAMES LÓPEZ DO May 29, 2018 22:26
[2018-05-29 14:00] VITALS: BP 97/58
[2018-05-29 14:39] LABS: CREATININE FOR GFR 1.71 MG/DL (0.55-1.30); GLOMERULAR FILTRATION RATE 34.7 (>58)
--- NOTE | 2018-05-29 14:48 | REP ---
CT abdomen and pelvis without contrast: History: Left lower abdomen pain. Comparison CT study is from April 21, 2017. CT findings: Preliminary digital business project analyst radiograph shows clips in the right upper quadrant. The lung bases are clear. There is no evidence of pleural effusion. There is some left coronary artery vascular calcification or stent material. No adrenal mass is seen. Pancreas is unremarkable. The gallbladder is surgically absent. No focal hepatic or splenic lesion is seen. The kidneys show no evidence of hydronephrosis, cyst or mass. No retroperitoneal mass or adenopathy is seen. No uterine or ovarian abnormality is seen. The urinary bladder is unremarkable. There is a small periumbilical ventral hernia transmitting a tiny amount of abdominal fat. No other abdominal wall defect is seen. The appendix is surgically absent with sutures medial to the cecum. There is mild mural thickening in the colon. In the proximal colon and distal colon, there is intramural fat deposition suggesting old inflammatory bowel disease. Small bowel loops are normal in caliber. No acute inflammation is appreciated. Impression: Mild mural thickening in the colon with submucosal fat deposition question old inflammatory bowel disease. No acute abdominal or pelvic abnormality. Post appendectomy and cholecystectomy. Small ventral hernia just superior to the umbilicus. Electronically Signed by Yony Navarro MD 05/29/2018 05:16 P
--- NOTE | 2018-05-29 15:34 | REP ---
Bilateral lower extremity arterial Doppler ultrasound: History: Leg pain. Peripheral arterial disease. Findings: Exam quality is inhibited by patient's inability to tolerate the probe pressure or cuff pressure. Patient movement inhibited scan quality further. No plaque or stenosis is seen. Arterial Doppler velocity chart right lower extremity: Right CF A 161 cm/S Profunda 130 Proximal SFA 180 Mid SFA 166 Distal SFA 121 Popliteal 82 Proximal AT A 34 Tibioperoneal trunk 95 Proximal PROGRAM MGR 58 Distal PROGRAM MGR 64 Distal AT A 85 Arterial Doppler velocity chart left lower extremity,: Left CF A 166 cm/S Profunda 111 Proximal SFA 160 Mid SFA 146 Distal SFA 137 Popliteal 81 Proximal AT A 36 Tibioperoneal trunk 97 Proximal PROGRAM MGR 71 Distal PROGRAM MGR 21 Distal AT A 60 Electronically Signed by Yony Navarro MD 05/29/2018 03:26 P
[2018-05-29] MEDS ORDERED: traMADol 50 MG TAB PO ONE (16:30)
--- NOTE | 2018-05-29 17:32 | CR ---
DATE OF CONSULTATION: 06/07/2018 This patient was referred to pain management for a consultation. Vibha Dominguez is a 43-year-old female with a history of bipolar disorder, fibromyalgia and chronic pain. She has been admitted to [facility] with bilateral leg pain. She is currently taking gabapentin 600 mg three times a day and has been given Tylenol for her pain, which seems to give very little pain relief. On examination today, patient appeared distressed. She was seated near her bed, accompanied by her mother, but verbalizing pain. Her heart rate was regular. Her lungs were clear. Both legs appeared edematous. Her pedal pulses were intact. My recommendation would be to start tramadol 50 mg every 6 hours for regular pain relief. Please feel free to contact the pain management clinic for further information and advice. Thank you. Kind regards, Kristin Bowman, Family Nurse Practitioner Pain Management [facility]
[2018-05-29] MEDS: traMADol 50 MG TAB PO PRN (21:07)
[2018-05-29] MEDS: traZODone 50 MG TAB PO SCH (21:08)
[2018-05-29] MEDS: clonazePAM 1 MG TAB PO SCH (21:09)
[2018-05-29 22:00] VITALS: BP 120/69
[2018-05-30] MEDS: traMADol 50 MG TAB PO PRN ×3 (04:07→15:50)
[2018-05-30 06:00] VITALS: BP 118/62
[2018-05-30 08:03] LABS: BASO % 0.4 % (0.0-1.0); EOS # 0.2 10^3/uL (0.0-0.50); EOS % 2.4 % (0.0-3.0); HEMATOCRIT 25.9 % (36.0-47.0); HEMOGLOBIN 8.3 g/dl (12.0-15.5); LYMPH # 2.7 10^3/uL (1.5-4.5); LYMPH % 29.9 % (24.0-44.0); MEAN CORPUSCULAR HEMOGLOBIN 29.5 pg (27.0-33.0); MEAN CORPUSCULAR VOLUME 92.2 fl (80.0-96.0); MONO # 0.8 10^3/uL (0.0-0.8); MONO % 9.3 % (0.0-5.0); NEUTROPHILS # 5.2 10^3/uL (1.8-7.7); NEUTROPHILS % 57.6 % (36.0-66.0); PLATELET COUNT, AUTOMATED 300 10^3/uL (150-450); RED BLOOD COUNT 2.81 10^6/uL (4.00-5.40); WHITE BLOOD COUNT 9.1 10^3/uL (4.0-10.0)
[2018-05-30 08:33] LABS: CALCIUM LEVEL 8.7 MG/DL (8.5-10.1); CREATININE FOR GFR 1.39 MG/DL (0.55-1.30); GLOMERULAR FILTRATION RATE 44.1 (>58); POTASSIUM SERUM 4.6 MEQ/L (3.5-5.1)
[2018-05-30] MEDS: PANTOPRAZOLE 40MG TAB (PROTONIX) PO SCH (09:00)
[2018-05-30] MEDS: IPRATROPIUM 0.5MG/ALBUTEROL 2.5MG INH SOL UD 3ML (DUONEB)(J7620) NEB SCH ×4 (09:25→20:48)
[2018-05-30] MEDS: LR 1,000 ML IV SCH ×2 (10:23→21:17)
[2018-05-30] MEDS: ADDERALL 5 MG TAB PO SCH ×2 (10:24→15:10)
[2018-05-30] MEDS: ENOXAPARIN 40 MG/0.4 ML SYRINGE (J1650) SC SCH (10:24)
[2018-05-30] MEDS: ESCITALOPRAM OXALATE 10 MG TAB (LEXAPRO) PO SCH (10:25)
[2018-05-30] MEDS: FLUCONAZOLE 100 MG TAB PO SCH (10:25)
[2018-05-30] MEDS: GABAPENTIN 300 MG CAP PO SCH ×3 (10:25→21:18)
--- NOTE | 2018-05-30 11:08 | IPNPDOC ---
Subjective Date Seen The patient was seen on 05/30/18. Subjective Chief Complaint/HPI Patient states she feels the same/no improvement. No acute events overnight Constitutional: Denies: Chills, Fever Pulmonary: Denies: Dyspnea, Cough Cardiovascular: Denies: Chest Pain, Palpitations, Orthopnea Gastrointestinal: Reports: Abdominal Pain, Constipation; Denies: Nausea, Vomiting Genitourinary: Denies: Dysuria Musculoskeletal: Reports: Back Pain, Spasms Psych: Reports: Mood Normal Objective Physical Examination General Exam: Positive: Alert, Cooperative, Mild Distress (Reports pain in back ) ENT Exam: Positive: Other ENT (lips dry and mucous membranes slighty dry, no white patches noted) Chest Exam: Positive: Normal air movement; Negative: Rales, Rhonchi, Wheezing Heart Exam: Positive: Rate Normal Abdomen Exam: Positive: Normal bowel sounds, Soft, Tenderness (tenderness to palpation LLQ), Other (non-distended); Negative: Hepatospenomegaly Extremity Exam: Positive: Edema (trace edema ) Neuro Exam: Positive: Normal Speech, Strength at 5/5 X4 ext (4/5 lower extremity ), Sensation Intact (lower extremity ), Other (Legs with spasm with touch ) Psych Exam: Positive: Mental status NL Assessment /Plan Problems (1) Somatic symptom disorder Status: Chronic Problem Text: case dw Dr. Borrego-Psych nurse receptionist-favors stopping ALL Psych meds x Lexapro and trazadone (attempted to contact [facility] multiple times s success) (2) Anemia Status: Acute Problem Text: 05/30/18: Hgb 8.3. %sat 16%, slightly low. Will add Folate and Vitamin B12 and stool for occult, held LMWH Patient denies any tarry black stools, she does not menstruate LMP 04/2018 hgb 13 (3) Physical deconditioning Problem Text: 05/29 not safe per PT (4) Leg pain, bilateral Status: Chronic Problem Specific Plan: Consult Specialist Problem Text: 05/30/18: Pain persists. Tramadol started per pain management recommendation. PT to continue to work with patient. ? somatic sensory disorder. Psych has been consulted. I did speak with her therapist, Ksenia, in [facility]. Current working dx: PTSD, ADHD, Complex Grief disorder and Munchausen. 05/29/18: Neurology was consulted. MRI and LS spine and brain performed. Tapering down Gabapentin. Pain consult added today. Marietta Waters will be in today. U/S of lower extremity pending 05/29: B LE arterial US-normal 05/29 lumbar MRI : IMPRESSION: 1. Limited examination demonstrating a disc bulge at the L4-5 level with minimal thecal sac compression. 2. Diffuse disc bulge at the L5-S1 level. This abuts the thecal sac and S1 nerves. There is no significant change compared to the previous study (5) OMER (acute kidney injury) Status: Acute Problem Text: 05/30/18: suspect ATN from dehydration (was on torse 50 BID!). We will start LR at 100/hr. Renal u/s with doppler ordered. Unfortunately this can not be done until tomorrow. We will continue to monitor and avoid nephrotoxic medications 05/29/18: I suspect this may be volume depletion. Patient reports prior to hospital admission she had 3 episodes of vomiting day of/and day prior to admission. She is eating a drinking with a total of 360 this morning. She is urinating (incontinent). Torsemide was reduced to 50 mg daily prior to her admission. We will hold her diuretics. We will start to taper off Gabapentin. Patient reports Gabapentin is ineffective and that was also recommended by neurology. We will give a bolus of IVF today. (6) Repeated falls Status: Chronic Problem Specific Plan: Consult Specialist Problem Text: 05/29/18: Neurology was consulted. MRI brain performed Brain without contrast:Limited study demonstrating no definite intracranial abnormality. Subarachnoid and intraventricular hemorrhage, fractures and pneumocephalus cannot be excluded (7) Abdominal pain, left lower quadrant Status: Acute Problem Text: 05/30/18: WBC 9.1. Afebrile. Hx of IBS. She has bowel care ordered CT scan abdomen and pelvis without contrast: Mild mural thickening in the colon with submucosal fat deposition question old inflammatory bowel disease. No acute abdominal or pelvic abnormality. Post appendectomy and cholecystectomy. Small ventral hernia just superior to the umbilicus 05/29/18: Patient with hx of IBS and diverticulitis. Tenderness upon light and deep palpation. WBC slightly elevated 11.2, afebrile. We will obtain CT of abdomen without contrast for further eval. (8) Oral thrush Status: Acute Response to Treatment: Improving Problem Text: 3/20/19: Patient on Fluconazole Plan/VTE VTE Prophylaxis Ordered?: Yes (Lovenox ) VS, I&O, 24H, Fishbone Vital Signs/I&O Vital Signs Date Time Temp Pulse Resp B/P (MAP) Pulse Ox O2 Delivery O2 Flow Rate FiO2 05/30/18 10:25 17 05/30/18 06:00 98.4 98 118/62 (80) 95 I&O- Last 24 Hours up to 6 AM 05/30/18 06:00 Intake Total 1710 ml Output Total 0 ml Balance 1710 ml Laboratory Data 24H LABS Laboratory Tests 2 05/29/18 13:57: Anion Gap 9, Glomerular Filtration Rate 34.7L, Blood Urea Nitrogen 31H, Creatinine 1.71H, Sodium Level 135L, Potassium Level 5.0, Chloride Level 101, Carbon Dioxide Level 25, Calcium Level 9.0 05/30/18 07:41: Anion Gap 7L, Glomerular Filtration Rate 44.1L, Blood Urea Nitrogen 27H, Creatinine 1.39H, Sodium Level 135L, Potassium Level 4.6, Chloride Level 102, Carbon Dioxide Level 26, Calcium Level 8.7, Immature Granulocyte % (Auto) 0.4, White Blood Count 9.1, Red Blood Count 2.81L, Hemoglobin 8.3L, Hematocrit 25.9L, Mean Corpuscular Volume 92.2, Mean Corpuscular Hemoglobin 29.5, Mean Corpuscular Hemoglobin Concent 32.0, Red Cell Distribution Width 19.5H, Platelet Count 300, Neutrophils (%) (Auto) 57.6, Lymphocytes (%) (Auto) 29.9, Monocytes (%) (Auto) 9.3H, Eosinophils (%) (Auto) 2.4, Basophils (%) (Auto) 0.4, Neutrophils # (Auto) 5.2, Lymphocytes # (Auto) 2.7, Monocytes # (Auto) 0.8, Eosinophils # (Auto) 0.2, Basophils # (Auto) 0.0, Nucleated Red Blood Cells % (auto) 0.0 05/30/18 09:10: CBC/BMP Laboratory Tests 05/29/18 13:57 Calcium Level 9.0 05/30/18 07:41 Calcium Level 8.7, Red Blood Count 2.81 L, Mean Corpuscular Volume 92.2, Mean Corpuscular Hemoglobin 29.5, Mean Corpuscular Hemoglobin Concent 32.0, Red Cell Distribution Width 19.5 H, Neutrophils (%) (Auto) 57.6, Lymphocytes (%) (Auto) 29.9, Monocytes (%) (Auto) 9.3 H, Eosinophils (%) (Auto) 2.4, Basophils (%) (Auto) 0.4, Neutrophils # (Auto) 5.2, Lymphocytes # (Auto) 2.7, Monocytes # (Auto) 0.8, Eosinophils # (Auto) 0.2, Basophils # (Auto) 0.0 LEONOR LANDRY May 30, 2018 11:08 Ivan Dong M.D. May 30, 2018 15:53
[2018-05-30 14:00] VITALS: BP 110/70
--- NOTE | 2018-05-30 16:21 | ECHO ---
DATE OF PROCEDURE: 05/30/2018 REFERRING PHYSICIAN: OUSMANE Chapman INDICATION: Edema. HEIGHT: 163 cm WEIGHT: 98 kg 2D MEASUREMENTS: Left atrium 3.3 cm Aortic root 2.7 cm Inferior vena cava 1.9 cm with more than 50% respiratory variation. CP estimate to be 5-10 mmHg Ventricular septum 0.85 cm Posterior wall 0.85 cm Left ventricle diastole 4.6 cm LVOT 1.9 cm DOPPLER MEASUREMENTS: Aortic valve velocity 186 cm/s LVOT velocity 133 cm/s LVOT VTI 26.7 cm Mitral E velocity 85.9 cm/s Mitral A velocity 82.4 cm/s Aparna deceleration time 148 m/s Very mild tricuspid regurgitation Estimated right ventricle systolic pressure 36 mmHg, assuming a pressure of 5 mmHg. Pulmonary artery systolic pressure 33 mmHg MITRAL ANNULAR TISSUE DOPPLER: E-prime septal 12.0 cm/s E-prime lateral 13.9 cm/s DESCRIPTION: Rhythm was sinus tachycardia. Image quality was adequate. No pericardial effusion. This is a 2D, M-mode, color flow Doppler and pulsed wave Doppler examination included mitral annular tissue Doppler. No pericardial effusion. CONCLUSIONS: 1. Normal left ventricle internal dimensions and wall thickness. Normal region LV wall motion and wall thickening. Normal LV systolic function. LVEF 65% by visual estimate. Normal LV diastolic function. 2. Suggestive of mild elevation of right ventricle systolic pressure and pulmonary artery systolic pressure, central venous pressure is estimated to be 5-10 mmHg. Normal right ventricle size and systolic function. 3. Otherwise normal appearing echocardiogram Doppler findings.
[2018-05-30] MEDS ORDERED: clonazePAM 0.5 MG TAB PO SCH (21:00)
[2018-05-30] MEDS: OMEPRAZOLE 20 MG CAP PO SCH (21:18)
[2018-05-30] MEDS: traZODone 50 MG TAB PO SCH (21:18)
[2018-05-30 22:00] VITALS: BP 118/62
[2018-05-31] MEDS: traMADol 50 MG TAB PO PRN ×2 (05:21→17:04)
[2018-05-31 06:00] VITALS: BP 120/62
[2018-05-31 06:00] LABS: HEMOGLOBIN 8.4 g/dl (12.0-15.5); MEAN CORPUSCULAR HEMOGLOBIN 29.4 pg (27.0-33.0); MEAN CORPUSCULAR HGB CONC 32.3 g/dl (32.0-36.5); MEAN CORPUSCULAR VOLUME 90.9 fl (80.0-96.0); PLATELET COUNT, AUTOMATED 291 10^3/uL (150-450); RED BLOOD COUNT 2.86 10^6/uL (4.00-5.40); WHITE BLOOD COUNT 10.3 10^3/uL (4.0-10.0)
[2018-05-31 06:32] LABS: BLOOD UREA NITROGEN 18 MG/DL (7-18); CALCIUM LEVEL 8.8 MG/DL (8.5-10.1); CARBON DIOXIDE LEVEL 25 MEQ/L (21-32); CHLORIDE LEVEL 103 MEQ/L (98-107); CREATININE FOR GFR 0.96 MG/DL (0.55-1.30); GLOMERULAR FILTRATION RATE > 60.0 (>58); GLUCOSE, FASTING 91 MG/DL (70-100); NT-PRO BNP 1571 PG/ML (<125); SODIUM LEVEL 137 MEQ/L (136-145)
[2018-05-31] MEDS: LR 1,000 ML IV SCH (07:05)
[2018-05-31] MEDS: IPRATROPIUM 0.5MG/ALBUTEROL 2.5MG INH SOL UD 3ML (DUONEB)(J7620) NEB SCH ×4 (07:40→20:00)
[2018-05-31] MEDS: ADDERALL 5 MG TAB PO SCH ×2 (08:06→15:00)
[2018-05-31] MEDS: ESCITALOPRAM OXALATE 10 MG TAB (LEXAPRO) PO SCH (08:07)
[2018-05-31] MEDS: OMEPRAZOLE 20 MG CAP PO SCH (08:07)
[2018-05-31] MEDS: GABAPENTIN 300 MG CAP PO SCH ×2 (08:07→15:22)
[2018-05-31] MEDS: FLUCONAZOLE 100 MG TAB PO SCH (08:07)
[2018-05-31] MEDS ORDERED: MULTIVITAMINS/MINERALS THERAP 1 TAB PO SCH (09:00)
--- NOTE | 2018-05-31 09:58 | REP ---
URINARY TRACT SONOGRAPHY WITH RENAL ARTERY DOPPLER ASSESSMENT: HISTORY: Acute kidney insufficiency. Evaluate for renal artery stenosis. MORPHOLOGIC FINDINGS: Scanning at the level of the urinary bladder shows no abnormality. Renal cortical echogenicity pattern is normal and renal contours are smooth. There is no evidence of hydronephrosis on either side. Right renal dimensions of 10.1 x 5.3 x 4.4 cm. The left kidney measures 10.2 x 3.8 x 6.0 cm. IMPRESSION: No morphologic abnormality noted. RENAL ARTERY DOPPLER ASSESSMENT: Peak systolic flow velocity in the abdominal aorta at the level of the main renal artery is normal measured at 171 cm/s. Peak systolic flow velocity in the left main renal artery is 115 cm/s and that in the right main renal artery 77 cm/s. Renal to aortic flow velocity ratios are therefore normal at 0.45 on the right and 0.67 on the left. The resistive indices and acceleration times are measured in the upper, mid, and lower pole intralobar arteries of each kidney and these values are normal bilaterally. Limited visualization of the proximal most segment of each main renal artery. IMPRESSION: No morphologic abnormality or renal Doppler evidence to suggest renal artery stenosis. Electronically Signed by Yony Navarro MD 05/31/2018 01:59 P
[2018-05-31 10:56] LABS: FOLATE 1.2 NG/ML (>5.4)
--- NOTE | 2018-05-31 10:56 | IPNPDOC ---
Subjective Date Seen The patient was seen on 05/31/18. Subjective Chief Complaint/HPI Patient lying in bed sleeping as I entered the room. Patient reports continued pain in legs, yelling out at times. Constitutional: Denies: Chills, Fever Pulmonary: Denies: Dyspnea, Cough Cardiovascular: Reports: Edema; Denies: Chest Pain, Palpitations, Orthopnea Gastrointestinal: Denies: Nausea, Vomiting, Abdominal Pain, Constipation Objective Physical Examination General Exam: Positive: Alert, Cooperative, Mild Distress (Reports pain in back ) ENT Exam: Positive: Other ENT (lips dry and mucous membranes slighty dry, no white patches noted) Chest Exam: Positive: Normal air movement; Negative: Rales, Rhonchi, Wheezing Heart Exam: Positive: Rate Normal Abdomen Exam: Positive: Normal bowel sounds, Soft, Other (non-distended); Negative: Tenderness, Hepatospenomegaly Extremity Exam: Positive: Edema (1-2+ edema ) Neuro Exam: Positive: Normal Speech, Strength at 5/5 X4 ext (4/5 lower extremity ), Sensation Intact (lower extremity ), Other (Legs with spasm with touch ) Psych Exam: Positive: Mental status NL, Other (hysteronic) Assessment /Plan Problems (1) Somatic symptom disorder Status: Chronic Problem Text: 05/31: This seems to be unchanged. We are adjusting her medications per Dr. Borrego' suggestion. I focused today on identifying possible symptom relief factors. She expresses concern about being deficient in potassium, magnesium, or some other micronutrient. This is a possible cause of her sensation of leg cramping. Recent labs that have been tested have not shown this. However, a folic acid level that was run today was noted to be low. Based on this it's possible that she has nutritional deficiency. I ordered a multivitamin and encouraged her to make sure she has plenty of fruits and vegetables with each meal she orders. She responded well to this suggestion and possible solution to her problem. I believe we should continue to reinforce improved nutrition as a possible partial solution to her difficulties. 05/30: Dr. Dong discussed the case Dr. Borrego-[employer] security installation technician-favors stopping ALL Psych meds x Lexapro and trazadone (attempted to contact Paulavahe Britton multiple times s success) (2) Anemia Status: Acute Problem Text: 05/31/18: Hgb 8.4. Stool for occult pending. I think it's important to look for sources of bleeding, since it seems to be an acute drop in her hemoglobin over the last month or so. It is possible for anemia and to give symptoms of restless leg syndrome, leg cramping or spasms and low back pain. Additionally her iron is slightly low, and she is full attention deficient. Her vitamin B12 is also borderline low. I added methylmalonic acid and homocysteine levels to her labs drawn today to see if these represent a true nutritional deficiency. These will be most useful in determining continued therapy when she follows up after her hospitalization as I do not expect to have these results back during her admission. 05/30/18: Hgb 8.3. %sat 16%, slightly low. Will add Folate and Vitamin B12 and stool for occult, held LMWH Patient denies any tarry black stools, she does not menstruate LMP 04/2018 hgb 13 (3) Folic acid deficiency anemia Problem Text: I'm not certain how relevant this is to her current situation, however, it could represent a possible organic cause for some of her symptoms. She is on chronic twice a day PPI at home. I sent off methylmalonic acid and homocysteine levels (send outs) to assist in management when she is out of the hospital. I ordered multivitamins as noted above. I ordered folic acid and B12 supplementation for while she is here in the hospital. I think the risk of these supplements is very low, and they can be stopped depending on the results of the methylmalonic acid and homocysteine levels once she is seen for hospital follow- up. (4) Leg pain, bilateral Status: Chronic Problem Specific Plan: Consult Specialist Problem Text: 05/31/18:Pain persists. This is chronic. Neurology has been consulted and plan to see patient as an outpatient. Tamadol per pain management. We added BenGay to her regimen as well. She needs to continue to work with PT. 05/30/18: Pain persists. Tramadol started per pain management recommendation. PT to continue to work with patient. ? somatic sensory disorder. Psych has been consulted. I did speak with her therapist, Ksenia, in [facility]. Current working dx: PTSD, ADHD, Complex Grief disorder and Munchausen. 05/29/18: Neurology was consulted. MRI and LS spine and brain performed. Tapering down Gabapentin. Pain consult added today. Marietta Waters will be in today. U/S of lower extremity pending 05/29: B LE arterial US-normal 05/29 lumbar MRI : IMPRESSION: 1. Limited examination demonstrating a disc bulge at the L4-5 level with minimal thecal sac compression. 2. Diffuse disc bulge at the L5-S1 level. This abuts the thecal sac and S1 nerves. There is no significant change compared to the previous study (5) Physical deconditioning Problem Text: 05/31/18: I encouraged patient to continue to work with PT 05/29 not safe per PT (6) Iron deficiency anemia Problem Text: Her iron is only slightly low. I don't think that this is the entirety of the cause of her anemia. She does seem to have an adequate reticulocyte count. I think the risk of once daily iron is fairly low for this patient, therefore I ordered it for her. This should be followed up on in the outpatient setting. (7) Repeated falls Status: Chronic Problem Specific Plan: Consult Specialist Problem Text: 05/29/18: Neurology was consulted. MRI brain performed Brain without contrast:Limited study demonstrating no definite intracranial abnormality. Subarachnoid and intraventricular hemorrhage, fractures and pneumocephalus cannot be excluded (8) Oral thrush Status: Acute Response to Treatment: Improving Problem Text: 05/29/18: Patient on Fluconazole (9) OMER (acute kidney injury) Status: Resolved Problem Text: 05/31/18: Resolved. Renal function back to baseline. IVF stopped. Renal U/S IMPRESSION: No morphologic abnormality noted. No morphologic abnormality or renal Doppler evidence to suggest renal artery stenosis. 05/30/18: suspect ATN from dehydration (was on torse 50 BID!). We will start LR at 100/hr. Renal u/s with doppler ordered. Unfortunately this can not be done until tomorrow. We will continue to monitor and avoid nephrotoxic medications 05/29/18: I suspect this may be volume depletion. Patient reports prior to hospital admission she had 3 episodes of vomiting day of/and day prior to admission. She is eating a drinking with a total of 360 this morning. She is urinating (incontinent). Torsemide was reduced to 50 mg daily prior to her admission. We will hold her diuretics. We will start to taper off Gabapentin. Patient reports Gabapentin is ineffective and that was also recommended by neurology. We will give a bolus of IVF today. (10) Abdominal pain, left lower quadrant Status: Resolved Problem Text: 05/31/18: No pain reported this morning 05/30/18: WBC 9.1. Afebrile. Hx of IBS. She has bowel care ordered CT scan abdomen and pelvis without contrast: Mild mural thickening in the colon with submucosal fat deposition question old inflammatory bowel disease. No acute abdominal or pelvic abnormality. Post appendectomy and cholecystectomy. Small ventral hernia just superior to the umbilicus 05/29/18: Patient with hx of IBS and diverticulitis. Tenderness upon light and deep palpation. WBC slightly elevated 11.2, afebrile. We will obtain CT of abdomen without contrast for further eval. Plan/VTE VTE Prophylaxis Ordered?: No VTE Exclusion Mechanical Proph: Other (Anemia new onset. Patient with TEDS and Seq.) Plan Family Medicine Attending Note: I saw and examined Ms. Dominguez, discussed with Leonor Day DNP. Agree with her note as documented. The feeling is that most of her symptoms are related to a functional pain syndrome or neurologic problem. This is likely true and we're adjusting her psychiatric meds to see if we can improved some of these issues. In the meantime looking for other possible s ources of organic causes for her symptoms. It does seem a nutritional deficiency could be a relevant cause. I addressed these as above. It might be useful to order a nutritional consultation to determine what she does at home and why she may be deficient in the first place. Unfortunately, I did not think this until late in the day on Sunday. This will probably have to be ordered on Sunday if desired. 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0, Chloride Level 103, Carbon Dioxide Level 25, Calcium Level 8.8, SY-Ypt-F-Type Natriuretic Peptide 1571H CBC/BMP Laboratory Tests 05/31/18 05:43 Red Blood Count 2.86 L, Mean Corpuscular Volume 90.9, Mean Corpuscular Hemoglobin 29.4, Mean Corpuscular Hemoglobin Concent 32.3, Red Cell Distribution Width 19.2 H, Calcium Level 8.8 LEONOR DAY May 31, 2018 10:56 am Russel De La Garza MD May 31, 2018 6:27 pm
[2018-05-31 14:00] VITALS: BP 121/64
[2018-05-31] MEDS ORDERED: ANALGESIC BALM CRM 120 GM TOP PRN (18:00)
[2018-05-31] MEDS ORDERED: CYANOCOBALAMIN 500 MCG TAB PO SCH (21:00)
[2018-05-31] MEDS ORDERED: FOLIC ACID 1 MG TAB PO SCH (21:00)
[2018-06-01] MEDS ORDERED: IRON POLYSAC (NIFEREX) 150 MG CAP PO SCH (09:00)
[2018-06-05 00:07] LABS: HOMOCYST(E)INE SERUM 120.2 umol/L (0.0-15.0)
== END 2018-05-31 20:30 | disposition left against medical advice (07) | DRG 58 ==
LOC: M MSPAV 16:22 → OBSVTOIN 05-30 10:59
PROVIDERS: ADMIT Family Medicine; ATTEND Family Medicine
DX: R29.6 Repeated falls (principal); N17.9 Acute kidney failure, unspecified; B37.0 Candidal stomatitis; E87.5 Hyperkalemia; G62.9 Polyneuropathy, unspecified; D52.9 Folate deficiency anemia, unspecified; L40.50 Arthropathic psoriasis, unspecified; F31.9 Bipolar disorder, unspecified; M62.838 Other muscle spasm; I25.2 Old myocardial infarction; R26.89 Other abnormalities of gait and mobility; F43.10 Post-traumatic stress disorder, unspecified; F45.9 Somatoform disorder, unspecified; F17.200 Nicotine dependence, unspecified, uncomplicated; I25.10 Atherosclerotic heart disease of native coronary artery without angina pectoris; I73.9 Peripheral vascular disease, unspecified; M79.7 Fibromyalgia; J45.909 Unspecified asthma, uncomplicated; L28.0 Lichen simplex chronicus; Z79.899 Other long term (current) drug therapy; Z79.82 Long term (current) use of aspirin; F90.9 Attention-deficit hyperactivity disorder, unspecified type; F43.20 Adjustment disorder, unspecified; F68.10 Factitious disorder imposed on self, unspecified; K58.9 Irritable bowel syndrome, unspecified; M79.661 Pain in right lower leg; M79.662 Pain in left lower leg

== ENCOUNTER → 2018-05-28 | Outpatient (REF) | payer OTHER ==
[~2018-05-28] MED LIST changes: +ASPI81TAEC PO; +CEPH500C; +LAMO150T2 PO; +NITR4TASL SL; +SPIR50TA4 PO
== END ==
LOC: M SFHCCLAY 14:20
PROVIDERS: ATTEND Family Medicine
DX: Z53.9 Procedure and treatment not carried out, unspecified reason (principal); E87.6 Hypokalemia

== ENCOUNTER → 2018-06-06 | Outpatient (REF) | payer OTHER ==
[~2018-06-06] MED LIST changes: +ASPI81TAEC PO; +LAMO150T2 PO; +NITR4TASL SL; +SPIR50TA4 PO
== END ==
LOC: M SFHCCLAY 15:31
PROVIDERS: ATTEND Family Medicine
DX: L98.9 Disorder of the skin and subcutaneous tissue, unspecified (principal)

== ENCOUNTER → 2018-06-17 | Outpatient (CLI) | payer OTHER ==
[~2018-06-17] MED LIST changes: -ASPI1TAB PO; +ASPI81TA26 PO; -METR-201 PO; +METR-265 PO
--- NOTE | 2018-06-18 10:40 | REP ---
Clinical: Lower back pain with recent fall. Technique: AP, lateral, coned-down views of the lumbosacral spine. Findings: Alignment and lordosis maintained. No acute fracture / compression injury or subluxation. Early advanced focal degenerative changes at L5-S1 includes endplate sclerosis, disc space narrowing, osteophytosis, and hypertrophic facet changes. Remainder of the examination appears relatively normal for age. Impression: No acute fracture / compression injury or subluxation. Early advanced degenerative change at L5-S1.
--- NOTE | 2018-06-18 10:41 | REP ---
Clinical: Left knee pain with recent fall. Technique: AP and lateral. Findings: Examination is age-appropriate. No acute fracture dislocation. No significant swelling. No obvious effusion. Impression: No acute fracture or dislocation.
--- NOTE | 2018-06-18 10:42 | REP ---
Clinical: Fall with left hip pain. Technique: AP and frog lateral views of the left hip. Findings: Minimal age-related changes include subtle increase sclerosis to the acetabular roof with marginal spurring. No acute fracture dislocation. Impression: Minimal age-related changes.
== END ==
LOC: M CLY 12:05
PROVIDERS: ATTEND Family Medicine
DX: M25.552 Pain in left hip (principal); M25.562 Pain in left knee; M51.37 Other intervertebral disc degeneration, lumbosacral region

== ENCOUNTER → 2018-06-17 | Outpatient (REF) | payer OTHER ==
[2018-06-17 17:36] LABS: BLOOD UREA NITROGEN 3 MG/DL (7-18); CALCIUM LEVEL 8.4 MG/DL (8.5-10.1); CARBON DIOXIDE LEVEL 29 MEQ/L (21-32); CHLORIDE LEVEL 104 MEQ/L (98-107); CREATININE FOR GFR 0.53 MG/DL (0.55-1.30); GLOMERULAR FILTRATION RATE > 60.0 (>58); GLUCOSE, FASTING 99 MG/DL (70-100); POTASSIUM SERUM 2.8 MEQ/L (3.5-5.1); SODIUM LEVEL 139 MEQ/L (136-145)
== END ==
LOC: M SFHCCLAY 11:58
PROVIDERS: ATTEND Family Medicine
DX: R60.9 Edema, unspecified (principal); M54.42 Lumbago with sciatica, left side

== ENCOUNTER → 2018-08-07 | Outpatient (REF) | payer OTHER ==
[2018-08-07 19:08] LABS: BASO # 0.1 10^3/uL (0.0-0.2); BASO % 0.5 % (0.0-1.0); EOS # 0.3 10^3/uL (0.0-0.50); EOS % 2.3 % (0.0-3.0); HEMATOCRIT 34.3 % (36.0-47.0); HEMOGLOBIN 10.7 g/dl (12.0-15.5); LYMPH # 2.5 10^3/uL (1.5-4.5); LYMPH % 22.4 % (24.0-44.0); MEAN CORPUSCULAR HEMOGLOBIN 29.2 pg (27.0-33.0); MEAN CORPUSCULAR HGB CONC 31.2 g/dl (32.0-36.5); MEAN CORPUSCULAR VOLUME 93.5 fl (80.0-96.0); MONO # 0.7 10^3/uL (0.0-0.8); MONO % 6.4 % (0.0-5.0); NEUTROPHILS # 7.6 10^3/uL (1.8-7.7); PLATELET COUNT, AUTOMATED 427 10^3/uL (150-450); RED BLOOD COUNT 3.67 10^6/uL (4.00-5.40); WHITE BLOOD COUNT 11.1 10^3/uL (4.0-10.0)
== END ==
LOC: M LAB REF 17:19
PROVIDERS: ATTEND Internal Medicine Nephrology
DX: R60.9 Edema, unspecified (principal); E87.6 Hypokalemia; Z79.1 Long term (current) use of non-steroidal anti-inflammatories (NSAID)

== ENCOUNTER 2018-09-13 00:15 | Observation (INO) | payer OTHER ==
[~2018-09-13] VITALS: Ht 162.6 cm; Wt 90.0 kg
[2018-09-13] MEDS ORDERED: diphenhydrAMINE INJ 50MG/ML VIAL (J1200) IV ONE (01:45)
[2018-09-13] MEDS ORDERED: methylPREDNISolone INJ 125 MG/2 ML VIAL (J2930) IV ONE (01:45)
[2018-09-13] MEDS ORDERED: ONDANSETRON 4 MG ORAL DISINTEGRATING TAB (Q0162 PER 1MG) PO ONE (01:45)
[2018-09-13] MEDS ORDERED: NS 1,000 ML IV ONE (01:45)
[2018-09-13 02:10] LABS: BASO % 0.2 % (0.0-1.0); EOS # 0.1 10^3/uL (0.0-0.50); EOS % 0.9 % (0.0-3.0); HEMATOCRIT 37.7 % (36.0-47.0); HEMOGLOBIN 12.3 g/dl (12.0-15.5); LYMPH # 1.6 10^3/uL (1.5-4.5); LYMPH % 11.7 % (24.0-44.0); MEAN CORPUSCULAR HEMOGLOBIN 28.6 pg (27.0-33.0); MEAN CORPUSCULAR HGB CONC 32.6 g/dl (32.0-36.5); MEAN CORPUSCULAR VOLUME 87.7 fl (80.0-96.0); MONO # 0.9 10^3/uL (0.0-0.8); MONO % 6.7 % (0.0-5.0); PLATELET COUNT, AUTOMATED 429 10^3/uL (150-450); WHITE BLOOD COUNT 13.8 10^3/uL (4.0-10.0)
[2018-09-13 02:20] LABS: INR 1.13; PROTHROMBIN TIME 14.2 SECONDS (11.8-14.0)
[2018-09-13 02:21] LABS: PARTIAL THROMBOPLASTIN TIME 24.7 SECONDS (25.0-38.4)
[2018-09-13 02:37] LABS: ALBUMIN 2.4 GM/DL (3.2-5.2); BILIRUBIN,DIRECT 0.1 MG/DL (0.0-0.2); BILIRUBIN,TOTAL 0.6 MG/DL (0.2-1.0); TOTAL PROTEIN 5.8 GM/DL (6.4-8.2)
[2018-09-13] MEDS ORDERED: ISOVUE-370 76% 100ML VIAL (Q9967) As Ordered ONE (02:39)
--- NOTE | 2018-09-13 04:51 | REPVR ---
EXAM: CT Abdomen and Pelvis With Contrast EXAM DATE/TIME: 09/13/2018 1:36 AM CLINICAL HISTORY: 43 years old, female; Abdominal pain; Generalized; Additional info: Abd pain, n/v/d, airfluid levels on xray TECHNIQUE: Imaging protocol: Axial computed tomography images of the abdomen and pelvis with intravenous contrast. Coronal and sagittal reformatted images were created and reviewed. Radiation optimization: All CT scans at this facility use at least one of these dose optimization techniques: automated exposure control; mA and/or kV adjustment per patient size (includes targeted exams where dose is matched to clinical indication); or iterative reconstruction. Contrast material: ISO; Contrast volume: 100 ml; Contrast route: AC; COMPARISON: CT ABD PELVIS W/O CONTRAST 05/29/2018 10:[address] ABD/PEL W/IV CONTRAST ONLY 04/21/2017 11:34:42 PM FINDINGS: Lungs: The visualized portions of the lung bases are normal. Liver: There is a somewhat ill-defined area of low attenuation in the right lobe of the liver measuring approximately 10 mm in diameter, unchanged compared to the exam from April,. No followup needed. Gallbladder and bile ducts: There has been a cholecystectomy. Pancreas: The pancreas is normal with no ductal dilation. Spleen: The spleen is normal. Adrenals: There is a nodule in the right adrenal gland measuring 1.8 x 1.2 cm, unchanged from April,. No followup needed. Kidneys and ureters: The kidneys are normal. There are no ureteral stones or hydronephrosis. Stomach and bowel: There is mild dilation of multiple small bowel loops with air-fluid levels. There is thickening of distal small bowel loops extending to the ileocecal junction. There is fluid in the right colon and mild long segment thickening of the cecum and right colon. There is stranding and a trace of fluid in the mesentery of the dilated small bowel loops and adjacent to the cecum and right colon. Fatty infiltration of the wall of the colon is noted, most prominent in the rectum, unchanged. Appendix: There are surgical clips and a right lower quadrant, probably related to prior appendectomy. Intraperitoneal space: There is trace fluid in the right paracolic gutter. There is no free intraperitoneal air. Vasculature: The aorta is normal. No aneurysm. Lymph nodes: Partially calcified small lymph nodes are again seen in in the marlyn hepatis, unchanged. There are multiple small retroperitoneal lymph nodes, not pathologically enlarged by CT criteria and similar to the prior exams. Bladder: The bladder is unremarkable. No stones identified. Reproductive: The uterus is unremarkable. Bones/joints: Degenerative endplate changes are seen at in the visualized spine, most prominent at L5-S1. Soft tissues: Unremarkable. IMPRESSION: 1. Dilated, fluid-filled small bowel loops extending through the distal ileum and into the right colon without a distinct transition point, and thickening of the distal small bowel loops and mild thickening of the cecum and right colon, most likely due to an infectious or inflammatory process with a secondary ileus. 2. Associated inflammatory changes and trace of fluid in the mesentery and around the cecum and right colon. No abscess collection or signs of perforation identified. Electronically signed by: Evelin Angel On 09/13/2018 04:50:50 AM
[2018-09-13] MEDS ORDERED: POTASSIUM CHLORIDE 10 MEQ SR TABLET PO ONE (05:30)
[2018-09-13] MEDS ORDERED: MAGN400T2 PO (05:56)
[2018-09-13] MEDS ORDERED: TORS20TA2 PO (05:56)
[2018-09-13] MEDS ORDERED: ACETAMINOPHEN TAB 650MG DOSE (2X325MG) PO PRN (06:15)
[2018-09-13] MEDS ORDERED: MAALOX 30 ML SUSP *UDC PO PRN (06:15)
[2018-09-13] MEDS ORDERED: MOM 30ML SUSPENSION UDC PO PRN (06:15)
--- NOTE | 2018-09-13 06:29 | HPEPDOC ---
General Date of Admission 09/13/18 Date of Service: Sep 13, 2018 Primary Care Physician: Krzysztof Holcomb MD Other Providers H&P PERFORMED BY DR MENDEZ Attending Physician: JAMES LÓPEZ DO Chief Complaint The patient is a 43-year-old female admitted with a reason for visit of Abdominal Pain. Source: Patient Exam Limitations: No limitations Timing/Duration: Week(s), Getting worse, Intermittent Severity: Moderate Associated Symptoms: Loss of appetite, Malaise, Nausea, Vomiting, Other (abdomen pain, constipation; ) History of Present Illness 43 yo female with history of IBS (constipation type - on liness) developed con stipation for 1 week. States 09/06/18 had "stomach bug" associated with N,V and abdomen pain. no other ill contacts. Was seen at the [facility] ED adn given IVF,zofran. She continued to get worse and on Sunday 09/10 had brief episode of diarrhea. She felt better after diarrhea then today, abdomen pain returned, worsened, associated with sharp stabbing gassy cramping pain that comes and goes. no recent flatus. states vomiting but able to keep medications down. CT Scan showed ileus and thickening (inflammatory changes) along cecum and right colon. Her last colonscopy 2 years ago. Home Medications Scheduled Aspirin (Aspirin EC) 81 Mg Tabec, 81 MG PO QHS, (Reported) Atorvastatin Calcium (Atorvastatin Calcium) 40 Mg Tab, 40 MG PO QHS, (Reported) Clonazepam (Clonazepam) 1 Mg Tab, 2 MG PO QHS, (Reported) Dextroamphetamine/Amphetamine (Adderall 5 mg Tablet) 1 Tab Tab, 30 MG PO BID, (Reported) Escitalopram Oxalate (Escitalopram Oxalate) 20 Mg Tab, 20 MG PO DAILY, (Reported) Fluticasone/Vilanterol (Breo Ellipta 100-25 Mcg INH) 1 Inh Inh, 1 PUFF INH DAILY, (Reported) Gabapentin (Gabapentin) 600 Mg Tab, 600 MG PO BID, (Reported) Lamotrigine (Lamotrigine) 150 Mg Tab, 150 MG PO BID, (Reported) PATIENT STATES THIS IS CURRENTLY BEING HELD BY HER PHYSICIAN Magnesium Oxide (Magnesium Oxide) 400 Mg Tablet, 400 MG PO QHS, (Reported) Montelukast Sodium (Singulair) 10 Mg Tab, 10 MG PO QHS, (Reported) Omeprazole (Omeprazole) 40 Mg Cap, 40 MG PO BID, (Reported) Potassium Chloride (Klor-Con M10) 10 Meq Tabcr, 30 MEQ PO BID, (Reported) Quetiapine Fumarate (Quetiapine Fumarate) 100 Mg Tab, 100 MG PO QHS, (Reported) THIS MEDICATION IS CURRENTLY BEING HELD BY HER PHYSICIAN Ranitidine HCl (Ranitidine HCl) 150 Mg Tab, 2 TAB PO QHS, (Reported) Spironolactone (Spironolactone) 50 Mg Tab, 50 MG PO BID, (Reported) Torsemide (Torsemide) 20 Mg Tablet, 20 MG PO DAILY, (Reported) Scheduled PRN Albuterol Sulfate (Ventolin Hfa) 108 Mcg/Act Aer, 2 PUFF INH Q4H PRN for SHORTNESS OF BREATH, (Reported) Dicyclomine HCl (Dicyclomine HCl) 10 Mg Cap, 10 MG PO QHS PRN for ABDOMINAL PAIN, (Reported) PATIENT STATES THIS IS A NEW MEDICATION AND SHE HAS NOT STARTED IT YET Hydroxyzine HCl (Hydroxyzine HCl) 25 Mg Tab, 25 MG PO TID PRN for ANXIETY, (Reported) Linaclotide (Linzess) 290 Mcg Cap, 290 MCG PO DAILY PRN for CONSTIPATION, (Reported) Nitroglycerin (Nitrostat) 0.4 Mg Subl, 0.4 MG SL NITRO PRN for CHEST PAIN, (Reported) Ondansetron HCl (Ondansetron HCl) 4 Mg Tab, 8 MG PO QID PRN for NAUSEA OR VOMITING, (Reported) Tizanidine HCl (Tizanidine HCl) 2 Mg Tab, 2 MG PO TID PRN for MUSCLE SPASMS, (Reported) Tramadol HCl (Tramadol HCl) 50 Mg Tab, 50 MG PO TID PRN for PAIN, (Reported) Trazodone HCl (Trazodone HCl) 150 Mg Tab, 150 MG PO QHS PRN for SLEEP, (Reported) Allergies Coded Allergies: Contrast Media (Verified Allergy, Unknown, hives, 09/13/18) FISH (Verified Allergy, Unknown, 09/13/18) clindamycin (Verified Allergy, Unknown, anaphylaxis, 09/13/18) codeine (Verified Allergy, Unknown, vomiting , 09/13/18) prochlorperazine (Verified Allergy, Unknown, hives, 09/13/18) shellfish derived (Verified Allergy, Unknown, anaphylaxis, 09/13/18) Past Medical History Medical History irritable bowel syndrome Asthma CAD with 1 stent Depression/anxiety GERD PTSD ADD Endometriosis FAMILY HISTORY: mother alive and healthy; father alives with CAD/VT Surgical history: Appy, Cholecystectomy Social Hx: smokes 10cig /day, no EtOH use A-FIB/CHADSVASC A-FIB History Current/History of A-Fib/PAF?: No Current PO Anticoag Therapy: No Review of Systems Other systems 10 systems reveiwed and negative except as per HPI Physical Examination General Exam: Positive: Alert, Cooperative, Mild Distress Eye Exam: Positive: PERRLA, Conjunctiva & lids normal, EOMI ENT Exam: Positive: Atraumatic, Mucous membr. moist/pink, Pharynx Normal, Other ENT (poor dentition) Neck Exam: Positive: Supple, +2 carotid pulse wo bruit, Lymphadenopathy Chest Exam: Positive: Clear to auscultation, Normal air movement; Negative: Rales, Rhonchi, Wheezing Heart Exam: Positive: Rate Normal, Regular Rhythm, Normal S1, Normal S2 Abdomen Exam: Positive: BS Hypoactive, Soft, Tenderness (LLQ) Extremity Exam: Positive: Normal pulses; Negative: Clubbing, Cyanosis, Edema Skin Exam: Positive: Nl turgor and temperature Neuro Exam: Positive: Normal Speech, Strength at 5/5 X4 ext, Normal Tone, Sensation Intact Psych Exam: Positive: Mental status NL, Mood NL, Oriented x [address] ABD/PEL IMPRESSION: 1. Dilated, fluid-filled small bowel loops extending through the distal ileum and into the right colon without a distinct transition point, and thickening of the distal small bowel loops and mild thickening of the cecum and right colon, most likely due to an infectious or inflammatory process with a secondary ileus. 2. Associated inflammatory changes and trace of fluid in the mesentery and around the cecum and right colon. No abscess collection or signs of perforation identified. Vital Signs Vital Signs Date Time Temp Pulse Resp B/P (MAP) Pulse Ox O2 Delivery O2 Flow Rate FiO2 09/13/18 05:10 93 20 142/84 (103) 98 Room Air 09/13/18 00:38 97.8 Laboratory Data Labs 24H Laboratory Tests 2 09/13/18 02:01: Immature Granulocyte % (Auto) 0.5, White Blood Count 13.8H, Red Blood Count 4.30, Hemoglobin 12.3, Hematocrit 37.7, Mean Corpuscular Volume 87.7, Mean Corpuscular Hemoglobin 28.6, Mean Corpuscular Hemoglobin Concent 32.6, Red Cell Distribution Width 16.2H, Platelet Count 429, Neutrophils (%) (Auto) 80.0H, Lymphocytes (%) (Auto) 11.7L, Monocytes (%) (Auto) 6.7H, Eosinophils (%) (Auto) 0.9, Basophils (%) (Auto) 0.2, Neutrophils # (Auto) 11.0H, Lymphocytes # (Auto) 1.6, Monocytes # (Auto) 0.9H, Eosinophils # (Auto) 0.1, Basophils # (Auto) 0.0, Nucleated Red Blood Cells % (auto) 0.0, Prothrombin Time 14.2H, Prothromb Time International Ratio 1.13, Activated Partial Thromboplast Time 24.7L, Lactic Acid Level 0.8, Aspartate Amino Transf (AST/SGOT) 19, Alanine Aminotransferase (ALT/SGPT) 23, Alkaline Phosphatase 218H, Total Bilirubin 0.6, Direct Bilirubin 0.1, Total Protein 5.8L, Albumin 2.4L, Albumin/Globulin Ratio 0.71L, Lipase 35L 09/13/18 02:26: POC Glucose (Misc Panel) 97, POC Sodium (Misc Panel) 135L, POC Potassium (Misc Panel) 2.9*L, POC Chloride (Misc Panel) 95L, POC Total CO2 (Misc Panel) 27.0, POC Blood Urea Nitrogen (Misc Panel < 3L, POC Ionized Calcium (Misc Panel) 4.4L, POC Creatinine (Misc Panel) 0.4L, POC Hematocrit (Misc Panel) 35.0L CBC/BMP Laboratory Tests 09/13/18 02:01 Red Blood Count 4.30, Mean Corpuscular Volume 87.7, Mean Corpuscular Hemoglobin 28.6, Mean Corpuscular Hemoglobin Concent 32.6, Red Cell Distribution Width 16.2 H, Neutrophils (%) (Auto) 80.0 H, Lymphocytes (%) (Auto) 11.7 L, Monocytes (%) (Auto) 6.7 H, Eosinophils (%) (Auto) 0.9, Basophils (%) (Auto) 0.2, Neutrophils # (Auto) 11.0 H, Lymphocytes # (Auto) 1.6, Monocytes # (Auto) 0.9 H, Eosinophils # (Auto) 0.1, Basophils # (Auto) 0.0 Assessment/Plan 1) ileus - unclear etiology; observation; non surgical abdomen; NPO, trial reglan 2) IBS with constipation - on liness. 3) hypokalemia - oral replacement given in ED. repeat in AM 4) asthma - stable without exacerbation - continue home regimen 5) depression/anxiety - continue home meds Cased signed out to Dr López CODE: FULL DVT PROPHLAXIS: Enoxaprin Plan / VTE VTE Prophylaxis Ordered?: Yes SEBASTIÁN MENDEZ DO Sep 13, 2018 05:29
[2018-09-13] MEDS ORDERED: ONDANSETRON 4 MG ORAL DISINTEGRATING TAB (Q0162 PER 1MG) PO PRN (06:45)
[2018-09-13] MEDS ORDERED: ONDANSETRON 4MG/2ML VIAL (J2405) IV PRN (06:45)
[2018-09-13 07:28] LABS: C REACTIVE PROTEIN QUANTITATIV 8.87 MG/DL (0.00-0.30)
--- NOTE | 2018-09-13 07:43 | REP ---
Clinical: Constipation. Technique: Upright view of the chest with supine and upright views of the abdomen and pelvis. Findings: Upright view of the chest demonstrates no free air below diaphragm to suspect pneumoperitoneum. Supine and upright views of the abdomen and pelvis demonstrate a few air-fluid levels as well as air-filled loops of small and large bowel with suggestions for scattered submucosal thickening. Differential diagnosis includes early/partial small bowel obstruction as well as enterocolitis. No organomegaly. Skeletal structures are intact. Evidence of prior cholecystectomy. Impression: 1. Findings suggest the possibility of early/partial small bowel obstruction and enterocolitis. Electronically Signed by Escobar Haddad MD 09/13/2018 07:35 A
[2018-09-13 08:07] VITALS: BP 118/65
[2018-09-13] MEDS: ENOXAPARIN 40 MG/0.4 ML SYRINGE (J1650) SC SCH (08:25)
[2018-09-13] MEDS: METOCLOPRAMIDE INJ 10MG/2ML VIAL (J2765) IV SCH ×3 (08:30→20:09)
[2018-09-13] MEDS: DOCUSATE SODIUM 100 MG CAP PO SCH ×2 (08:30→20:10)
--- NOTE | 2018-09-13 12:00 | IPNPDOC ---
Subjective Date Seen The patient was seen on 09/13/18. Subjective Chief Complaint/HPI Pt this morning states that her belly is feeling a bit better. She feels some pressure to move her bowels. She states that her abd was "gurgling" a short time ago. She denies N/V. General: Denies: Fatigue Constitutional: Denies: Chills, Fever Pulmonary: Denies: Dyspnea, Cough Cardiovascular: Denies: Chest Pain, Palpitations Gastrointestinal: Denies: Nausea, Vomiting, Diarrhea Psych: Reports: Mood Normal Objective Physical Examination General Exam: Positive: Alert, Cooperative, No Acute Distress ENT Exam: Positive: Mucous membr. moist/pink Neck Exam: Positive: Supple Chest Exam: Positive: Clear to auscultation, Normal air movement; Negative: Rales, Rhonchi, Wheezing Heart Exam: Positive: Rate Normal, Regular Rhythm, Normal S1, Normal S2 Abdomen Exam: Positive: BS Hypoactive, Soft, Tenderness (LUQ) Extremity Exam: Positive: Normal pulses; Negative: Clubbing, Cyanosis, Edema Skin Exam: Positive: Nl turgor and temperature Neuro Exam: Positive: Normal Speech Psych Exam: Positive: Mental status NL, Mood NL, Oriented x 3 Assessment /Plan Assessment Patient seen, agree with note. IV fluids were started, though patient felt that they were contributing to swelling and "filling up my belly." I attempted to convey that it was gas, not fluid, filling her belly, as she had an ileus. MOLST form filled out, and DNR ordered per patient request. -- CDT Problems (1) Ileus Status: Acute Response to Treatment: Stable Discussed With: Nurse, Patient Problem Specific Plan: Monitor Clinically, Repeat Labs Problem Text: Cont NPO, IVF, enc ambulation, has bowel care ordered. Plan/VTE VTE Prophylaxis Ordered?: Yes VS, I&O, 24H, Fishbone Vital Signs/I&O Vital Signs Date Time Temp Pulse Resp B/P (MAP) Pulse Ox O2 Delivery O2 Flow Rate FiO2 09/13/18 08:07 97.2 77 18 118/65 (82) 93 09/13/18 07:59 Room Air Laboratory Data 24H LABS Laboratory Tests 2 09/13/18 02:01: Immature Granulocyte % (Auto) 0.5, White Blood Count 13.8H, Red Blood Count 4.30, Hemoglobin 12.3, Hematocrit 37.7, Mean Corpuscular Volume 87.7, Mean Corpuscular Hemoglobin 28.6, Mean Corpuscular Hemoglobin Concent 32.6, Red Cell Distribution Width 16.2H, Platelet Count 429, Neutrophils (%) (Auto) 80.0H, Lymphocytes (%) (Auto) 11.7L, Monocytes (%) (Auto) 6.7H, Eosinophils (%) (Auto) 0.9, Basophils (%) (Auto) 0.2, Neutrophils # (Auto) 11.0H, Lymphocytes # (Auto) 1.6, Monocytes # (Auto) 0.9H, Eosinophils # (Auto) 0.1, Basophils # (Auto) 0.0, Nucleated Red Blood Cells % (auto) 0.0, Prothrombin Time 14.2H, Prothromb Time International Ratio 1.13, Activated Partial Thromboplast Time 24.7L, Lactic Acid Level 0.8, Aspartate Amino Transf (AST/SGOT) 19, Alanine Aminotransferase (ALT/SGPT) 23, Alkaline Phosphatase 218H, Total Bilirubin 0.6, Direct Bilirubin 0.1, C-Reactive Protein, Quantitative 8.87H, Total Protein 5.8L, Albumin 2.4L, Albumin/Globulin Ratio 0.71L, Lipase 35L 09/13/18 02:26: POC Glucose (Misc Panel) 97, POC Sodium (Misc Panel) 135L, POC Potassium (Misc Panel) 2.9*L, POC Chloride (Misc Panel) 95L, POC Total CO2 (Misc Panel) 27.0, POC Blood Urea Nitrogen (Misc Panel < 3L, POC Ionized Calcium (Misc Panel) 4.4L, POC Creatinine (Misc Panel) 0.4L, POC Hematocrit (Misc Panel) 35.0L CBC/BMP Laboratory Tests 09/13/18 02:01 Red Blood Count 4.30, Mean Corpuscular Volume 87.7, Mean Corpuscular Hemoglobin 28.6, Mean Corpuscular Hemoglobin Concent 32.6, Red Cell Distribution Width 16.2 H, Neutrophils (%) (Auto) 80.0 H, Lymphocytes (%) (Auto) 11.7 L, Monocytes (%) (Auto) 6.7 H, Eosinophils (%) (Auto) 0.9, Basophils (%) (Auto) 0.2, Neutrophils # (Auto) 11.0 H, Lymphocytes # (Auto) 1.6, Monocytes # (Auto) 0.9 H, Eosinophils # (Auto) 0.1, Basophils # (Auto) 0.0 SEBASTIÁN SOSA PA-C Sep 13, 2018 11:59 JAMES LÓPEZ DO Sep 14, 2018 00:13
[2018-09-13 13:18] LABS: ERYTHROCYTE SEDIMENTATION RATE 36 mm/hr (0-20)
[2018-09-13 14:00] VITALS: BP 120/60
[2018-09-13] MEDS: PERCOCET 5MG/325MG TAB PO PRN ×2 (14:16→22:08)
[2018-09-13] MEDS ORDERED: NS 1,000 ML IV SCH ×2 (16:15→21:55)
[2018-09-13 17:08] LABS: BLOOD UREA NITROGEN 7 MG/DL (7-18); CALCIUM LEVEL 9.1 MG/DL (8.5-10.1); CARBON DIOXIDE LEVEL 30 MEQ/L (21-32); CHLORIDE LEVEL 103 MEQ/L (98-107); CREATININE FOR GFR 0.82 MG/DL (0.55-1.30); GLOMERULAR FILTRATION RATE > 60.0 (>58); GLUCOSE, FASTING 103 MG/DL (70-100); POTASSIUM SERUM 3.5 MEQ/L (3.5-5.1); SODIUM LEVEL 138 MEQ/L (136-145)
--- NOTE | 2018-09-13 17:35 | ECGEPIP ---
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
[2018-09-13 22:00] VITALS: BP 141/74
[2018-09-14] MEDS: METOCLOPRAMIDE INJ 10MG/2ML VIAL (J2765) IV SCH (02:10)
[2018-09-14 06:00] VITALS: BP 112/56
[2018-09-14 06:12] LABS: BASO % 0.1 % (0.0-1.0); EOS # 0.1 10^3/uL (0.0-0.50); EOS % 0.5 % (0.0-3.0); HEMATOCRIT 36.5 % (36.0-47.0); HEMOGLOBIN 11.4 g/dl (12.0-15.5); LYMPH # 3.7 10^3/uL (1.5-4.5); LYMPH % 25.2 % (24.0-44.0); MEAN CORPUSCULAR HEMOGLOBIN 27.2 pg (27.0-33.0); MEAN CORPUSCULAR HGB CONC 31.2 g/dl (32.0-36.5); MEAN CORPUSCULAR VOLUME 87.1 fl (80.0-96.0); MONO # 1.1 10^3/uL (0.0-0.8); MONO % 7.5 % (0.0-5.0); NEUTROPHILS # 9.8 10^3/uL (1.8-7.7); NEUTROPHILS % 66.4 % (36.0-66.0); PLATELET COUNT, AUTOMATED 516 10^3/uL (150-450); RED BLOOD COUNT 4.19 10^6/uL (4.00-5.40); WHITE BLOOD COUNT 14.7 10^3/uL (4.0-10.0)
[2018-09-14 06:38] LABS: ALBUMIN 2.5 GM/DL (3.2-5.2); ALT/SGPT 18 U/L (12-78); BILIRUBIN,TOTAL 0.3 MG/DL (0.2-1.0); BLOOD UREA NITROGEN 7 MG/DL (7-18); CALCIUM LEVEL 8.9 MG/DL (8.5-10.1); CARBON DIOXIDE LEVEL 31 MEQ/L (21-32); CHLORIDE LEVEL 104 MEQ/L (98-107); GLOMERULAR FILTRATION RATE > 60.0 (>58); GLUCOSE, FASTING 96 MG/DL (70-100); POTASSIUM SERUM 3.3 MEQ/L (3.5-5.1); SODIUM LEVEL 140 MEQ/L (136-145); TOTAL PROTEIN 6.2 GM/DL (6.4-8.2)
--- NOTE | 2018-09-14 07:59 | REP ---
Clinical: Ileus. Technique: Two supine views of the abdomen and pelvis. Findings: Bowel gas pattern is nonspecific. No organomegaly. Skeletal structures are intact. Impression: Nonspecific bowel gas pattern. Electronically Signed by Escobar Haddad MD 09/14/2018 07:51 A
[2018-09-14] MEDS: DOCUSATE SODIUM 100 MG CAP PO SCH (08:59)
[2018-09-14] MEDS: ENOXAPARIN 40 MG/0.4 ML SYRINGE (J1650) SC SCH (09:00)
[2018-09-14] MEDS ORDERED: POTASSIUM CHLORIDE 10 MEQ SR TABLET PO ONE (12:45)
--- NOTE | 2018-09-14 23:34 | DS.PDOC ---
Discharge Summary General Date of Admission Sep 13, 2018 at 00:16 Date of Discharge September 14, 2018 Primary Care Physician: Krzysztof Holcomb MD Attending Physician: JAMES LÓPEZ DO Discharge Summary PROCEDURES PERFORMED DURING STAY: [None]. ADMITTING DIAGNOSES: 1. ileus 2. IBS with constipation 3. hypokalemia 4. asthma 5. depression and anxiety DISCHARGE DIAGNOSES: 1. ileus 2. IBS with constipation 3. hypokalemia 4. asthma 5. depression and anxiety COMPLICATIONS/CHIEF COMPLAINT: ILEUS. HISTORY OF PRESENT ILLNESS: 43 yo female with history of IBS (constipation type - on liness) developed constipation for 1 week. States 09/06/18 had "stomach bug" associated with N,V and abdomen pain. no other ill contacts. Was seen at the [facility] ED adn given IVF,zofran. She continued to get worse and on Sunday 09/10 had brief episode of diarrhea. She felt better after diarrhea then today, abdomen pain returned, worsened, associated with sharp st abbing gassy cramping pain that comes and goes. no recent flatus. states vomiting but able to keep medications down. CT Scan showed ileus and thickening (inflammatory changes) along cecum and right colon. Her last colonoscopy 2 years ago. HOSPITAL COURSE: Patient was admitted to med surg. She was made NPO except for sips and ice chips (though I suspect that she was taking in significantly more fluid than that.) She didn't like receiving IV fluids, and felt that they were pooling in her belly causing abdominal distention; she requested the overnight physician decrease the rate, and was suspected to have removed her IV overnight, refusing a replacement. In the a.m. she had no documented BMs but stated that she was passing flatus, so her diet was ordered to be advanced as tolerated. Unfortunately, she states that her family could only give her a ride home within a short window this afternoon, or they would not give her a ride until 08/18. She left the hospital without notifying any staff, ultimately calling the hospital to report her whereabouts when she reached home. DISCHARGE MEDICATIONS: Please see below. ALLERGIES: Please see below. PHYSICAL EXAMINATION ON DISCHARGE: VITAL SIGNS: Please see below. GENERAL: obese, NAD HEENT: mucous membranes moist NECK: supple CARDIOVASCULAR EXAMINATION: regular rate and rhythm RESPIRATORY EXAMINATION: clear to auscultation bilat ABDOMINAL EXAMINATION: mildly distended, bowel sounds positive, mild diffuse tenderness EXTREMITIES: no edema LABORATORY DATA: Please see below. IMAGING: CT abdomen and pelvis with contrast shows 1. Dilated, fluid-filled small bowel loops extending through the distal ileum and into the right colon without a distinct transition point, and thickening of the distal small bowel loops and mild thickening of the cecum and right colon, most likely due to an infectious or inflammatory process with a secondary ileus. 2. Associated inflammatory changes and trace of fluid in the mesentery and around the cecum and right colon. No abscess collection or signs of perforation identified. PROGNOSIS: fair LEFT AGAINST MEDICAL ADVICE, PRIOR TO EDUCATION, COUNSELING, OR COMPLETING PAPERWORK DISPOSITION: 07 Against Medical Advice. TIME SPENT ON DISCHARGE: Greater than 15 minutes. Vital Signs/I&Os Vital Signs Date Time Temp Pulse Resp B/P (MAP) Pulse Ox O2 Delivery O2 Flow Rate FiO2 09/14/18 09:00 18 09/14/18 06:00 96.9 77 112/56 (74) 92 09/13/18 07:59 Room Air I&O- Last 24 Hours up to 6 AM 09/14/18 06:00 Intake Total 1045 ml Balance 1045 ml Laboratory Data Labs 24H Laboratory Tests 2 09/14/18 05:35: Immature Granulocyte % (Auto) 0.3, White Blood Count 14.7H, Red Blood Count 4.19, Hemoglobin 11.4L, Hematocrit 36.5, Mean Corpuscular Volume 87.1, Mean Corpuscular Hemoglobin 27.2, Mean Corpuscular Hemoglobin Concent 31.2L, Red Cell Distribution Width 16.6H, Platelet Count 516H, Neutrophils (%) (Auto) 66.4H, Lymphocytes (%) (Auto) 25.2, Monocytes (%) (Auto) 7.5H, Eosinophils (%) (Auto) 0.5, Basophils (%) (Auto) 0.1, Neutrophils # (Auto) 9.8H, Lymphocytes # (Auto) 3.7, Monocytes # (Auto) 1.1H, Eosinophils # (Auto) 0.1, Basophils # (Auto) 0.0, Nucleated Red Blood Cells % (auto) 0.0, Anion Gap 5L, Glomerular Filtration Rate > 60.0, Blood Urea Nitrogen 7, Creatinine 0.60, Sodium Level 140, Potassium Level 3.3L, Chloride Level 104, Carbon Dioxide Level 31, Calcium Level 8.9, Aspartate Amino Transf (AST/SGOT) 13, Alanine Aminotransferase (ALT/SGPT) 18, Alkaline Phosphatase 171H, Total Bilirubin 0.3, Total Protein 6.2L, Albumin 2.5L, Albumin/Globulin Ratio 0.68L CBC/BMP Laboratory Tests 09/14/18 05:35 Red Blood Count 4.19, Mean Corpuscular Volume 87.1, Mean Corpuscular Hemoglobin 27.2, Mean Corpuscular Hemoglobin Concent 31.2 L, Red Cell Distribution Width 16.6 H, Neutrophils (%) (Auto) 66.4 H, Lymphocytes (%) (Auto) 25.2, Monocytes (%) (Auto) 7.5 H, Eosinophils (%) (Auto) 0.5, Basophils (%) (Auto) 0.1, Neutrophils # (Auto) 9.8 H, Lymphocytes # (Auto) 3.7, Monocytes # (Auto) 1.1 H, Eosinophils # (Auto) 0.1, Basophils # (Auto) 0.0, Calcium Level 8.9, Aspartate Amino Transf (AST/SGOT) 13, Alanine Aminotransferase (ALT/SGPT) 18, Alkaline Phosphatase 171 H, Total Bilirubin 0.3, Total Protein 6.2 L, Albumin 2.5 L Discharge Medications Scheduled Aspirin (Aspirin EC) 81 Mg Tabec, 81 MG PO QHS, (Reported) Atorvastatin Calcium (Atorvastatin Calcium) 40 Mg Tab, 40 MG PO QHS, (Reported) Clonazepam (Clonazepam) 1 Mg Tab, 2 MG PO QHS, (Reported) Dextroamphetamine/Amphetamine (Adderall 5 mg Tablet) 1 Tab Tab, 30 MG PO BID, (Reported) Escitalopram Oxalate (Escitalopram Oxalate) 20 Mg Tab, 20 MG PO DAILY, (Repo rted) Fluticasone/Vilanterol (Breo Ellipta 100-25 Mcg INH) 1 Inh Inh, 1 PUFF INH DAILY, (Reported) Gabapentin (Gabapentin) 600 Mg Tab, 600 MG PO BID, (Reported) Lamotrigine (Lamotrigine) 150 Mg Tab, 150 MG PO BID, (Reported) PATIENT STATES THIS IS CURRENTLY BEING HELD BY HER PHYSICIAN Magnesium Oxide (Magnesium Oxide) 400 Mg Tablet, 400 MG PO QHS, (Reported) Montelukast Sodium (Singulair) 10 Mg Tab, 10 MG PO QHS, (Reported) Omeprazole (Omeprazole) 40 Mg Cap, 40 MG PO BID, (Reported) Potassium Chloride (Klor-Con M10) 10 Meq Tabcr, 30 MEQ PO BID, (Reported) Quetiapine Fumarate (Quetiapine Fumarate) 100 Mg Tab, 100 MG PO QHS, (Reported) THIS MEDICATION IS CURRENTLY BEING HELD BY HER PHYSICIAN Ranitidine HCl (Ranitidine HCl) 150 Mg Tab, 2 TAB PO QHS, (Reported) Spironolactone (Spironolactone) 50 Mg Tab, 50 MG PO BID, (Reported) Torsemide (Torsemide) 20 Mg Tablet, 20 MG PO DAILY, (Reported) Scheduled PRN Albuterol Sulfate (Ventolin Hfa) 108 Mcg/Act Aer, 2 PUFF INH Q4H PRN for SHORTNESS OF BREATH, (Reported) Dicyclomine HCl (Dicyclomine HCl) 10 Mg Cap, 10 MG PO QHS PRN for ABDOMINAL PAIN, (Reported) PATIENT STATES THIS IS A NEW MEDICATION AND SHE HAS NOT STARTED IT YET Hydroxyzine HCl (Hydroxyzine HCl) 25 Mg Tab, 25 MG PO TID PRN for ANXIETY, (Reported) Linaclotide (Linzess) 290 Mcg Cap, 290 MCG PO DAILY PRN for CONSTIPATION, (Reported) Nitroglycerin (Nitrostat) 0.4 Mg Subl, 0.4 MG SL NITRO PRN for CHEST PAIN, (Reported) Ondansetron HCl (Ondansetron HCl) 4 Mg Tab, 8 MG PO QID PRN for NAUSEA OR VOMITING, (Reported) Tizanidine HCl (Tizanidine HCl) 2 Mg Tab, 2 MG PO TID PRN for MUSCLE SPASMS, (Reported) Tramadol HCl (Tramadol HCl) 50 Mg Tab, 50 MG PO TID PRN for PAIN, (Reported) Trazodone HCl (Trazodone HCl) 150 Mg Tab, 150 MG PO QHS PRN for SLEEP, (Reported) Allergies Coded Allergies: Contrast Media (Verified Allergy, Unknown, hives, 09/13/18) FISH (Verified Allergy, Unknown, 09/13/18) clindamycin (Verified Allergy, Unknown, anaphylaxis, 09/13/18) codeine (Verified Allergy, Unknown, vomiting , 09/13/18) prochlorperazine (Verified Allergy, Unknown, hives, 09/13/18) shellfish derived (Verified Allergy, Unknown, anaphylaxis, 09/13/18) JAMES LÓPEZ DO Sep 14, 2018 23:34
== END 2018-09-14 13:30 | disposition left against medical advice (07) ==
LOC: M ED 00:15 → M ED INP 00:16 → M MSPAV 08:11
PROVIDERS: ADMIT Family Medicine; ATTEND Family Medicine
DX: K56.7 Ileus, unspecified (principal); K58.1 Irritable bowel syndrome with constipation; Z53.21 Procedure and treatment not carried out due to patient leaving prior to being seen by health care provider; E87.6 Hypokalemia; J45.909 Unspecified asthma, uncomplicated; F43.10 Post-traumatic stress disorder, unspecified; F90.9 Attention-deficit hyperactivity disorder, unspecified type; N80.8 Other endometriosis; F41.9 Anxiety disorder, unspecified; F32.9 Major depressive disorder, single episode, unspecified; Z79.82 Long term (current) use of aspirin; Z91.041 Radiographic dye allergy status; Z91.013 Allergy to seafood; Z88.1 Allergy status to other antibiotic agents; Z88.5 Allergy status to narcotic agent; Z79.899 Other long term (current) drug therapy; I25.10 Atherosclerotic heart disease of native coronary artery without angina pectoris; Z98.61 Coronary angioplasty status
CPT/HCPCS: 36415; 74019; 74021; 74177; 80047; 80048; 80053; 80076; 83605; 83690; 85025; 85610; 85652; 85730; 86140; 93005; 93041; 96361; 96374; 96375; 96376; 99285; J1200; J2765; J2930; Q0162; Q9967

== ENCOUNTER → 2018-09-26 | Outpatient (REF) | payer OTHER ==
[~2018-09-26] MED LIST changes: +MAGN400T2 PO; +TORS20TA2 PO
== END ==
LOC: M LAB REF 16:52
PROVIDERS: ATTEND Internal Medicine Nephrology
DX: R30.0 Dysuria (principal)

== ENCOUNTER → 2018-09-30 | Outpatient (CLI) | payer OTHER | LOC: M SMT 15:27 | PROVIDERS: ATTEND Psychiatry & Neurology Neurology | DX: G62.9 Polyneuropathy, unspecified (principal) ==

== ENCOUNTER → 2018-10-03 | Outpatient (CLI) | payer OTHER ==
[2018-10-03 17:49] LABS: RHEUMATOID FACTOR QUANT < 10.0 IU/ML (<15.0); TOTAL PROTEIN 7.2 GM/DL (6.4-8.2)
[2018-10-03 18:00] LABS: FOLATE 0.7 NG/ML (>5.4); VITAMIN B12 LEVEL 285 PG/ML (247-911)
[2018-10-03 18:42] LABS: HEMOGLOBIN A1c 6.7 %
[2018-10-08 00:06] LABS: ARSENIC BLOOD 4 ug/L (2-23); LEAD BLOOD 1 ug/dL (0-4); Lyme Disease IgG/IgM Antibodie <0.91 ISR (0.00-0.90); Lyme Disease IgM Ab Quantitati <0.80 index (0.00-0.79); MERCURY BLOOD None Detected ug/L (0.0-14.9)
[2018-10-08 12:44] LABS: ALBUMIN 3.45 GM/DL (3.29-5.55); ALBUMIN % 47.9 % (55.8-66.1); ALPHA-1-GLOBULIN % 7.6 % (2.9-4.9); ALPHA-1-GLOBULINS 0.55 GM/DL (0.17-0.41); ALPHA-2-GLOBULINS 1.36 GM/DL (0.42-0.99); ALPHA-2-GLOBULINS % 18.9 % (7.1-11.8); BETA-1-GLOBULINS 0.61 GM/DL (0.28-0.60); BETA-1-GLOBULINS % 8.5 % (4.7-7.2); BETA-2-GLOBULINS 0.46 GM/DL (0.19-0.55); BETA-2-GLOBULINS % 6.4 % (3.2-6.5); GAMMA GLOBULIN % 10.7 % (11.1-18.8); GAMMA GLOBULINS 0.77 GM/DL (0.65-1.58)
[2018-10-10 14:08] LABS: ANCA-ATYPICAL <1:20 titer (Neg:<1:20); ANGIOTENSIN 1 CONVERTING ENZYM 54 U/L (14-82); ANTI DS-DNA AB <1:10 titer (.); ANTINUCLEAR ANTIBODIES DIRECT Negative (Negative); CERULOPLASMIN 39.9 mg/dL (19.0-39.0); COPPER PLASMA 163 ug/dL (72-166); CYTOPLASMIC NEUTROP AB ANCA-C <1:20 titer (Neg:<1:20); PERINUCLEAR AB ANCA-P <1:20 titer (Neg:<1:20); SJOGREN'S ANTI SS-A <0.2 AI (0.0-0.9); SJOGREN'S ANTI SS-B <0.2 AI (0.0-0.9); VITAMIN B1 LEVEL WHOLE BLOOD 101.8 nmol/L (66.5-200.0); VITAMIN B6,PYRIDOXAL PHOSPHATE 1.2 ug/L (2.0-32.8); VITAMIN E(ALPHA TOCOPHEROL) 7.4 mg/L (7.0-25.1); VITAMIN E(GAMMA TOCOPHEROL) 2.4 mg/L (0.5-5.5)
== END ==
LOC: M CLY 12:31
PROVIDERS: ATTEND Psychiatry & Neurology Neurology
DX: M79.2 Neuralgia and neuritis, unspecified (principal)

== ENCOUNTER → 2018-10-03 | Outpatient (REF) | payer OTHER | LOC: M SFHCCLAY 12:21 | PROVIDERS: ATTEND Family Medicine | DX: L03.211 Cellulitis of face (principal) ==

== ENCOUNTER → 2018-10-09 | Outpatient (REF) | payer OTHER | LOC: M SFHCCLAY 12:42 | PROVIDERS: ATTEND Nurse Practitioner Family | DX: L03.119 Cellulitis of unspecified part of limb (principal) ==

== ENCOUNTER → 2018-10-25 | Outpatient (REF) | payer OTHER ==
[~2018-10-25] MED LIST changes: -OXYB10TA PO; +OXYB10TA2 PO
== END ==
LOC: M SFHCCLAY 13:30
PROVIDERS: ATTEND Nurse Practitioner Family
DX: L03.211 Cellulitis of face (principal)

== ENCOUNTER → 2018-11-15 | Outpatient (REF) | payer OTHER | LOC: M SFHCCLAY 16:04 | PROVIDERS: ATTEND Family Medicine | DX: L08.9 Local infection of the skin and subcutaneous tissue, unspecified (principal) ==

== ENCOUNTER → 2018-11-27 | Outpatient (REF) | payer OTHER ==
[~2018-11-27] MED LIST changes: -DOXY100T16; -DOXY100T16 PO; +DOXY100T27; +DOXY100T27 PO; -LAMO100T PO; +LAMO100T3 PO; -LAMO150T2 PO; +LAMO150T3 PO; -OMEP40CA2; -OMEP40CA2 PO; +OMEP40CA97; +OMEP40CA97 PO; +ONDA-83 PO; -ONDA4TAB5 PO; -OXYB10TA2 PO; +OXYB10TA23 PO
== END ==
LOC: M LAB REF 17:23
PROVIDERS: ATTEND Internal Medicine Nephrology
DX: R30.0 Dysuria (principal)

== ENCOUNTER → 2019-01-24 | Outpatient (CLI) | payer OTHER ==
[~2019-01-24] MED LIST changes: +LAMO100T PO; -LAMO100T3 PO; +LAMO150T2 PO; -LAMO150T3 PO; -ONDA-83 PO; +ONDA4TAB5 PO; +OXYB10TA2 PO; -OXYB10TA23 PO
--- NOTE | 2019-01-24 19:13 | REP ---
Bilateral tib-fib series: Eight views. History: Bilateral leg ankle and foot pain. Findings: There is diffuse subcutaneous edema in the calves bilaterally. Bones, joints, and soft tissues are otherwise unremarkable. Impression: Diffuse subcutaneous soft tissue swelling. No bony abnormality. Electronically Signed by Yony Navarro MD 01/24/2019 07:04 P
--- NOTE | 2019-01-24 19:19 | REP ---
Bilateral foot series: Eight views: History: Bilateral ankle and foot injury. Findings: There is diffuse forefoot swelling on the right greater than left. Bones, joints and soft tissues are otherwise unremarkable. 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 On the left this is unchanged from comparison radiograph October 20, 2015. Impression: No acute bony abnormality. Mild soft tissue swelling. Electronically Signed by Yony Navarro MD 01/24/2019 07:54 P
--- NOTE | 2019-01-24 19:20 | REP ---
Left ankle series: Four views. History: Bilateral ankle pain. Findings: There is diffuse subcutaneous edema in the calf. Mild soft tissue swelling is seen about the ankle. Ankle mortise is intact. No fracture is seen. No evidence of arthropathy. Impression: No acute bony abnormality. Electronically Signed by Yony Navarro MD 01/24/2019 07:54 P
== END ==
LOC: M WUC 17:46
PROVIDERS: ATTEND Physician Assistant
DX: M79.661 Pain in right lower leg (principal); M79.662 Pain in left lower leg; M25.572 Pain in left ankle and joints of left foot

== ENCOUNTER → 2019-01-30 | Outpatient (CLI) | payer OTHER ==
--- NOTE | 2019-01-30 16:28 | REP ---
Right foot: Four views. History: Right foot pain. Findings: Four views of the right foot are compared with the April 01, 2015 prior radiographs. There is mild dorsal soft tissue swelling over the forefoot. Overall mineralization pattern is normal. There is no evidence of fracture or subluxation. There is a fairly large accessory navicular ossicle. This is unchanged. Impression: No acute bony abnormality. Os naviculare again noted. Dorsal soft tissue swelling. Electronically Signed by Yony Navarro MD 01/30/2019 04:20 P
== END ==
LOC: M CLY 15:37
PROVIDERS: ATTEND Family Medicine
DX: M79.671 Pain in right foot (principal)

== ENCOUNTER → 2019-02-27 | Outpatient (REF) | payer OTHER ==
[~2019-02-27] MED LIST changes: -LAMO100T PO; +LAMO100T3 PO; -LAMO150T2 PO; +LAMO150T3 PO
[2019-02-28 11:43] LABS: HEMATOCRIT 37.6 % (36.0-47.0); HEMOGLOBIN 11.2 g/dl (12.0-15.5); MEAN CORPUSCULAR HEMOGLOBIN 24.1 pg (27.0-33.0); MEAN CORPUSCULAR HGB CONC 29.8 g/dl (32.0-36.5); MEAN CORPUSCULAR VOLUME 80.9 fl (80.0-96.0); PLATELET COUNT, AUTOMATED 491 10^3/uL (150-450); RED BLOOD COUNT 4.65 10^6/uL (4.00-5.40); WHITE BLOOD COUNT 14.8 10^3/uL (4.0-10.0)
[2019-02-28 11:47] LABS: ALT/SGPT 27 U/L (12-78); BILIRUBIN,TOTAL 0.4 MG/DL (0.2-1.0); BLOOD UREA NITROGEN 6 MG/DL (7-18); C REACTIVE PROTEIN QUANTITATIV 1.99 MG/DL (0.00-0.30); CALCIUM LEVEL 8.8 MG/DL (8.5-10.1); CARBON DIOXIDE LEVEL 28 MEQ/L (21-32); CHLORIDE LEVEL 105 MEQ/L (98-107); CREATININE FOR GFR 0.61 MG/DL (0.55-1.30); GLOMERULAR FILTRATION RATE > 60.0 (>58); GLUCOSE, FASTING 103 MG/DL (70-100); POTASSIUM SERUM 4.2 MEQ/L (3.5-5.1); SODIUM LEVEL 140 MEQ/L (136-145); TOTAL PROTEIN 6.7 GM/DL (6.4-8.2)
[2019-02-28 12:20] LABS: HEMOGLOBIN A1c 6.4 %
[2019-02-28 12:31] LABS: ERYTHROCYTE SEDIMENTATION RATE 52 mm/hr (0-20)
== END ==
LOC: M SFHCCLAY 15:03
PROVIDERS: ATTEND Family Medicine
DX: G60.8 Other hereditary and idiopathic neuropathies (principal); R73.09 Other abnormal glucose